=== PATIENT | female | born 1955 | race Caucasian/White ===

== ENCOUNTER → 2020-05-05 09:01 | Outpatient (BNVA) | payer MEDICARE, MEDICAID, SELFPAY | PROVIDERS: PCP Family Medicine Addiction Medicine; Visit Provider Internal Medicine Gastroenterology | DX: R13.10 Dysphagia, unspecified (principal) | CPT/HCPCS: 99212 ==

== ENCOUNTER 2020-06-08 10:43 | Day surgery (SDC) | payer MEDICARE, MEDICAID, SELFPAY ==
--- NOTE | 2020-06-06 15:18 | P.CONAN_ITS ---
Documented by User: Ryanne Adame 06/06/20 15:19 HPI - Anesthesia Eval Consult details Narrative: 65yo F for Upper Endoscopy with Balloon Dilitation Resides at [facility], signs for self per RN at [facility] *DNR* s/p EGD with dilation 03/2019 with MAC per old record: 02 dependant, xarelto for DVT, chronic opioids (cx'd 05/11/20 d/t anticoag not stopped) PMFSH Active Problems Active Problems: All Active Problems (Updated 05/10/20 @ 14:02 by Ryanne Adame) Dysphagia (Acute) Past Medical History Medical History (Updated 05/10/20 @ 14:02 by Ryanne Adame) Anemia Asthma Back pain Cerebrovascular disease Chronic respiratory failure COPD (chronic obstructive pulmonary disease) DVT (deep venous thrombosis) Dysphagia Gastrojejunostomy tube dislodgement GERD (gastroesophageal reflux disease) History of pseudoachalasia of esophagus HLD (hyperlipidemia) Hypothyroid Impaired mobility Neuropathy Osteoarthritis Psychological disorder Surgical History Surgical History (Updated 05/10/20 @ 14:02 by Ryanne Adame) History of esophagogastroduodenoscopy (EGD) Social History Social History Smoking Status: Former smoker Use of substances other than those prescribed or required for medical reasons: No Advance Directives: No Advance Directives Information Provided: Yes Meds Allergies Allergy/AdvReac Type Severity Reaction Status Date / Time ceftriaxone [CEFTRIAXONE] Allergy Unknown UNKNOWN Verified 06/08/20 11:45 monosodium glutamate [MSG] Allergy Unknown UNKNOWN Verified 06/08/20 11:45 morphine [MORPHINE] Allergy Unknown UNKNOWN Verified 06/08/20 11:46 Home Medications Medication Instructions Recorded Confirmed Last Taken Type albuterol sulfate INHALATION 06/08/20 Unknown History albuterol sulfate [Ventolin HFA] INHALATION 06/08/20 Unknown History arformoterol [Brovana] 1 vial INHALATION BID 06/08/20 06/08/20 Unknown History budesonide 1 vial INHALATION BID 06/08/20 06/08/20 Unknown History celecoxib 1 cap PO DAILY 06/08/20 06/08/20 Unknown History diclofenac sodium TOPICAL 06/08/20 Unknown History divalproex PO 06/08/20 06/08/20 06/08/20 History doxycycline hyclate 1 tab PO BID 06/08/20 06/08/20 Unknown History duloxetine 1 cap PO DAILY 06/08/20 06/08/20 06/08/20 History hydromorphone PO 06/08/20 06/08/20 History ipratropium-albuterol [Combivent INHALATION 06/08/20 Unknown History Respimat] levothyroxine 1 tab PO DAILY 06/08/20 06/08/20 06/08/20 History lidocaine HCl 2 DC 06/08/20 Unknown History mirtazapine 1 tab PO BEDTIME 06/08/20 06/08/20 Unknown History nystatin [Nystop] 1 applic TOPICAL BID-TID 06/08/20 06/08/20 Unknown History omeprazole PO 06/08/20 Unknown History ondansetron HCl PO 06/08/20 Unknown History pravastatin 1 tab PO BEDTIME 06/08/20 06/08/20 Unknown History rivaroxaban [Xarelto] 1 tab PO DAILY 06/08/20 06/08/20 06/04/20 History umeclidinium [Incruse Ellipta] 1 puff INHALATION DAILY 06/08/20 06/08/20 Unknown History valproic acid (as sodium salt) PO 06/08/20 Unknown History Exam Exam Date and Time: June 06, 2020 151 Assessment and Plan Assessment Anesthesia Assessment: Chart Reviewed Documented by User: Carla Carter 06/08/20 15:10 [facility] Past Medical History Medical History (Updated 05/10/20 @ 14:02 by Ryanne Adame) Anemia Asthma Back pain Cerebrovascular disease Chronic respiratory failure COPD (chronic obstructive pulmonary disease) DVT (deep venous thrombosis) Dysphagia Gastrojejunostomy tube dislodgement GERD (gastroesophageal reflux disease) History of pseudoachalasia of esophagus HLD (hyperlipidemia) Hypothyroid Impaired mobility Neuropathy Osteoarthritis Psychological disorder Family History Family history of problems with anesthesia: No Surgical History Surgical History (Updated 05/10/20 @ 14:02 by Ryanne Adame) History of esophagogastroduodenoscopy (EGD) History of Problems with Anesthesia: No Social History Social History Smoking Status: Former smoker Use of substances other than those prescribed or required for medical reasons: No Advance Directives: No Advance Directives Information Provided: Yes Meds Allergies Allergy/AdvReac Type Severity Reaction Status Date / Time ceftriaxone [CEFTRIAXONE] Allergy Unknown UNKNOWN Verified 06/08/20 11:45 monosodium glutamate [MSG] Allergy Unknown UNKNOWN Verified 06/08/20 11:45 morphine [MORPHINE] Allergy Unknown UNKNOWN Verified 06/08/20 11:46 Home Medications Medication Instructions Recorded Confirmed Last Taken Type albuterol sulfate INHALATION 06/08/20 Unknown History albuterol sulfate [Ventolin HFA] INHALATION 06/08/20 Unknown History arformoterol [Brovana] 1 vial INHALATION BID 06/08/20 06/08/20 Unknown History budesonide 1 vial INHALATION BID 06/08/20 06/08/20 Unknown History celecoxib 1 cap PO DAILY 06/08/20 06/08/20 Unknown History diclofenac sodium TOPICAL 06/08/20 Unknown History divalproex PO 06/08/20 06/08/20 06/08/20 History doxycycline hyclate 1 tab PO BID 06/08/20 06/08/20 Unknown History duloxetine 1 cap PO DAILY 06/08/20 06/08/20 06/08/20 History hydromorphone PO 06/08/20 06/08/20 History ipratropium-albuterol [Combivent INHALATION 06/08/20 Unknown History Respimat] levothyroxine 1 tab PO DAILY 06/08/20 06/08/20 06/08/20 History lidocaine HCl 2 DC 06/08/20 Unknown History mirtazapine 1 tab PO BEDTIME 06/08/20 06/08/20 Unknown History nystatin [Nystop] 1 applic TOPICAL BID-TID 06/08/20 06/08/20 Unknown History omeprazole PO 06/08/20 Unknown History ondansetron HCl PO 06/08/20 Unknown History pravastatin 1 tab PO BEDTIME 06/08/20 06/08/20 Unknown History rivaroxaban [Xarelto] 1 tab PO DAILY 06/08/20 06/08/20 06/04/20 History umeclidinium [Incruse Ellipta] 1 puff INHALATION DAILY 06/08/20 06/08/20 Unknown History valproic acid (as sodium salt) PO 06/08/20 Unknown History Exam Height,Weight and Vital Signs: Vital Signs Temp Pulse Resp BP Pulse Ox 98.9 F 89 16 130/53 L 92 06/08/20 11:10 06/08/20 11:10 06/08/20 11:10 06/08/20 11:10 06/08/20 11:10 Airway Mallampati Class: II TM Dist: >3cm Neck ROM: Full Denture: Upper Heart: RRR Lungs: CTAB Assessment and Plan Assessment Anesthesia Assessment: Anesthesia Plan Discussed and Chart Reviewed Final Anesthetic Review NPO: Yes ASA Class: III Final Preanesthetic Review: No Changes in Pt Med Stat, Meds/Allgs Chart Reviewed, Consent Obtained/Reviewed and Anes Risks/Benef Reviewed Patient Risk: Intermediate Procedure Risk: Low Assessment/Block/Sedation in SS: Assess/Block/Sedation-SS Anesthetic Plan Anesthetic Plan: MAC: Disposition: Standard PACU
[2020-06-08 11:10] VITALS: BP 130/53; PULSE 89; RESP 16; TEMP 37.2; O2SAT 92; BMI 22.8
--- NOTE | 2020-06-08 11:25 | MHC.SHP ---
Pre-Procedural Eval Section B Chief Complaint: Dysphagia Relevant Family History (Specify if Yes): No Relevant Social History: None Present Medications: see Short Stay Collaborative assessment Medical History: Significant History (Anemia Asthma Back pain Cerebrovascular disease Chronic respiratory failure COPD (chronic obstructive pulmonary disease) DVT (deep venous thrombosis) Dysphagia Gastrojejunostomy tube dislodgement GERD (gastroesophageal reflux disease) History of pseudoachalasia of esophagus HLD (hyperlipidemia) Hypo) History of Previous Operations: Relevant previous surgery/procedure and date(s) (EGD) Allergies: Allergies Allergy/AdvReac Type Severity Reaction Status Date / Time ceftriaxone [CEFTRIAXONE] Allergy Unknown UNKNOWN Unverified 11/11/19 16:04 monosodium glutamate [MSG] Allergy Unknown UNKNOWN Unverified 11/11/19 16:04 morphine [MORPHINE] Allergy Unknown UNKNOWN Unverified 11/11/19 16:04 MORPHINE Allergy Unknown Uncoded 10/13/18 00:00 Review of Systems Sugical H&P ROS: Negative: Constitution, Cardiovascular, Respiratory, Neurological, Psychiatric, Hem-Onc, Allergic/Immunologic, Gastrointestinal, Genitourinary, Musculoskeletal, Integumentary, Endocrine and Eyes/Ears/Nose/Throat Exam Surgical H&P Exam: Normal: HEENT, Normal: Heart, Normal: Lungs, Normal: Abdomen, Normal: Skin and Normal: Neurological and Significant Findings: Extremities (hand contractures) Plan Diagnosis/Plan: Unchanged I have reviewed the history and physical and performed a pertinent physical examination on my patient. No changes have occurred unless specified.
[2020-06-08] MEDS: Lactated Ringers 1,000 ML 50 ML IV (11:49)
--- NOTE | 2020-06-08 12:10 | P.OP_ITS ---
Operative Note Operative Note Date of Service: 06/08/20 Narrative: Procedure Description: EGD FLEXIBLE TRANSORAL UPPER GASTROINTESTINAL ENDOSCOPY UPPER ENDOSCOPY Consent: Indications for the procedure and potential complications of bleeding, perforation, reaction to medications and missed diagnosis were discussed with the patient and informed consent was obtained. Instrument: Olympus GIF H 190 J mid size upper endoscope Monitoring: Vital signs and clinical assessment, continuous EKG monitoring, Pulse oximetry, Carbon Dioxide monitoring and blood pressure monitoring were done throughout the procedure. Procedure: The patient was placed in the left lateral decubitis position and pre-procedure medications were administered and a bite block was placed. The endoscope was inserted into the mouth and advanced under direct vision to the third part of duodenum. A careful inspection was made as the upper endoscope was withdrawn including a retroflexed examination of the proximal stomach; Findings and interventions are described below. Findings: Larynx: normal Esophagus: GE junction at 40 cm. No esophagitis or Olivas?s. Step baca balloon dilation from 15-16.5 mm with linear tear noted at GEJ and mild bleeding. The balloon was also stretched to 12 mm at UES. At around 33 cm from incisors a papilomatous lesion was noted measured about 8- 10 mm which was biopsy excised and then one clip applied due to oozing of blood. Stomach: Mild gastric erythema around cardia. Grade 2 flap valve on retroflexed examination of the cardia. Previously noted submucosal swelling in fundus seen and looked stable. No percutaneous fistula from stomach to skin seen. Duodenum: Normal bulb and descending duodenum, Intervention: Biopsies as noted above Impression and Post Procedure Diagnosis: Endoscopy Findings: esophageal stricture s/p dilation biopsy excision of esophageal lesion Plan: Continue present medications i.e PPI restart anti coagulation tomorrow can allow clears today and advance diet as tolerated tomorrow may need repeat EGD for dilation prn and depending on biopsy of lesion a further f/u EGD
--- NOTE | 2020-06-08 12:10 | PM.OP ---
Brief Operative Note Date of Service: 06/08/20 Pre-op diagnosis: dysphagia Post-op diagnosis: same Procedure: see op note Surgeon: Olga Lerma MD Anesthesia: MAC Estimated blood loss (mL): 0 Condition: stable Disposition: PACU
[2020-06-08 13:02] VITALS: BP 119/64; PULSE 110; RESP 14; TEMP 36.1; O2SAT 96
[2020-06-08 13:19] VITALS: BP 141/71; PULSE 88; RESP 17; TEMP 36.1; O2SAT 97
== END 2020-06-08 15:00 | disposition home or self-care (01) ==
PROVIDERS: Visit Provider Internal Medicine Gastroenterology
PROC: (CPT 43249; principal; 2020-06-08 12:10)
DX: K22.2 Esophageal obstruction (principal); K22.10 Ulcer of esophagus without bleeding; K22.8 Other specified diseases of esophagus; I67.9 Cerebrovascular disease, unspecified; K21.9 Gastro-esophageal reflux disease without esophagitis; J96.10 Chronic respiratory failure, unspecified whether with hypoxia or hypercapnia; Z99.81 Dependence on supplemental oxygen; J44.9 Chronic obstructive pulmonary disease, unspecified; D64.9 Anemia, unspecified; J45.909 Unspecified asthma, uncomplicated; Z79.51 Long term (current) use of inhaled steroids; Z79.01 Long term (current) use of anticoagulants; Z79.899 Other long term (current) drug therapy; Z87.891 Personal history of nicotine dependence
CPT/HCPCS: 43249; 43239; 88305; C1726

== ENCOUNTER → 2020-11-21 13:44 | Outpatient (BNVA) | payer MEDICARE, MEDICAID, SELFPAY | PROVIDERS: Referring Provider Internal Medicine; Visit Provider Internal Medicine Gastroenterology | DX: R13.10 Dysphagia, unspecified (principal); T85.79XA Infection and inflammatory reaction due to other internal prosthetic devices, implants and grafts, initial encounter; K21.9 Gastro-esophageal reflux disease without esophagitis | CPT/HCPCS: 99212 ==

== ENCOUNTER 2021-01-22 08:25 | Day surgery (SDC) | payer MEDICARE, MEDICAID, SELFPAY ==
[2021-01-12 09:58] VITALS: BMI 19.8
--- NOTE | 2021-01-17 10:46 | HO.ANESPROP2 ---
Documented by User: Ryanne Adame NP 01/17/21 10:53 HPI - Anesthesia Eval Consult details Narrative: 65yo F for Upper Endoscopy with Balloon Dilitation s/p same 05/2020 with TIVA Resides at [facility], signs for self per RN at [facility] *DNR* 02 dependant xarelto for DVT chronic opioids PMFSH Active Problems Active Problems: All Active Problems (Updated 01/11/21 @ 13:31 by Madyson Vale, RN) Dysphagia (Acute) Past Medical History Medical History Anemia Asthma Back pain Cerebrovascular disease Chronic respiratory failure COPD (chronic obstructive pulmonary disease) COVID-19 vaccine series completed DVT (deep venous thrombosis) Dysphagia Gastrojejunostomy tube dislodgement GERD (gastroesophageal reflux disease) History of pseudoachalasia of esophagus HLD (hyperlipidemia) Hypothyroid Impaired mobility Neuropathy senior care resident Osteoarthritis Psychological disorder Family History Family history of problems with anesthesia: No Surgical History Surgical History History of esophagogastroduodenoscopy (EGD) Hx of colonoscopy History of Problems with Anesthesia: No Social History Social History Housing Other:: [facility] Are you a primary childcare administrator to a significant other at home: No Do you presently have visiting nurse or other home services: Yes (as above noted) Patient Tobacco Use Status: Current everyday Tobacco user Tobacco use type: Cigarette Cigarette Packs Per Day: 1 Cigarettes Per Day: 20.0 Use of substances other than those prescribed or required for medical reasons: No Have you been hit, kicked, punched, or otherwise hurt by someone within the past year? If so, by whom?: No Are you DNR?: Yes Advance Directives: Yes Advance Directives Information Provided: Yes Advance Directives on File: Yes Advance Directives Date on File: 06/09/20 Recently lost weight without trying: Yes How much weight loss: 14-23 pounds Eating poorly because of decreased appetite: Yes Nutrition screen score: 5 Nutrition Risks: Difficulty swallowing Meds Allergies Allergy/AdvReac Type Severity Reaction Status Date / Time ceftriaxone [CEFTRIAXONE] Allergy Unknown UNKNOWN Verified 11/21/20 13:58 monosodium glutamate [MSG] Allergy Unknown UNKNOWN Verified 11/21/20 13:58 morphine [MORPHINE] Allergy Unknown UNKNOWN Verified 11/21/20 13:58 Home Medications Medication Instructions Recorded Confirmed Last Taken Type albuterol sulfate 90 mcg/actuation 1 inh INHALATION Q4H PRN 06/08/20 01/11/21 Unknown History aerosol inhaler (Ventolin HFA) arformoterol 15 mcg/2 mL solution 1 vial INHALATION BID 06/08/20 01/11/21 Unknown History for nebulization (Brovana) budesonide 0.25 mg/2 mL suspension 1 vial INHALATION BID 06/08/20 01/11/21 Unknown History for nebulization celecoxib 100 mg capsule 1 cap PO DAILY 06/08/20 01/11/21 Unknown History diclofenac sodium 1 % topical gel 1 ea TOPICAL DAILY 06/08/20 01/11/21 Unknown History divalproex 125 mg capsule,delayed 250 mg PO BEDTIME 06/08/20 01/11/21 06/08/20 History release sprinkle doxycycline hyclate 100 mg tablet 1 tab PO BID 06/08/20 01/11/21 Unknown History duloxetine 30 mg capsule,delayed 1 cap PO DAILY 06/08/20 01/11/21 06/08/20 History release hydromorphone 2 mg tablet 2 mg PO Q6H PRN 06/08/20 01/11/21 06/08/20 History ipratropium 20 mcg-albuterol 100 1 puff INHALATION Q4H PRN 06/08/20 01/11/21 Unknown History mcg/actuation mist for inhalation (Combivent Respimat) levothyroxine 125 mcg tablet 1 tab PO DAILY 06/08/20 01/11/21 06/08/20 History lidocaine HCl 10 mg/mL (1 %) 2 AR 06/08/20 Unknown History injection solution mirtazapine 7.5 mg tablet 1 tab PO BEDTIME 06/08/20 06/08/20 Unknown History nystatin 100,000 unit/gram topical 1 applic TOPICAL BID-TID 06/08/20 06/08/20 Unknown History powder (Nystop) omeprazole 20 mg capsule,delayed 40 mg PO BID 06/08/20 01/11/21 Unknown History release ondansetron HCl 4 mg tablet 4 mg PO Q6H PRN 06/08/20 01/11/21 Unknown History pravastatin 40 mg tablet 1 tab PO BEDTIME 06/08/20 01/11/21 Unknown History rivaroxaban 10 mg tablet (Xarelto) 1 tab PO DAILY 06/08/20 01/11/21 06/04/20 History umeclidinium 62.5 mcg/actuation 1 puff INHALATION DAILY 06/08/20 01/11/21 Unknown History blister powder for inhalation (Incruse Ellipta) divalproex 125 mg capsule,delayed 125 mg PO QAM 01/11/21 01/11/21 Unknown History release sprinkle Exam Exam Date and Time: January 17, 2021 104 Height,Weight and Vital Signs: Height 5 ft 8 in Weight 58.967 kg Assessment and Plan Assessment Anesthesia Assessment: Chart Reviewed Final Anesthetic Review Family History of Problems with Anesthesia: No History of Problems with Anesthesia: No Documented by User: Shelly Teran MD 01/22/21 09:37 [facility] Past Medical History Medical History Anemia Asthma Back pain Cerebrovascular disease Chronic respiratory failure COPD (chronic obstructive pulmonary disease) COVID-19 vaccine series completed DVT (deep venous thrombosis) Dysphagia Gastrojejunostomy tube dislodgement GERD (gastroesophageal reflux disease) History of pseudoachalasia of esophagus HLD (hyperlipidemia) Hypothyroid Impaired mobility Neuropathy senior care resident Osteoarthritis Psychological disorder Surgical History Surgical History History of esophagogastroduodenoscopy (EGD) Hx of colonoscopy Social History Social History Housing Other:: [facility] Are you a primary childcare administrator to a significant other at home: No Do you presently have visiting nurse or other home services: Yes (as above noted) Patient Tobacco Use Status: Current everyday Tobacco user Tobacco use type: Cigarette Cigarette Packs Per Day: 1 Cigarettes Per Day: 20.0 Use of substances other than those prescribed or required for medical reasons: No Have you been hit, kicked, punched, or otherwise hurt by someone within the past year? If so, by whom?: No Are you DNR?: Yes Advance Directives: Yes Advance Directives Information Provided: Yes Advance Directives on File: Yes Advance Directives Date on File: 06/09/20 Recently lost weight without trying: Yes How much weight loss: 14-23 pounds Eating poorly because of decreased appetite: Yes Nutrition screen score: 5 Nutrition Risks: Difficulty swallowing Meds Allergies Allergy/AdvReac Type Severity Reaction Status Date / Time ceftriaxone [CEFTRIAXONE] Allergy Unknown UNKNOWN Verified 11/21/20 13:58 monosodium glutamate [MSG] Allergy Unknown UNKNOWN Verified 11/21/20 13:58 morphine [MORPHINE] Allergy Unknown UNKNOWN Verified 11/21/20 13:58 Home Medications Medication Instructions Recorded Confirmed Last Taken Type albuterol sulfate 90 mcg/actuation 1 inh INHALATION Q4H PRN 06/08/20 01/11/21 Unknown History aerosol inhaler (Ventolin HFA) arformoterol 15 mcg/2 mL solution 1 vial INHALATION BID 06/08/20 01/11/21 Unknown History for nebulization (Brovana) budesonide 0.25 mg/2 mL suspension 1 vial INHALATION BID 06/08/20 01/11/21 Unknown History for nebulization celecoxib 100 mg capsule 1 cap PO DAILY 06/08/20 01/11/21 Unknown History diclofenac sodium 1 % topical gel 1 ea TOPICAL DAILY 06/08/20 01/11/21 Unknown History divalproex 125 mg capsule,delayed 250 mg PO BEDTIME 06/08/20 01/11/21 06/08/20 History release sprinkle doxycycline hyclate 100 mg tablet 1 tab PO BID 06/08/20 01/11/21 Unknown History duloxetine 30 mg capsule,delayed 1 cap PO DAILY 06/08/20 01/11/21 06/08/20 History release hydromorphone 2 mg tablet 2 mg PO Q6H PRN 06/08/20 01/11/21 06/08/20 History ipratropium 20 mcg-albuterol 100 1 puff INHALATION Q4H PRN 06/08/20 01/11/21 Unknown History mcg/actuation mist for inhalation (Combivent Respimat) levothyroxine 125 mcg tablet 1 tab PO DAILY 06/08/20 01/11/2106/08/21 History lidocaine HCl 10 mg/mL (1 %) 2 AR 06/08/20 Unknown History injection solution mirtazapine 7.5 mg tablet 1 tab PO BEDTIME 06/08/20 06/08/20 Unknown History nystatin 100,000 unit/gram topical 1 applic TOPICAL BID-TID 06/08/20 06/08/20 Unknown History powder (Nystop) omeprazole 20 mg capsule,delayed 40 mg PO BID 06/08/20 01/11/21 Unknown History release ondansetron HCl 4 mg tablet 4 mg PO Q6H PRN 06/08/20 01/11/21 Unknown History pravastatin 40 mg tablet 1 tab PO BEDTIME 06/08/20 01/11/21 Unknown History rivaroxaban 10 mg tablet (Xarelto) 1 tab PO DAILY 06/08/20 01/11/21 06/04/20 History umeclidinium 62.5 mcg/actuation 1 puff INHALATION DAILY 06/08/20 01/11/21 Unknown History blister powder for inhalation (Incruse Ellipta) divalproex 125 mg capsule,delayed 125 mg PO QAM 01/11/21 01/11/21 Unknown History release sprinkle Exam Airway Mallampati Class: II (No lower teeth) TM Dist: >3cm Neck ROM: Full Denture: Upper Heart: rrr Lungs: cta Assessment and Plan Assessment Anesthesia Assessment: Anesthesia Plan Discussed and Chart Reviewed Final Anesthetic Review NPO: Yes ASA Class: III (Denies and recent fevers, URI) Final Preanesthetic Review: No Changes in Pt Med Stat, Meds/Allgs Chart Reviewed and Consent Obtained/Reviewed Patient Risk: Intermediate Procedure Risk: Intermediate Anesthetic Plan Anesthetic Plan: MAC: Disposition: Standard PACU
[2021-01-22 09:05] VITALS: BP 127/64; PULSE 92; RESP 20; TEMP 37.2; O2SAT 95
[2021-01-22] MEDS: Lactated Ringers 1,000 ML 50 ML IVCONT (09:13)
--- NOTE | 2021-01-22 09:17 | PC.NURSE ---
IV inserted by Stanislav Ryan RN
--- NOTE | 2021-01-22 09:29 | P.HPSUR_ITS ---
Pre-Procedural Eval Section A Date of Service: 01/22/21 Section B Chief Complaint: esophageal dysphagia Relevant Family History (Specify if Yes): No Relevant Social History: Tobacco Use Present Medications: see Short Stay Collaborative assessment Medical History: Significant History (Anemia Asthma Back pain Cerebrovascular disease Chronic respiratory failure COPD (chronic obstructive pulmonary disease) COVID-19 vaccine series completed DVT (deep venous thrombosis) Dysphagia Gastrojejunostomy tube dislodgement GERD (gastroesophageal reflux disease) History of pseudoachalasia of e) History of Previous Operations: Relevant previous surgery/procedure and date(s) (egd) Allergies: Allergies Allergy/AdvReac Type Severity Reaction Status Date / Time ceftriaxone [CEFTRIAXONE] Allergy Unknown UNKNOWN Verified 11/21/20 13:58 monosodium glutamate [MSG] Allergy Unknown UNKNOWN Verified 11/21/20 13:58 morphine [MORPHINE] Allergy Unknown UNKNOWN Verified 11/21/20 13:58 Review of Systems Sugical H&P ROS: Negative: Constitution, Cardiovascular, Respiratory, N eurological, Psychiatric, Hem-Onc, Allergic/Immunologic, Gastrointestinal, Genitourinary, Musculoskeletal, Integumentary, Endocrine and Eyes/Ears/Nose/Throat Exam Surgical H&P Exam: Normal: HEENT, Normal: Heart, Normal: Lungs, Normal: Abdomen and Normal: Skin and Significant Findings: Extremities (contractures fingers) and Significant Findings: Neurological (bed bound due to hip pain) Plan Diagnosis/Plan: Unchanged I have reviewed the history and physical and performed a pertinent physical examination on my patient. No changes have occurred unless specified.
--- NOTE | 2021-01-22 09:43 | PM.OP ---
Brief Operative Note Date of Service: 01/22/21 Pre-op diagnosis: EGD with dilation Post-op diagnosis: same Procedure: see op note Surgeon: Olga Lerma MD Anesthesia: MAC Was an Taxi Cab Driver used for this Procedure?: No Estimated blood loss (mL): 0 Condition: stable Disposition: PACU
--- NOTE | 2021-01-22 09:43 | W.PM.OPN ---
Operative Note Operative Note Date of Service: 01/22/21 Narrative: FLEXIBLE TRANSORAL UPPER GASTROINTESTINAL ENDOSCOPY UPPER ENDOSCOPY Consent: Indications for the procedure and potential complications of bleeding, perforation, reaction to medications and missed diagnosis were discussed with the patient and informed consent was obtained. Instrument: Olympus GIF H 190 J mid size upper endoscope Monitoring: Vital signs and clinical assessment, continuous EKG monitoring, Pulse oximetry, Carbon Dioxide monitoring and blood pressure monitoring were done throughout the procedure. Procedure: The patient was placed in the left lateral decubitis position and pre-procedure medications were administered and a bite block was placed. The endoscope was inserted into the mouth and advanced under direct vision to the third part of duodenum. A careful inspection was made as the upper endoscope was withdrawn including a retroflexed examination of the proximal stomach; Findings and interventions are described below. Findings: Larynx: normal Esophagus: GE junction at 40 cm. Mild esophagitis at 30 cm bx taken. Step baca balloon dilation from 15-16.5 then 17 mm? with small linear tears and heme noted at GEJ. The balloon was also stretched to 13-14 mm at UES. Stomach: Mild gastric erythema around cardia bx taken. Grade 2 flap valve on retroflexed examination of the cardia. Previously noted submucosal swelling in fundus seen and looked stable. No percutaneous fistula from stomach to skin seen. Duodenum: mild bulbar duodenitis, bx taken Intervention: Biopsies as noted above, balloon dilation Impression and Post Procedure Diagnosis: Endoscopy Findings: esophageal stricture s/p dilation duodenitis Plan: Continue present medications i.e PPI restart anti coagulation tomorrow can allow clears today and advance diet as tolerated tomorrow may need repeat EGD for dilation prn
[2021-01-22 10:08] VITALS: BP 126/64; PULSE 105; RESP 16; TEMP 36.1; O2SAT 98
[2021-01-22 10:25] VITALS: BP 110/66; PULSE 101; RESP 18; O2SAT 98
[2021-01-22] MEDS: Albuterol Sulfate (0.083%) 2.5 MG/3 ML VIAL.NEB INHALE (10:25)
[2021-01-22 10:40] VITALS: BP 114/68; PULSE 108; RESP 18; TEMP 36.2; O2SAT 97
== END 2021-01-22 11:45 | disposition home or self-care (01) ==
PROVIDERS: PCP Family Medicine Geriatric Medicine; Visit Provider Internal Medicine Gastroenterology
PROC: (CPT 43249; principal; 2021-01-22 08:30)
DX: R13.14 Dysphagia, pharyngoesophageal phase (principal); K21.9 Gastro-esophageal reflux disease without esophagitis; K22.2 Esophageal obstruction; K20.80 Other esophagitis without bleeding; K20.90 Esophagitis, unspecified without bleeding; J96.10 Chronic respiratory failure, unspecified whether with hypoxia or hypercapnia; J44.9 Chronic obstructive pulmonary disease, unspecified; G62.9 Polyneuropathy, unspecified; D64.9 Anemia, unspecified; Z74.09 Other reduced mobility; F17.210 Nicotine dependence, cigarettes, uncomplicated; Z88.8 Allergy status to other drugs, medicaments and biological substances
CPT/HCPCS: 43249; 43239; 88305; 88312; 88342; C1726

== ENCOUNTER → 2021-09-17 13:33 | Outpatient (BNVA) | payer OTHER, MEDICAID, SELFPAY | PROVIDERS: PCP Family Medicine Geriatric Medicine; Visit Provider Internal Medicine Gastroenterology | DX: R13.19 Other dysphagia (principal) | CPT/HCPCS: 99212 ==

== ENCOUNTER 2022-02-11 11:50 | Day surgery (SDC) | payer OTHER, MEDICAID, SELFPAY ==
--- NOTE | 2022-02-08 10:41 | P.CONAN_ITS ---
Documented by User: Ryanne Adame NP 02/08/22 10:53 HPI - Anesthesia Eval Consult details Narrative: 67yo F for Upper Endoscopy s/p EGD 12/2020 with MAC 02 dependant xarelto for DVT chronic opioids PMFSH Active Problems Active Problems: All Active Problems (Updated 02/07/22 @ 14:27 by Aneta Brown, FREDO) Dysphagia (Acute) Past Medical History Medical History (Updated 02/07/22 @ 14:27 by Aneta Brown, FREDO) Anemia Anxiety Asthma Back pain Cerebrovascular disease Chronic respiratory failure Constipation COPD (chronic obstructive pulmonary disease) COVID-19 vaccine series completed DVT (deep venous thrombosis) Dysphagia Gastrojejunostomy tube dislodgement GERD (gastroesophageal reflux disease) History of pseudoachalasia of esophagus HLD (hyperlipidemia) Hypothyroid Impaired mobility Major depressive disorder Neuropathy assisted resident Osteoarthritis Psychological disorder 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 Are you a primary sub acute care nurse to a significant other at home: No Do you presently have visiting nurse or other home services: Yes (as above noted) Patient Tobacco Use Status: Former Tobacco user Tobacco use type: Cigarette Cigarette Packs Per Day: 1 Cigarettes Per Day: 20.0 Are you DNR?: No Advance Directives: Yes Advance Directives Information Provided: No Advance Directives on File: Yes Advance Directives Date on File: 06/09/20 Meds Allergies Allergy/AdvReac Type Severity Reaction Status Date / Time ceftriaxone [CEFTRIAXONE] Allergy Unknown UNKNOWN Verified 09/17/21 14:10 monosodium glutamate [MSG] Allergy Unknown UNKNOWN Verified 09/17/21 14:10 morphine [MORPHINE] Allergy Unknown UNKNOWN Verified 09/17/21 14:10 Home Medications Medication Instructions Recorded Confirmed Last Taken Type divalproex 125 mg capsule,delayed 250 mg PO BEDTIME 06/08/20 02/07/22 01/22/21 05:00 History release sprinkle duloxetine 30 mg capsule,delayed 1 cap PO DAILY 06/08/20 02/07/22 06/08/20 History release hydromorphone 2 mg tablet 2 mg PO Q6H PRN Pain 06/08/20 02/07/22 06/08/20 History ipratropium 20 mcg-albuterol 100 1 puff inhalation Q4H PRN 06/08/20 02/07/22 Unknown History mcg/actuation mist for inhalation Shortness Of Breath (Combivent Respimat) omeprazole 20 mg capsule,delayed 40 mg PO BID 06/08/20 02/07/22 Unknown History release ondansetron HCl 4 mg tablet 4 mg PO Q6H PRN Nausea And Vomiting 06/08/20 02/07/22 Unknown History rivaroxaban 10 mg tablet (Xarelto) 1 tab PO DAILY 06/08/20 02/07/22 01/19/21 History fluticasone furoate 200 1 ea inhalation DAILY 09/17/21 02/07/22 Unknown History mcg-vilanterol 25 mcg/dose inhalation powder (Breo Ellipta) acetaminophen 325 mg tablet 650 mg PO Q4H PRN Pain 02/07/22 02/07/22 Unknown History albuterol sulfate 90 mcg/actuation 1 inh inhalation QID PRN Shortness 02/07/22 02/07/22 Unknown History aerosol inhaler (ProAir HFA) Of Breath Or Wheezing atorvastatin 40 mg tablet 1 tab PO DAILY 02/07/22 02/07/22 Unknown History benzonatate 100 mg capsule 100 mg PO TID PRN Cough 02/07/22 02/07/22 Unknown History bisacodyl 10 mg rectal suppository 10 mg [place] DAILY PRN Constipation 02/07/22 02/07/22 Unknown History calcium carbonate 600 mg-vitamin 1 tab PO BID 02/07/22 02/07/22 Unknown History D3 5 mcg (200 unit) tablet (Calcium 600 + D(3)) carboxymethylcellulose sodium 2 drp ophthalmic (eye) BID 02/07/22 02/07/22 Unknown History dextromethorphan-guaifenesin 10 10 ml PO Q4H PRN Cough 02/07/22 02/07/22 Unknown History mg-100 mg/5 mL oral liquid levothyroxine 75 mcg tablet 1 tab PO DAILY 02/07/22 02/07/22 Unknown History polyethylene glycol 3350 17 17 g PO DAILY PRN Constipation 02/07/22 02/07/22 Unk nown History gram/dose oral powder Exam Exam Date and Time: February 08, 2022 1041 Height,Weight and Vital Signs: Weight 62.868 kg Pertinent Lab Results Pertinent Lab Results: Labs from outside facility 01/18/22 WBC 7.1 Hgb 9.2 L Hct 30.0 L PLT 300 Na 143 K 3.9 CL 109 CO2 29 BUN 11 Creat 0.5 Assessment and Plan Assessment Anesthesia Assessment: Chart Reviewed Final Anesthetic Review Family History of Problems with Anesthesia: No History of Problems with Anesthesia: No Documented by User: Shelly Teran MD 02/11/22 11:56 [facility] Past Medical History Medical History (Updated 02/07/22 @ 14:27 by Aneta Brown, RN) Anemia Anxiety Asthma Back pain Cerebrovascular disease Chronic respiratory failure Constipation COPD (chronic obstructive pulmonary disease) COVID-19 vaccine series completed DVT (deep venous thrombosis) Dysphagia Gastrojejunostomy tube dislodgement GERD (gastroesophageal reflux disease) History of pseudoachalasia of esophagus HLD (hyperlipidemia) Hypothyroid Impaired mobility Major depressive disorder Neuropathy assisted resident Osteoarthritis Psychological disorder 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 Are you a primary sub acute care nurse to a significant other at home: No Do you presently have visiting nurse or other home services: Yes (as above noted) Patient Tobacco Use Status: Former Tobacco user Tobacco use type: Cigarette Cigarette Packs Per Day: 1 Cigarettes Per Day: 20.0 Are you DNR?: No Advance Directives: Yes Advance Directives Information Provided: No Advance Directives on File: Yes Advance Directives Date on File: 06/09/20 Meds Allergies Allergy/AdvReac Type Severity Reaction Status Date / Time ceftriaxone [CEFTRIAXONE] Allergy Unknown UNKNOWN Verified 09/17/21 14:10 monosodium glutamate [MSG] Allergy Unknown UNKNOWN Verified 09/17/21 14:10 morphine [MORPHINE] Allergy Unknown UNKNOWN Verified 09/17/21 14:10 Home Medications Medication Instructions Recorded Confirmed Last Taken Type divalproex 125 mg capsule,delayed 250 mg PO BEDTIME 06/08/20 02/07/22 01/22/21 05:00 History release sprinkle duloxetine 30 mg capsule,delayed 1 cap PO DAILY 06/08/20 02/07/22 06/08/20 History release hydromorphone 2 mg tablet 2 mg PO Q6H PRN Pain 06/08/20 02/07/22 06/08/20 History ipratropium 20 mcg-albuterol 100 1 puff inhalation Q4H PRN 06/08/20 02/07/22 Unknown History mcg/actuation mist for inhalation Shortness Of Breath (Combivent Respimat) omeprazole 20 mg capsule,delayed 40 mg PO BID 06/08/20 02/07/22 Unknown History release ondansetron HCl 4 mg tablet 4 mg PO Q6H PRN Nausea And Vomiting 06/08/20 02/07/22 Unknown History rivaroxaban 10 mg tablet (Xarelto) 1 tab PO DAILY 06/08/20 02/07/22 01/19/21 History fluticasone furoate 200 1 ea inhalation DAILY 09/17/21 02/07/22 Unknown History mcg-vilanterol 25 mcg/dose inhalation powder (Breo Ellipta) acetaminophen 325 mg tablet 650 mg PO Q4H PRN Pain 02/07/22 02/07/22 Unknown History albuterol sulfate 90 mcg/actuation 1 inh inhalation QID PRN Shortness 02/07/22 02/07/22 Unknown History aerosol inhaler (ProAir HFA) Of Breath Or Wheezing atorvastatin 40 mg tablet 1 tab PO DAILY 02/07/22 02/07/22 Unknown History benzonatate 100 mg capsule 100 mg PO TID PRN Cough 02/07/22 02/07/22 Unknown History bisacodyl 10 mg rectal suppository 10 mg [place] DAILY PRN Constipation 02/07/22 02/07/22 Unknown History calcium carbonate 600 mg-vitamin 1 tab PO BID 02/07/22 02/07/22 Unknown History D3 5 mcg (200 unit) tablet (Calcium 600 + D(3)) carboxymethylcellulose sodium 2 drp ophthalmic (eye) BID 02/07/22 02/07/22 Unknown History dextromethorphan-guaifenesin 10 10 ml PO Q4H PRN Cough 02/07/22 02/07/22 Unknown History mg-100 mg/5 mL oral liquid levothyroxine 75 mcg tablet 1 tab PO DAILY 02/07/22 02/07/22 Unknown History polyethylene glycol 3350 17 17 g PO DAILY PRN Constipation 02/07/22 02/07/22 Unknown History gram/dose oral powder Exam Airway Mallampati Class: II TM Dist: >3cm Neck ROM: Full Denture: Upper Heart: rrr Lungs: cta Assessment and Plan Assessment Anesthesia Assessment: Anesthesia Plan Discussed Final Anesthetic Review NPO: Yes ASA Class: III Final Preanesthetic Review: No Changes in Pt Med Stat, Meds/Allgs Chart Reviewed and Consent Obtained/Reviewed Patient Risk: Intermediate Procedure Risk: Intermediate Anesthetic Plan Anesthetic Plan: MAC: Disposition: Standard PACU
[2022-02-11 12:36] VITALS: BP 102/75; PULSE 90; RESP 16; TEMP 36.9; O2SAT 96; BMI 20.6
--- NOTE | 2022-02-11 13:46 | MHC.SHP ---
Pre-Procedural Eval Section A Date of Service: 02/11/22 Section B Chief Complaint: Dysphagia, Details of Present Illness: 67y.o F with PMH of benign lower esophageal stricture s/p balloon dilation in the past. Here for repeat EGD with dil for worsening dysphagia. Last EGD 12/2020 with balloon dil to 17 mm in lower esophagus and to 14 mm at [facility]. Relevant Social History: None Present Medications: see Short Stay Collaborative assessment Medical History: Significant History (Anemia Asthma Back pain Cerebrovascular disease Chronic respiratory failure COPD DVT Dysphagia GERD ) History of Previous Operations: Relevant previous surgery/procedure and date(s) (EGD 12/2020) Allergies: Allergies Allergy/AdvReac Type Severity Reaction Status Date / Time ceftriaxone [CEFTRIAXONE] Allergy Unknown UNKNOWN Verified 09/17/21 14:10 monosodium glutamate [MSG] Allergy Unknown UNKNOWN Verified 09/17/21 14:10 morphine [MORPHINE] Allergy Unknown UNKNOWN Verified 09/17/21 14:10 Review of Systems Review of Systems Comment: 10 point ROS negative except as above Exam Exam Comment: Gen appear: No acute distress, HEENT: no icterus Chest: No overt resp distress Abd: soft, nontender, nondistended Psych: Stable affect, answering questions appropriately Neuro: A/Ox3, upper extemities with contractures Ext: no peripheral edema Plan Diagnosis/Plan: Unchanged I have reviewed the history and physical and performed a pertinent physical examination on my patient. No changes have occurred unless specified. Time Spent With Patient Time: Total time managing care of this patient today ____ minutes.
[2022-02-11 14:05] VITALS: BP 101/48; PULSE 117; RESP 16; TEMP 36.8; O2SAT 96
--- NOTE | 2022-02-11 14:11 | P.OP_ITS ---
Operative Note Operative Note Date of Service: 02/11/22 Narrative: Procedure: Esophagogastroduodenoscopy Endoscopist: Laura Littlejohn MD Indication: Dysphagia Anesthesia Provider: Griselda Elizondo CRNA Anesthesia Type: MAC EGD Procedure:?? The procedure, indications, preparation and potential complications were reviewed with the patient, who indicated understanding and gave written informed consent to proceed. A physical exam was performed. The endoscope was introduced through the mouth, and advanced to the second part of duodenum. The mucosa was carefully examined on slow withdrawal of the endoscope. The patient tolerated the procedure well. There were no immediate complications.? ? EGD Findings:? * Esophagus:? Normal mucosa noted in the entire esophagus. No stricture was seen or felt in upper esophagus. Narrowing of lower esophagus was noted but scope was able to traverse through this with minimal resistance. The Z line was at 38 cm. A small hiatal hernia was noted. * Stomach:? Normal mucosa was noted in the stomach. Previous PEG scar was seen. Retroflexion in the cardia confirmed the size and morphology of the hiatal hernia. * Duodenum:? Normal mucosa was noted in the whole of the examined duodenum. Additional intervention: A fixed-wire esophageal balloon was inserted through the scope and incrementally insufflated from 12 to 13.5. Two linear tears with heme were noted at 35 cm and 38 cm, indicating successful dilation. ? EGD Impressions:? * Lower esophageal stricture (dilation) * Hiatal hernia * Previous PEG scar * Normal duodenum (biopsy) ?? Recommendations:?? * Start/continue PPI therapy. * Resume anticoagulation TOMORROW * Okay to take liquids today, can advance to diet as tolerated tomorrow. * Repeat EGD will be scheduled for serial dilation. Above has been reviewed with the patient. Relevant educational hand outs were provided at discharge.
[2022-02-11 14:20] VITALS: BP 104/60; PULSE 80; RESP 16; TEMP 36.4; O2SAT 95
--- NOTE | 2022-02-11 14:59 | PC.NURSE ---
thorough report provided to Guerline Swift Lpn of [facility] questions asked and answered
== END 2022-02-11 15:00 | disposition home or self-care (01) ==
PROVIDERS: PCP Family Medicine Geriatric Medicine; Visit Provider Internal Medicine
PROC: 0DJ08ZZ Inspection of Upper Intestinal Tract, Via Natural or Artificial Opening Endoscopic (ICD-10-PCS; CPT 43235; principal; 2022-02-11 12:50)
DX: R13.10 Dysphagia, unspecified (principal); K22.2 Esophageal obstruction; K44.9 Diaphragmatic hernia without obstruction or gangrene; K21.9 Gastro-esophageal reflux disease without esophagitis; I67.9 Cerebrovascular disease, unspecified; J44.9 Chronic obstructive pulmonary disease, unspecified; J96.10 Chronic respiratory failure, unspecified whether with hypoxia or hypercapnia; I82.401 Acute embolism and thrombosis of unspecified deep veins of right lower extremity; E78.5 Hyperlipidemia, unspecified; D64.9 Anemia, unspecified; Z79.01 Long term (current) use of anticoagulants; Z99.81 Dependence on supplemental oxygen; Z79.51 Long term (current) use of inhaled steroids; Z79.899 Other long term (current) drug therapy; Z79.891 Long term (current) use of opiate analgesic; Z88.8 Allergy status to other drugs, medicaments and biological substances; Z66 Do not resuscitate; Z87.891 Personal history of nicotine dependence
CPT/HCPCS: 43249; C1726

== ENCOUNTER → 2022-04-26 11:17 | Outpatient (BNVA) | payer OTHER, MEDICAID, SELFPAY | PROVIDERS: PCP Family Medicine Geriatric Medicine; Visit Provider Internal Medicine Gastroenterology | DX: R13.10 Dysphagia, unspecified (principal); R62.7 Adult failure to thrive; Z68.20 Body mass index [BMI] 20.0-20.9, adult; Z93.1 Gastrostomy status | CPT/HCPCS: 99212 ==

== ENCOUNTER 2022-06-27 14:00 | Day surgery (SDC) | payer OTHER, MEDICAID, SELFPAY ==
[2022-06-17 15:51] VITALS: BMI 21.8
--- NOTE | 2022-06-26 10:17 | P.CONAN_ITS ---
HPI - Anesthesia Eval Consult details Narrative: 67yo F for ?Upper Endoscopy with Balloon Dilitation s/p EGD 01/2022 with MAC 02 dependant xarelto for DVT chronic opioids PMFSH Active Problems Active Problems: All Active Problems (Updated 06/17/22 @ 12:46 by Naomy Ortiz RN) Dysphagia (Acute) Past Medical History Medical History Anemia Anxiety Asthma Back pain Bacteremia Cellulitis Cerebrovascular disease CHF (congestive heart failure) Chronic respiratory failure Constipation Contracture of hand COPD (chronic obstructive pulmonary disease) COVID-19 vaccine series completed DVT (deep venous thrombosis) Dysphagia Gastritis Gastrojejunostomy tube dislodgement GERD (gastroesophageal reflux disease) History of pseudoachalasia of esophagus HLD (hyperlipidemia) Hypothyroid Impaired mobility Major depressive disorder Neuropathy care home resident Osteoarthritis Peripheral vascular disease Pneumothorax Psychological disorder Respiratory failure with hypoxia Scoliosis Sepsis Tachycardia 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 Family History Family history of problems with anesthesia: No Surgical History Surgical History History of esophagogastroduodenoscopy (EGD) History of inguinal hernia repair History of total right hip replacement Hx of colonoscopy History of Problems with Anesthesia: No Social History Social History Housing Other:: [facility] Are you a primary childbirth and infant care teacher to a significant other at home: No Do you presently have visiting nurse or other home services: Yes (as above noted) Patient Tobacco Use Status: Former Tobacco user Quit Date: 1991 Tobacco use type: Cigarette Cigarette Packs Per Day: 1 Cigarettes Per Day: 20.0 Advance Directives Date on File: 06/09/20 Meds Allergies Allergy/AdvReac Type Severity Reaction Status Date / Time ceftriaxone [CEFTRIAXONE] Allergy Unknown UNKNOWN Verified 06/27/22 14:15 monosodium glutamate [MSG] Allergy Unknown UNKNOWN Verified 06/27/22 14:15 morphine [MORPHINE] Allergy Unknown UNKNOWN Verified 06/27/22 14:15 Home Medications Medication Instructions Recorded Confirmed Last Taken Type divalproex 125 mg capsule,delayed 250 mg PO BEDTIME 06/08/20 06/17/22 01/22/21 05:00 History release sprinkle duloxetine 30 mg capsule,delayed 1 cap PO DAILY 06/08/20 06/17/22 06/08/20 History release hydromorphone 2 mg tablet 2 mg PO Q6H PRN Pain 06/08/20 06/17/22 06/27/22 11:30 History ipratropium 20 mcg-albuterol 100 1 puff inhalation Q4H PRN 06/08/20 06/17/22 Unknown History mcg/actuation mist for inhalation Shortness Of Breath (Combivent Respimat) omeprazole 20 mg capsule,delayed 40 mg PO BID 06/08/20 06/17/22 Unknown History release ondansetron HCl 4 mg tablet 4 mg PO Q6H PRN Nausea And Vomiting 06/08/20 06/17/22 Unknown History rivaroxaban 10 mg tablet (Xarelto) 1 tab PO DAILY 06/08/20 06/17/22 06/25/22 History fluticasone furoate 200 1 ea inhalation DAILY 09/17/21 06/17/22 Unknown History mcg-vilanterol 25 mcg/dose inhalation powder (Breo Ellipta) acetaminophen 325 mg tablet 650 mg PO Q4H PRN Pain 02/07/22 06/17/22 Unknown History albuterol sulfate 90 mcg/actuation 1 inh inhalation QID PRN Shortness 02/07/22 06/17/22 Unknown History aerosol inhaler (ProAir HFA) Of Breath Or Wheezing benzonatate 100 mg capsule 100 mg PO TID PRN Cough 02/07/22 06/17/22 Unknown History bisacodyl 10 mg rectal suppository 10 mg [place] DAILY PRN Constipation 02/07/22 06/17/22 Unknown History calcium carbonate 600 mg-vitamin 1 tab PO BID 02/07/22 06/17/22 Unknown History D3 5 mcg (200 unit) tablet (Calcium 600 + D(3)) carboxymethylcellulose sodium 2 drp ophthalmic (eye) BID 02/07/22 06/17/22 Unknown History dextromethorphan-guaifenesin 10 10 ml PO Q4H PRN Cough 02/07/22 06/17/22 Unknown History mg-100 mg/5 mL oral liquid levothyroxine 75 mcg tablet 1 tab PO DAILY 02/07/22 06/17/22 Unknown History polyethylene glycol 3350 17 17 g PO DAILY PRN Constipation 02/07/22 06/17/22 Unknown History gram/dose oral powder atorvastatin 40 mg tablet (Lipitor) 40 mg PO BEDTIME 04/26/22 06/17/22 Unknown History magnesium hydroxide 400 mg/5 mL 30 ml PO DAILY PRN Constipation 04/26/22 06/17/22 Unknown History oral suspension (Milk of Magnesia) sennosides 8.6 mg capsule (senna) 8.6 mg PO BID 04/26/22 06/17/22 Unknown History guaifenesin 600 mg tablet, 600 mg PO BID 06/17/22 06/17/22 Unknown History extended release 12 hr sodium chloride 0.65 % nasal spray 2 spray intranasal QID PRN Dry 06/17/22 06/17/22 Unknown History aerosol (Saline Nasal) Nasal Passages Exam Exam Date and Time: June 26, 2022 1017 Height,Weight and Vital Signs: Height 5 ft 9 in Weight 67.132 kg Pertinent Lab Results Pertinent Lab Results: 05/2022 from outside facility WBC 9.0 Hgb 9.3 L Hct 30.9 L Plt 257 Na 140 K 3.5 Cl 104 Co2 30 Bun 12 Creat 0.56 Narrative Narrative: CXR 04/2022 No acute process Assessment and Plan Assessment Anesthesia Assessment: Chart Reviewed Final Anesthetic Review Family History of Problems with Anesthesia: No History of Problems with Anesthesia: No
--- NOTE | 2022-06-27 14:00 | MHC.SHP ---
Pre-Procedural Eval Section A Date of Service: 06/27/22 Section B Chief Complaint: Dysphagia, unspecified Relevant Family History (Specify if Yes): No Relevant Social History: None Present Medications: see Short Stay Collaborative assessment Medical History: Significant History ( Anemia Anxiety Asthma Back pain Cerebrovascular disease Chronic respiratory failure Constipation COPD (chronic obstructive pulmonary disease) COVID-19 vaccine series completed DVT (deep venous thrombosis) Dysphagia Gastrojejunostomy tube dislodgement GERD (gastroesophageal reflux disease) History o) History of Previous Operations: Relevant previous surgery/procedure and date(s) Allergies: Allergies Allergy/AdvReac Type Severity Reaction Status Date / Time ceftriaxone [CEFTRIAXONE] Allergy Unknown UNKNOWN Verified 06/17/22 15:10 monosodium glutamate [MSG] Allergy Unknown UNKNOWN Verified 06/17/22 15:10 morphine [MORPHINE] Allergy Unknown UNKNOWN Verified 06/17/22 15:10 Review of Systems Sugical H&P ROS: Negative: Constitution, Cardiovascular, Respiratory, Neurological, Psychiatric, Hem-Onc, Allergic/Immunologic, Gastrointestinal, Genitourinary, Musculoskeletal, Integumentary, Endocrine and Eyes/Ears/Nose/Throat Exam Surgical H&P Exam: Normal: HEENT, Normal: Heart, Normal: Lungs, Normal: Extremities, Normal: Abdomen, Normal: Skin and Normal: Neurological Exam Comment: contractures hands Plan Diagnosis/Plan: Unchanged I have reviewed the history and physical and performed a pertinent physical examination on my patient. No changes have occurred unless specified. Time Spent With Patient Time: Total time managing care of this patient today ____ minutes.
[2022-06-27 14:04] VITALS: BMI 20.9
[2022-06-27 14:06] VITALS: BP 127/70; PULSE 86; RESP 16; TEMP 37.1; O2SAT 94
--- NOTE | 2022-06-27 14:15 | P.CONAN_ITS ---
[facility] Active Problems Active Problems: All Active Problems (Updated 06/17/22 @ 12:46 by Naomy Ortiz RN) Dysphagia (Acute) Past Medical History Medical History Anemia Anxiety Asthma Back pain Bacteremia Cellulitis Cerebrovascular disease CHF (congestive heart failure) Chronic respiratory failure Constipation Contracture of hand COPD (chronic obstructive pulmonary disease) COVID-19 vaccine series completed DVT (deep venous thrombosis) Dysphagia Gastritis Gastrojejunostomy tube dislodgement GERD (gastroesophageal reflux disease) History of pseudoachalasia of esophagus HLD (hyperlipidemia) Hypothyroid Impaired mobility Major depressive disorder Neuropathy 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 Osteoarthritis Peripheral vascular disease Pneumothorax Psychological disorder Respiratory failure with hypoxia Scoliosis Sepsis Tachycardia 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 Family History Family history of problems with anesthesia: No Surgical History Surgical History History of esophagogastroduodenoscopy (EGD) History of inguinal hernia repair History of total right hip replacement Hx of colonoscopy History of Problems with Anesthesia: No Social History Social History Housing Other:: [facility] Are you a primary career technical counselor to a significant other at home: No Do you presently have visiting nurse or other home services: Yes (as above noted) Patient Tobacco Use Status: Former Tobacco user Quit Date: 1991 Tobacco use type: Cigarette Cigarette Packs Per Day: 1 Cigarettes Per Day: 20.0 Smoked in Last 30 Days: No Use of substances other than those prescribed or required for medical reasons: No Are you DNR?: No Advance Directives: Yes Advance Directives on File: Yes Advance Directives Date on File: 06/09/20 Meds Allergies Allergy/AdvReac Type Severity Reaction Status Date / Time ceftriaxone [CEFTRIAXONE] Allergy Unknown UNKNOWN Verified 06/27/22 14:15 monosodium glutamate [MSG] Allergy Unknown UNKNOWN Verified 06/27/22 14:15 morphine [MORPHINE] Allergy Unknown UNKNOWN Verified 06/27/22 14:15 Active Medications: Current Medications Albuterol Sulfate (Albuterol Sulfate (0.083%) 2.5 Mg/3 Ml Vial.Neb) 2.5 mg INHALE ONCE PRN PRN Reason: Shortness of Breath/Wheezing Lactated Ringer's (Lr) 1,000 mls @ 50 mls/hr IVCONT .Q20H SIA Home Medications Medication Instructions Recorded Confirmed Last Taken Type divalproex 125 mg capsule,delayed 250 mg PO BEDTIME 06/08/20 06/17/22 01/22/21 05:00 History release sprinkle duloxetine 30 mg capsule,delayed 1 cap PO DAILY 06/08/20 06/17/22 06/08/20 History release hydromorphone 2 mg tablet 2 mg PO Q6H PRN Pain 06/08/20 06/17/22 06/08/20 History ipratropium 20 mcg-albuterol 100 1 puff inhalation Q4H PRN 06/08/20 06/17/22 Unknown History mcg/actuation mist for inhalation Shortness Of Breath (Combivent Respimat) omeprazole 20 mg capsule,delayed 40 mg PO BID 06/08/20 06/17/22 Unknown History release ondansetron HCl 4 mg tablet 4 mg PO Q6H PRN Nausea And Vomiting 06/08/20 06/17/22 Unknown History rivaroxaban 10 mg tablet (Xarelto) 1 tab PO DAILY 06/08/20 06/17/22 01/19/21 History fluticasone furoate 200 1 ea inhalation DAILY 09/17/21 06/17/22 Unknown History mcg-vilanterol 25 mcg/dose inhalation powder (Breo Ellipta) acetaminophen 325 mg tablet 650 mg PO Q4H PRN Pain 02/07/22 06/17/22 Unknown History albuterol sulfate 90 mcg/actuation 1 inh inhalation QID PRN Shortness 02/07/22 06/17/22 Unknown History aerosol inhaler (ProAir HFA) Of Breath Or Wheezing benzonatate 100 mg capsule 100 mg PO TID PRN Cough 02/07/22 06/17/22 Unknown History bisacodyl 10 mg rectal suppository 10 mg ME DAILY PRN Constipation 02/07/22 06/17/22 Unknown History calcium carbonate 600 mg-vitamin 1 tab PO BID 02/07/22 06/17/22 Unknown History D3 5 mcg (200 unit) tablet (Calcium 600 + D(3)) carboxymethylcellulose sodium 2 drp ophthalmic (eye) BID 02/07/22 06/17/22 Unknown History dextromethorphan-guaifenesin 10 10 ml PO Q4H PRN Cough 02/07/22 06/17/22 Unknown History mg-100 mg/5 mL oral liquid levothyroxine 75 mcg tablet 1 tab PO DAILY 02/07/22 06/17/22 Unknown History polyethylene glycol 3350 17 17 g PO DAILY PRN Constipation 02/07/22 06/17/22 Unknown History gram/dose oral powder atorvastatin 40 mg tablet (Lipitor) 40 mg PO BEDTIME 04/26/22 06/17/22 Unknown History magnesium hydroxide 400 mg/5 mL 30 ml PO DAILY PRN Constipation 04/26/22 06/17/22 Unknown History oral suspension (Milk of Magnesia) sennosides 8.6 mg capsule (senna) 8.6 mg PO BID 04/26/22 06/17/22 Unknown Histo ry guaifenesin 600 mg tablet, 600 mg PO BID 06/17/22 06/17/22 Unknown History extended release 12 hr sodium chloride 0.65 % nasal spray 2 spray intranasal QID PRN Dry 06/17/22 06/17/22 Unknown History aerosol (Saline Nasal) Nasal Passages Exam Exam Date and Time: June 27, 2022 1415 Height,Weight and Vital Signs: Height 5 ft 9 in Weight 64.1 kg Last Vital Signs Temp 98.7 F 06/27/22 14:06 Pulse 86 06/27/22 14:06 Resp 16 06/27/22 14:06 BP 127/70 06/27/22 14:06 Pulse Ox 94 06/27/22 14:06 O2 Del Method Room Air 06/27/22 14:06 Airway Mallampati Class: II TM Dist: >3cm Neck ROM: Full Denture: Upper and Lower Heart: RRR Lungs: CTA Assessment and Plan Assessment Anesthesia Assessment: Anesthesia Plan Discussed Final Anesthetic Review Family History of Problems with Anesthesia: No History of Problems with Anesthesia: No ASA Class: III Final Preanesthetic Review: Meds/Allgs Chart Reviewed, Consent Obtained/Reviewed and Anes Risks/Benef Reviewed Patient Risk: Intermediate Procedure Risk: Low Anesthetic Plan Anesthetic Plan: MAC: Disposition: Standard PACU
[2022-06-27] MEDS: Lactated Ringers 1,000 ML 50 ML IVCONT (14:38)
--- NOTE | 2022-06-27 14:39 | W.PM.OPN ---
Operative Note Operative Note Date of Service: 06/27/22 Narrative: Procedure Description: EGD Indication: dysphagia Anesthesia: MAC FLEXIBLE TRANSORAL UPPER GASTROINTESTINAL ENDOSCOPY UPPER ENDOSCOPY Consent: Indications for the procedure and potential complications of bleeding, perforation, reaction to medications and missed diagnosis were discussed with the patient and informed consent was obtained. Instrument: Olympus GIF H 190 J mid size upper endoscope Monitoring: Vital signs and clinical assessment, continuous EKG monitoring, Pulse oximetry, Carbon Dioxide monitoring and blood pressure monitoring were done throughout the procedure. Procedure: The patient was placed in the left lateral decubitis position and pre-procedure medications were administered and a bite block was placed. The endoscope was inserted into the mouth and advanced under direct vision to the third part of duodenum. A careful inspection was made as the upper endoscope was withdrawn including a retroflexed examination of the proximal stomach; Findings and interventions are described below. Findings Larynx: normal Esophagus: GE junction at 40 cm.. Step baca balloon dilation from 15-16.5 with small linear tears and heme noted at GEJ. The balloon was also stretched to 15 mm at UES with resistance felt Stomach: Mild gastric erythema. Grade 2 flap valve on retroflexed examination of the cardia. Previously noted submucosal swelling in fundus seen and looked stable. Duodenum: normal Intervention: balloon dilation Impression and Post Procedure Diagnosis: Endoscopy Findings: esophageal stricture s/p dilation Plan: Continue present medications i.e PPI restart anti coagulation tomorrow evening can allow clears today and advance diet as tolerated tomorrow repeat EGD for dilation prn
[2022-06-27 15:00] VITALS: BP 129/72; PULSE 89; RESP 12; TEMP 36.4; O2SAT 98
--- NOTE | 2022-06-27 15:03 | HO.POSTANES ---
Post Anesthesia Evaluation Post Anesthesia Evaluation Vital Signs: Vital Signs Temp Pulse Resp BP Pulse Ox O2 Del Method 06/27/22 14:06 98.7 F 86 16 127/70 94 Room Air Anesthesia: Monitored Mental Status: Awake Pain Control: Satisfactory Nausea/Vomiting: None Hydration: Adequate Anesthesia-Related Issues: No Anes. Related Issues
[2022-06-27 15:15] VITALS: BP 152/71; PULSE 77; RESP 16; O2SAT 93
[2022-06-27 15:30] VITALS: BP 143/74; PULSE 94; RESP 16; TEMP 36.6; O2SAT 93
[2022-06-27 15:45] VITALS: BP 142/78; PULSE 89; RESP 16; TEMP 36.6; O2SAT 93
== END 2022-06-27 15:56 | disposition home or self-care (01) ==
PROVIDERS: PCP Family Medicine Geriatric Medicine; Visit Provider Internal Medicine Gastroenterology
PROC: (CPT 43249; principal; 2022-06-27 15:00)
DX: K22.2 Esophageal obstruction (principal); R13.10 Dysphagia, unspecified; K21.9 Gastro-esophageal reflux disease without esophagitis; D64.9 Anemia, unspecified; F41.1 Generalized anxiety disorder; I82.401 Acute embolism and thrombosis of unspecified deep veins of right lower extremity; M54.9 Dorsalgia, unspecified; I67.9 Cerebrovascular disease, unspecified; J44.9 Chronic obstructive pulmonary disease, unspecified; J96.10 Chronic respiratory failure, unspecified whether with hypoxia or hypercapnia; Z87.891 Personal history of nicotine dependence; Z79.899 Other long term (current) drug therapy; Z66 Do not resuscitate; Z88.8 Allergy status to other drugs, medicaments and biological substances; K59.00 Constipation, unspecified; Z79.01 Long term (current) use of anticoagulants; Z79.51 Long term (current) use of inhaled steroids
CPT/HCPCS: 43249; C1726

== ENCOUNTER 2022-10-14 14:52 | Outpatient (AMB) | payer OTHER, MEDICAID, SELFPAY ==
--- NOTE | 2022-10-14 15:05 | MHC.OFFVIS ---
Intake Vital Signs 10/14/22 15:06 Height 5 ft 9 in Weight 141 lb 5 oz BMI 20.9 BP 121/60 Blood Pressure Location Lt brachial Position Sitting Pulse 89 Intake Visit Reasons: s/P EGD with dilation;Dr. Lerma Intake Note: Amparo presents in the office as a follow up EGD. CC: Severe acid reflux, pains in the chest. She is having burning and having issues for a month with eating. Foods are getting stuck in the throat and she has to take her pills with apple sauce but now she still feels them sitting in her chest and takes a long time to digest. Mineral Surveyor Required: No Allergies ceftriaxone [CEFTRIAXONE] Allergy (Unknown, Verified 10/14/22 15:07) UNKNOWN monosodium glutamate [MSG] Allergy (Unknown, Verified 10/14/22 15:07) UNKNOWN morphine [MORPHINE] Allergy (Unknown, Verified 10/14/22 15:07) UNKNOWN HPI s/P EGD with dilation;Dr. Lerma HPI Details 67 yr old f, with frailty and chronic hip issues and immobility, being seen for f/u? RECAP ?originally seen at [facility] issues with dysphagia, unkown etiology, prior dilation, also failure to thrive ? has g tube placed for feeding ? had been doing good but last 2 months increased dysphagia to solids, has to vomit back out, had been good for 9 months or so ? no abdo pain ? feels gtube gets clogeed easily and feels needs changed ? also asking about getting lower dentures to help chew ? no diarrhea or constipation ? chronic hand contractures. ? she had egd x 2 with dilation-- 11-14 mm balloon ? then further EGD w dilation 03/2019--balloon 15-17 mm with linear distal esophageal tear (Ba swallow before this wiht distal esophagus narrowing) ? PA called worried about d/c around G tube, had been treated with ABX ? EGD 05/2020-- erosive esophagitis, balloon dilation done 16.5 with tear noted EGD 01/2022--- 12--->13.5 mm balloon dilation INTERIM: She was last dilated 07/16 Step baca balloon dilation from 15-16.5 with small linear tears and heme noted at GEJ. The balloon was also stretched to 15 mm at UES with resistance felt she had some improvement with dilation but feels she needs another procedure to stretch further denies abdominal pain no nausea or vomiting ?? ? EXAM: GENERAL: The patient is relaxed, alert VITAL SIGNS:see workflow HEENT: Nonicteric sclerae, PERRLA, EOMI. Oropharynx clear. Moist mucous membranes. Conjunctivae appear well perfused. No thyroid mass. CHEST: Chest wall is nontender. HEART: Regular rate and rhythm without murmurs. LUNGS: Clear to auscultation bilaterally. ABDOMEN: Soft, positive bowel sounds, nontender, no organomegaly.no flank tenderness- SKIN: No rash, no excessive bruising, petechiae, or purpura. NEUROLOGIC: Cranial nerves II-XII intact without motor/sensory deficit. extremities: contractures of hands psych--normal affect, not depressed Assessments ? 1. Esophageal dysphagia - prior stricture s/p dilation with good effect previously--needs re dilation ? PLAN: 1/ repeat EGD with dilation, hold xarelto for 48 hrs before procedure---will book for 2 procedures x 4 weeks apart so we can dilate more effectively 2/ change PPI to nexium 40 mg bid PFSH Medical History Anemia Anxiety Asthma Back pain Bacteremia Cellulitis Cerebrovascular disease CHF (congestive heart failure) Chronic respiratory failure Constipation Contracture of hand COPD (chronic obstructive pulmonary disease) COVID-19 vaccine series completed DVT (deep venous thrombosis) Dysphagia Gastritis Gastrojejunostomy tube dislodgement GERD (gastroesophageal reflux disease) History of pseudoachalasia of esophagus HLD (hyperlipidemia) Hypothyroid Impaired mobility Major depressive disorder Neuropathy [employer]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 Osteoarthritis Peripheral vascular disease Pneumothorax Psychological disorder Respiratory failure with hypoxia Scoliosis Sepsis Tachycardia 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 Surgical History History of esophagogastroduodenoscopy (EGD) History of inguinal hernia repair History of total right hip replacement Hx of colonoscopy Social History Housing Other:: [facility] Are you a primary day care teacher to a significant other at home: No Do you presently have visiting nurse or other home services: Yes (as above noted) Patient Tobacco Use Status: Former Tobacco user Quit Date: 1991 Tobacco use type: Cigarette Cigarette Packs Per Day: 1 Cigarettes Per Day: 20.0 Advance Directives Date on File: 06/09/20 Physical Exam Vital Signs: Last Vital Signs Pulse 89 10/14/22 15:06 BP 121/60 10/14/22 15:06 BMI result Body Mass Index 20.9 Assessment & Plan Assessment & Plan (1) Dysphagia: Code(s): R13.10 - Dysphagia, unspecified Coding Level of Care Code Est Pt Level 3 (14327) Diagnoses Dysphagia R13.10
[2022-10-14 15:06] VITALS: BP 121/60; PULSE 89; BMI 20.9
== END 2022-10-14 15:51 | disposition home or self-care (01) ==
PROVIDERS: PCP Family Medicine Geriatric Medicine; Visit Provider Internal Medicine Gastroenterology
DX: R13.10 Dysphagia, unspecified (principal)
CPT/HCPCS: 99213

== ENCOUNTER → 2022-10-14 14:52 | Outpatient (BNVA) | payer OTHER, MEDICAID, SELFPAY | PROVIDERS: PCP Family Medicine Geriatric Medicine; Visit Provider Internal Medicine Gastroenterology | DX: R13.14 Dysphagia, pharyngoesophageal phase (principal) | CPT/HCPCS: 99212 ==

== ENCOUNTER 2022-12-03 13:12 | Day surgery (SDC) | payer OTHER, MEDICAID, SELFPAY ==
[2022-11-28 11:20] VITALS: BMI 20.8
--- NOTE | 2022-11-29 11:02 | HO.ANESPROP2 ---
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 Constipation Anxiety COVID-19 vaccine series completed half-way resident Gastrojejunostomy tube dislodgement Impaired mobility Osteoarthritis Back pain Hypothyroid DVT (deep venous thrombosis) Anemia History of pseudoachalasia of esophagus GERD (gastroesophageal reflux disease) Neuropathy Psychological disorder Cerebrovascular disease Chronic respiratory failure COPD (chronic obstructive pulmonary disease) Asthma HLD (hyperlipidemia) Dysphagia Family History Family history of problems with anesthesia: No Surgical History Surgical History History of inguinal hernia repair History of total right hip replacement Hx of colonoscopy History of esophagogastroduodenoscopy (EGD) History of Problems with Anesthesia: No Social History Social History Housing Other:: [phone] ([address]) Are you a primary primary health care nurse to a significant other at home: No Do you presently have visiting nurse or other home services: Yes (as above noted) Patient Tobacco Use Status: Former Tobacco user Quit Date: 1991 Tobacco use type: Cigarette Cigarette Packs Per Day: 1 Cigarettes Per Day: 20.0 Use of substances other than those prescribed or required for medical reasons: No Have you been hit, kicked, punched, or otherwise hurt by someone within the past year? If so, by whom?: No Are you DNR?: No Advance Directives: Yes (MOLST & HCP (signs own consents)) Advance Directives Information Provided: Yes Advance Directives on File: Yes Advance Directives Date on File: 06/09/20 Recently lost weight without trying: No Eating poorly because of decreased appetite: No Nutrition Risks: No Nutritional Risk Meds Allergies Allergy/AdvReac Type Severity Reaction Status Date / Time ceftriaxone [CEFTRIAXONE] Allergy Unknown UNKNOWN Verified 10/14/22 15:07 monosodium glutamate [MSG] Allergy Unknown UNKNOWN Verified 10/14/22 15:07 morphine [MORPHINE] Allergy Unknown UNKNOWN Verified 10/14/22 15:07 Home Medications Medication Instructions Recorded Confirmed Last Taken Type divalproex 125 mg capsule,delayed 250 mg PO BEDTIME 06/08/20 11/28/22 01/22/21 05:00 History release sprinkle duloxetine 30 mg capsule,delayed 1 cap PO DAILY 06/08/20 11/28/22 06/08/20 History release hydromorphone 2 mg tablet 2 mg PO Q6H PRN Pain 06/08/20 11/28/22 06/27/22 11:30 History ipratropium 20 mcg-albuterol 100 1 puff inhalation Q4H PRN 06/08/20 11/28/22 Unknown History mcg/actuation mist for inhalation Shortness Of Breath (Combivent Respimat) ondansetron HCl 4 mg tablet 4 mg PO Q6H PRN Nausea And Vomiting 06/08/20 11/28/22 Unknown History rivaroxaban 10 mg tablet (Xarelto) 1 tab PO DAILY 06/08/20 11/28/22 06/25/22 History fluticasone furoate 200 1 ea inhalation DAILY 09/17/21 11/28/22 Unknown History mcg-vilanterol 25 mcg/dose inhalation powder (Breo Ellipta) acetaminophen 325 mg tablet 650 mg PO Q4H PRN Pain 02/07/22 11/28/22 Unknown History albuterol sulfate 90 mcg/actuation 1 inh inhalation QID PRN Shortness 02/07/22 11/28/22 Unknown History aerosol inhaler (ProAir HFA) Of Breath Or Wheezing benzonatate 100 mg capsule 100 mg PO TID PRN Cough 02/07/22 11/28/22 Unknown History bisacodyl 10 mg rectal suppository 10 mg UT DAILY PRN Constipation 02/07/22 11/28/22 Unknown History calcium carbonate 600 mg-vitamin 1 tab PO BID 02/07/22 11/28/22 Unknown History D3 5 mcg (200 unit) tablet (Calcium 600 + D(3)) carboxymethylcellulose sodium 2 drp ophthalmic (eye) BID 02/07/22 11/28/22 Unknown History dextromethorphan-guaifenesin 10 10 ml PO Q4H PRN Cough 02/07/22 11/28/22 Unknown History mg-100 mg/5 mL oral liquid levothyroxine 75 mcg tablet 1 tab PO DAILY 02/07/22 11/28/22 Unknown History polyethylene glycol 3350 17 17 g PO DAILY PRN Constipation 02/07/22 11/28/22 Unknown History gram/dose oral powder atorvastatin 40 mg tablet (Lipitor) 40 mg PO BEDTIME 04/26/22 11/28/22 Unknown History magnesium hydroxide 400 mg/5 mL 30 ml PO DAILY PRN Constipation 04/26/22 11/28/22 Unknown History oral suspension (Milk of Magnesia) sennosides 8.6 mg capsule (senna) 8.6 mg PO BID 04/26/22 11/28/22 Unknown History guaifenesin 600 mg tablet, 600 mg PO BID 06/17/22 11/28/22 Unknown History extended release 12 hr sodium chloride 0.65 % nasal spray 2 spray intranasal QID PRN Dry 06/17/22 11/28/22 Unknown History aerosol (Saline Nasal) Nasal Passages esomeprazole magnesium 40 mg 40 mg PO BID 11/28/22 11/28/22 Unknown History capsule,delayed release gabapentin 100 mg capsule 100 mg PO BEDTIME 11/28/22 11/28/22 Unknown History Exam Exam Date and Time: November 29, 2022 1102 Pertinent Lab Results Pertinent Lab Results: 05/2022 from outside facility WBC 9.0 Hgb 9.3 L Hct 30.9 L Plt 257 Na 140 K 3.5 Cl 104 Co2 30 Bun 12 Creat 0.56 Narrative Narrative: CXR 04/2022 No acute process Assessment and Plan Assessment Anesthesia Assessment: Chart Reviewed Final Anesthetic Review Family History of Problems with Anesthesia: No History of Problems with Anesthesia: No Documented by User: Araseli oCtton MD 12/03/22 13:50 [facility] Past Medical History Medical History Sepsis Peripheral vascular disease Bacteremia Cellulitis CHF (congestive heart failure) Respiratory failure with hypoxia Scoliosis Pneumothorax Contracture of hand Tachycardia Gastritis Major depressive disorder 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 Constipation Anxiety COVID-19 vaccine series completed half-way resident Gastrojejunostomy tube dislodgement Impaired mobility Osteoarthritis Back pain Hypothyroid DVT (deep venous thrombosis) Anemia History of pseudoachalasia of esophagus GERD (gastroesophageal reflux disease) Neuropathy Psychological disorder Cerebrovascular disease Chronic respiratory failure COPD (chronic obstructive pulmonary disease) Asthma HLD (hyperlipidemia) Dysphagia Surgical History Surgical History History of inguinal hernia repair History of total right hip replacement Hx of colonoscopy History of esophagogastroduodenoscopy (EGD) Social History Social History Housing Other:: [phone] ([address]) Are you a primary primary health care nurse to a significant other at home: No Do you presently have visiting nurse or other home services: Yes (as above noted) Patient Tobacco Use Status: Former Tobacco user Quit Date: 1991 Tobacco use type: Cigarette Cigarette Packs Per Day: 1 Cigarettes Per Day: 20.0 Use of substances other than those prescribed or required for medical reasons: No Have you been hit, kicked, punched, or otherwise hurt by someone within the past year? If so, by whom?: No Are you DNR?: No Advance Directives: Yes (MOLST & HCP (signs own consents)) Advance Directives Information Provided: Yes Advance Directives on File: Yes Advance Directives Date on File: 06/09/20 Recently lost weight without trying: No Eating poorly because of decreased appetite: No Nutrition Risks: No Nutritional Risk Meds Allergies Allergy/AdvReac Type Severity Reaction Status Date / Time ceftriaxone [CEFTRIAXONE] Allergy Unknown UNKNOWN Verified 10/14/22 15:07 monosodium glutamate [MSG] Allergy Unknown UNKNOWN Verified 10/14/22 15:07 morphine [MORPHINE] Allergy Unknown UNKNOWN Verified 10/14/22 15:07 Home Medications Medication Instructions Recorded Confirmed Last Taken Type divalproex 125 mg capsule,delayed 250 mg PO BEDTIME 06/08/20 11/28/22 01/22/21 05:00 History release sprinkle duloxetine 30 mg capsule,delayed 1 cap PO DAILY 06/08/20 11/28/22 06/08/20 History release hydromorphone 2 mg tablet 2 mg PO Q6H PRN Pain 06/08/20 11/28/22 06/27/22 11:30 History ipratropium 20 mcg-albuterol 100 1 puff inhalation Q4H PRN 06/08/20 11/28/22 Unknown History mcg/actuation mist for inhalation Shortness Of Breath (Combivent Respimat) ondansetron HCl 4 mg tablet 4 mg PO Q6H PRN Nausea And Vomiting 06/08/20 11/28/22 Unknown History rivaroxaban 10 mg tablet (Xarelto) 1 tab PO DAILY 06/08/20 11/28/22 06/25/22 History fluticasone furoate 200 1 ea inhalation DAILY 09/17/21 11/28/22 Unknown History mcg-vilanterol 25 mcg/dose inhalation powder (Breo Ellipta) acetaminophen 325 mg tablet 650 mg PO Q4H PRN Pain 02/07/22 11/28/22 Unknown History albuterol sulfate 90 mcg/actuation 1 inh inhalation QID PRN Shortness 02/07/22 11/28/22 Unknown History aerosol inhaler (ProAir HFA) Of Breath Or Wheezing benzonatate 100 mg capsule 100 mg PO TID PRN Cough 02/07/22 11/28/22 Unknown History bisacodyl 10 mg rectal suppository 10 mg UT DAILY PRN Constipation 02/07/22 11/28/22 Unknown History calcium carbonate 600 mg-vitamin 1 tab PO BID 02/07/22 11/28/22 Unknown History D3 5 mcg (200 unit) tablet (Calcium 600 + D(3)) carboxymethylcellulose sodium 2 drp ophthalmic (eye) BID 02/07/22 11/28/22 Unknown History dextromethorphan-guaifenesin 10 10 ml PO Q4H PRN Cough 02/07/22 11/28/22 Unknown History mg-100 mg/5 mL oral liquid levothyroxine 75 mcg tablet 1 tab PO DAILY 02/07/22 11/28/22 Unknown History polyethylene glycol 3350 17 17 g PO DAILY PRN Constipation 02/07/22 11/28/22 Unknown History gram/dose oral powder atorvastatin 40 mg tablet (Lipitor) 40 mg PO BEDTIME 04/26/22 11/28/22 Unknown History magnesium hydroxide 400 mg/5 mL 30 ml PO DAILY PRN Constipation 04/26/22 11/28/22 Unknown History oral suspension (Milk of Magnesia) sennosides 8.6 mg capsule (senna) 8.6 mg PO BID 04/26/22 11/28/22 Unknown History guaifenesin 600 mg tablet, 600 mg PO BID 06/17/22 11/28/22 Unknown History extended release 12 hr sodium chloride 0.65 % nasal spray 2 spray intranasal QID PRN Dry 06/17/22 11/28/22 Unknown History aerosol (Saline Nasal) Nasal Passages esomeprazole magnesium 40 mg 40 mg PO BID 11/28/22 11/28/22 Unknown History capsule,delayed release gabapentin 100 mg capsule 100 mg PO BEDTIME 11/28/22 11/28/22 Unknown History Exam Airway Mallampati Class: II TM Dist: >3cm Neck ROM: Limited Heart: rrr Lungs: cta Assessment and Plan Assessment Anesthesia Assessment: Anesthesia Plan Discussed Final Anesthetic Review NPO: Yes ASA Class: III Final Preanesthetic Review: No Changes in Pt Med Stat, Meds/Allgs Chart Reviewed, Consent Obtained/Reviewed and Anes Risks/Benef Reviewed Patient Risk: Intermediate Procedure Risk: Intermediate Anesthetic Plan Anesthetic Plan: MAC: Disposition: Standard PACU, Extended PACU, Inp. Admit - Standard Bed, Inp. Admit - IMC and Inp. Admit - ICU
--- NOTE | 2022-12-03 13:07 | MHC.SHP ---
Pre-Procedural Eval Section A Date of Service: 12/03/22 Section B Chief Complaint: Dysphagia, unspecified Relevant Family History (Specify if Yes): No Relevant Social History: None Present Medications: see Short Stay Collaborative assessment Medical History: Significant History (Anemia Anxiety Asthma Back pain Bacteremia Cellulitis Cerebrovascular disease CHF (congestive heart failure) Chronic respiratory failure Constipation Contracture of hand COPD (chronic obstructive pulmonary disease) COVID-19 vaccine series completed DVT (deep venous thrombosis) Dysphagia Gastritis Ga) History of Previous Operations: Relevant previous surgery/procedure and date(s) (History of esophagogastroduodenoscopy (EGD) History of inguinal hernia repair History of total right hip replacement Hx of colonoscopy) Allergies: Allergies Allergy/AdvReac Type Severity Reaction Status Date / Time ceftriaxone [CEFTRIAXONE] Allergy Unknown UNKNOWN Verified 10/14/22 15:07 monosodium glutamate [MSG] Allergy Unknown UNKNOWN Verified 10/14/22 15:07 morphine [MORPHINE] Allergy Unknown UNKNOWN Verified 10/14/22 15:07 Review of Systems Sugical H&P ROS: Negative: Constitution, Cardiovascular, Respiratory, Neurological, Psychiatric, Hem-Onc, Allergic/Immunologic, Gastrointestinal, Genitourinary, Musculoskeletal, Integumentary, Endocrine and Eyes/Ears/Nose/Throat Exam Surgical H&P Exam: Normal: HEENT, Normal: Heart, Normal: Lungs, Normal: Abdomen, Normal: Skin and Normal: Neurological and Significant Findings: Extremities Exam Comment: GENERAL: The patient is relaxed, alert VITAL SIGNS:see workflow HEENT: Nonicteric sclerae, PERRLA, EOMI. Oropharynx clear. Moist mucous membranes. Conjunctivae appear well perfused. No thyroid mass. CHEST: Chest wall is nontender. HEART: Regular rate and rhythm without murmurs. LUNGS: Clear to auscultation bilaterally. ABDOMEN: Soft, positive bowel sounds, nontender, no organomegaly.no flank tenderness- SKIN: No rash, no excessive bruising, petechiae, or purpura. NEUROLOGIC: Cranial nerves II-XII intact without motor/sensory deficit. extremities: contractures of hands psych--normal affect, not depressed Plan Diagnosis/Plan: Unchanged I have reviewed the history and physical and performed a pertinent physical examination on my patient. No changes have occurred unless specified. Time Spent With Patient Time: Total time managing care of this patient today ____ minutes.
[2022-12-03 13:24] VITALS: BP 136/70; PULSE 91; RESP 16; TEMP 37.6; O2SAT 94
--- NOTE | 2022-12-03 14:05 | W.PM.OPN ---
Operative Note Operative Note Date of Service: 12/03/22 Narrative: Procedure Description: EGD Indication: dysphagia Anesthesia: MAC FLEXIBLE TRANSORAL UPPER GASTROINTESTINAL ENDOSCOPY UPPER ENDOSCOPY Consent: Indications for the procedure and potential complications of bleeding, perforation, reaction to medications and missed diagnosis were discussed with the patient and informed consent was obtained. Instrument: Olympus GIF H 190 J mid size upper endoscope Monitoring: Vital signs and clinical assessment, continuous EKG monitoring, Pulse oximetry, Carbon Dioxide monitoring and blood pressure monitoring were done throughout the procedure. Procedure: The patient was placed in the left lateral decubitis position and pre-procedure medications were administered and a bite block was placed. The endoscope was inserted into the mouth and advanced under direct vision to the third part of duodenum. A careful inspection was made as the upper endoscope was withdrawn including a retroflexed examination of the proximal stomach; Findings and interventions are described below. Findings Larynx: normal Esophagus: GE junction at 40 cm.. Step baca balloon dilation from 15-17 mm with small linear tears and heme noted at GEJ. The balloon was also stretched to 16.5 mm at UES with resistance felt Stomach: Mild gastric erythema. Grade 2 flap valve on retroflexed examination of the cardia. Previously noted submucosal swelling in fundus seen and looked stable. Duodenum: normal Intervention: balloon dilation Impression and Post Procedure Diagnosis: Endoscopy Findings: esophageal stricture s/p dilation Plan: Continue present medications i.e PPI restart anti coagulation tomorrow evening can allow clears today and advance diet as tolerated tomorrow repeat EGD for dilation prn
[2022-12-03 14:29] VITALS: BP 114/70; PULSE 120; RESP 18; TEMP 36.3; O2SAT 98
[2022-12-03 14:44] VITALS: BP 134/76; PULSE 91; RESP 18; O2SAT 98
[2022-12-03 15:00] VITALS: BP 141/65; PULSE 98; RESP 18; TEMP 36.4; O2SAT 95
== END 2022-12-03 15:14 | disposition home or self-care (01) ==
PROVIDERS: PCP Family Medicine Geriatric Medicine; Visit Provider Internal Medicine Gastroenterology
PROC: (CPT 43249; principal; 2022-12-03 14:30)
DX: R13.10 Dysphagia, unspecified (principal); K22.2 Esophageal obstruction; D64.9 Anemia, unspecified; J44.9 Chronic obstructive pulmonary disease, unspecified; J96.10 Chronic respiratory failure, unspecified whether with hypoxia or hypercapnia; I50.9 Heart failure, unspecified; I67.9 Cerebrovascular disease, unspecified; I82.401 Acute embolism and thrombosis of unspecified deep veins of right lower extremity; F41.1 Generalized anxiety disorder; Z79.01 Long term (current) use of anticoagulants; Z79.899 Other long term (current) drug therapy; Z88.1 Allergy status to other antibiotic agents; Z88.5 Allergy status to narcotic agent; Z66 Do not resuscitate; Z98.890 Other specified postprocedural states; Z87.891 Personal history of nicotine dependence
CPT/HCPCS: 43249; C1726; J1100; J2250; J3010

== ENCOUNTER → 2022-12-03 13:12 | Outpatient (BNV) | payer OTHER, MEDICAID, SELFPAY | PROVIDERS: PCP Family Medicine Geriatric Medicine; Visit Provider Internal Medicine Gastroenterology | DX: R13.10 Dysphagia, unspecified (principal); K22.2 Esophageal obstruction | CPT/HCPCS: 43249 ==

== ENCOUNTER 2022-12-31 07:19 | Day surgery (SDC) | payer OTHER, MEDICAID, SELFPAY ==
[2022-12-27 16:28] VITALS: BMI 20.9
--- NOTE | 2022-12-30 10:23 | HO.ANESPROP2 ---
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 Constipation Anxiety COVID-19 vaccine series completed [facility] resident Gastrojejunostomy tube dislodgement Impaired mobility Osteoarthritis Back pain Hypothyroid DVT (deep venous thrombosis) Anemia History of pseudoachalasia of esophagus GERD (gastroesophageal reflux disease) Neuropathy Psychological disorder Cerebrovascular disease Chronic respiratory failure COPD (chronic obstructive pulmonary disease) Asthma HLD (hyperlipidemia) Dysphagia Family History Family history of problems with anesthesia: No Surgical History Surgical History History of inguinal hernia repair History of total right hip replacement Hx of colonoscopy History of esophagogastroduodenoscopy (EGD) History of Problems with Anesthesia: No Social History Social History Housing Other:: [phone] ([address]) Are you a primary family member caretaker to a significant other at home: No Do you presently have visiting nurse or other home services: Yes (as above noted) Patient Tobacco Use Status: Former Tobacco user Quit Date: 1991 Tobacco use type: Cigarette Cigarette Packs Per Day: 1 Cigarettes Per Day: 20.0 Have you been hit, kicked, punched, or otherwise hurt by someone within the past year? If so, by whom?: No Are you DNR?: No Advance Directives: No Advance Directives Information Provided: Yes Advance Directives Date on File: 06/09/20 Recently lost weight without trying: Yes How much weight loss: 2-13 pounds Eating poorly because of decreased appetite: Yes Nutrition screen score: 4 Patient : No Meds Allergies Allergy/AdvReac Type Severity Reaction Status Date / Time ceftriaxone [CEFTRIAXONE] Allergy Unknown UNKNOWN Verified 10/14/22 15:07 monosodium glutamate [MSG] Allergy Unknown UNKNOWN Verified 10/14/22 15:07 morphine [MORPHINE] Allergy Unknown UNKNOWN Verified 10/14/22 15:07 Home Medications Medication Instructions Recorded Confirmed Last Taken Type divalproex 125 mg capsule,delayed 250 mg PO BEDTIME 06/08/20 11/28/22 01/22/21 05:00 History release sprinkle duloxetine 30 mg capsule,delayed 1 cap PO DAILY 06/08/20 11/28/22 06/08/20 History release hydromorphone 2 mg tablet 2 mg PO Q6H PRN Pain 06/08/20 11/28/22 06/27/22 11:30 History ipratropium 20 mcg-albuterol 100 1 puff inhalation Q4H PRN 06/08/20 11/28/22 Unknown History mcg/actuation mist for inhalation Shortness Of Breath (Combivent Respimat) ondansetron HCl 4 mg tablet 4 mg PO Q6H PRN Nausea And Vomiting 06/08/20 11/28/22 Unknown History rivaroxaban 10 mg tablet (Xarelto) 1 tab PO DAILY 06/08/20 11/28/22 06/25/22 History fluticasone furoate 200 1 ea inhalation DAILY 09/17/21 11/28/22 Unknown History mcg-vilanterol 25 mcg/dose inhalation powder (Breo Ellipta) acetaminophen 325 mg tablet 650 mg PO Q4H PRN Pain 02/07/22 11/28/22 Unknown History albuterol sulfate 90 mcg/actuation 1 inh inhalation QID PRN Shortness 02/07/22 11/28/22 Unknown History aerosol inhaler (ProAir HFA) Of Breath Or Wheezing benzonatate 100 mg capsule 100 mg PO TID PRN Cough 02/07/22 11/28/22 Unknown History bisacodyl 10 mg rectal suppository 10 mg HI DAILY PRN Constipation 02/07/22 11/28/22 Unknown History calcium carbonate 600 mg-vitamin 1 tab PO BID 02/07/22 11/28/22 Unknown History D3 5 mcg (200 unit) tablet (Calcium 600 + D(3)) carboxymethylcellulose sodium 2 drp ophthalmic (eye) BID 02/07/22 11/28/22 Unknown History dextromethorphan-guaifenesin 10 10 ml PO Q4H PRN Cough 02/07/22 11/28/22 Unknown History mg-100 mg/5 mL oral liquid levothyroxine 75 mcg tablet 1 tab PO DAILY 02/07/22 11/28/22 Unknown History polyethylene glycol 3350 17 17 g PO DAILY PRN Constipation 02/07/22 11/28/22 Unknown History gram/dose oral powder atorvastatin 40 mg tablet (Lipitor) 40 mg PO BEDTIME 04/26/22 11/28/22 Unknown History magnesium hydroxide 400 mg/5 mL 30 ml PO DAILY PRN Constipation 04/26/22 11/28/22 Unknown History oral suspension (Milk of Magnesia) sennosides 8.6 mg capsule (senna) 8.6 mg PO BID 04/26/22 11/28/22 Unknown History guaifenesin 600 mg tablet, 600 mg PO BID 06/17/22 11/28/22 Unknown History extended release 12 hr sodium chloride 0.65 % nasal spray 2 spray intranasal QID PRN Dry 06/17/22 11/28/22 Unknown History aerosol (Saline Nasal) Nasal Passages esomeprazole magnesium 40 mg 40 mg PO BID 11/28/22 11/28/22 Unknown History capsule,delayed release gabapentin 100 mg capsule 100 mg PO BEDTIME 11/28/22 11/28/22 Unknown History Exam Exam Date and Time: December 30, 2022 1023 Height,Weight and Vital Signs: Height 5 ft 9 in Weight 64.098 kg Pertinent Lab Results Pertinent Lab Results: 05/2022 from outside facility WBC 9.0 Hgb 9.3 L Hct 30.9 L Plt 257 Na 140 K 3.5 Cl 104 Co2 30 Bun 12 Creat 0.56 Narrative Narrative: CXR 04/2022 No acute process Assessment and Plan Assessment Anesthesia Assessment: Chart Reviewed Final Anesthetic Review Family History of Problems with Anesthesia: No History of Problems with Anesthesia: No Documented by User: Carla Carter MD 12/31/22 08:58 HPI - Anesthesia Eval Consult details Narrative: 67yo F for Upper Endoscopy with Balloon Dilatation s/p same 11/2022 with TIVA 02 dependant xarelto for DVT chronic opioids PMFSH Active Problems Active Problems: All Active Problems (Updated 12/31/22 @ 08:30 by Carla Carter MD) Dysphagia (Acute) Past Medical History Medical History Sepsis Peripheral vascular disease Bacteremia Cellulitis CHF (congestive heart failure) Respiratory failure with hypoxia Scoliosis Pneumothorax Contracture of hand Tachycardia Gastritis Major depressive disorder 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 Constipation Anxiety COVID-19 vaccine series completed [facility] Gastrojejunostomy tube dislodgement Impaired mobility Osteoarthritis Back pain Hypothyroid DVT (deep venous thrombosis) Anemia History of pseudoachalasia of esophagus GERD (gastroesophageal reflux disease) Neuropathy Psychological disorder Cerebrovascular disease Chronic respiratory failure COPD (chronic obstructive pulmonary disease) Asthma HLD (hyperlipidemia) Dysphagia Surgical History Surgical History History of inguinal hernia repair History of total right hip replacement Hx of colonoscopy History of esophagogastroduodenoscopy (EGD) Social History Social History Housing Other:: [phone] ([address]) Are you a primary family member caretaker to a significant other at home: No Do you presently have visiting nurse or other home services: Yes (as above noted) Patient Tobacco Use Status: Former Tobacco user Quit Date: 1991 Tobacco use type: Cigarette Cigarette Packs Per Day: 1 Cigarettes Per Day: 20.0 Have you been hit, kicked, punched, or otherwise hurt by someone within the past year? If so, by whom?: No Are you DNR?: No Advance Directives: No Advance Directives Information Provided: Yes Advance Directives Date on File: 06/09/20 Recently lost weight without trying: Yes How much weight loss: 2-13 pounds Eating poorly because of decreased appetite: Yes Nutrition screen score: 4 Patient : No Meds Allergies Allergy/AdvReac Type Severity Reaction Status Date / Time ceftriaxone [CEFTRIAXONE] Allergy Unknown UNKNOWN Verified 10/14/22 15:07 monosodium glutamate [MSG] Allergy Unknown UNKNOWN Verified 10/14/22 15:07 morphine [MORPHINE] Allergy Unknown UNKNOWN Verified 10/14/22 15:07 Home Medications Medication Instructions Recorded Confirmed Last Taken Type divalproex 125 mg capsule,delayed 250 mg PO BEDTIME 06/08/20 11/28/22 01/22/21 05:00 History release sprinkle duloxetine 30 mg capsule,delayed 1 cap PO DAILY 06/08/20 11/28/22 06/08/20 History release hydromorphone 2 mg tablet 2 mg PO Q6H PRN Pain 06/08/20 11/28/22 06/27/22 11:30 History ipratropium 20 mcg-albuterol 100 1 puff inhalation Q4H PRN 06/08/20 11/28/22 Unknown History mcg/actuation mist for inhalation Shortness Of Breath (CombBluePoint Energyt Respimat) ondansetron HCl 4 mg tablet 4 mg PO Q6H PRN Nausea And Vomiting 06/08/20 11/28/22 Unknown History rivaroxaban 10 mg tablet (Xarelto) 1 tab PO DAILY 06/08/20 11/28/22 06/25/22 History fluticasone furoate 200 1 ea inhalation DAILY 09/17/21 11/28/22 Unknown History mcg-vilanterol 25 mcg/dose inhalation powder (Breo Ellipta) acetaminophen 325 mg tablet 650 mg PO Q4H PRN Pain 02/07/22 11/28/22 Unknown History albuterol sulfate 90 mcg/actuation 1 inh inhalation QID PRN Shortness 02/07/22 11/28/22 Unknown History aerosol inhaler (ProAir HFA) Of Breath Or Wheezing benzonatate 100 mg capsule 100 mg PO TID PRN Cough 02/07/22 11/28/22 Unknown History bisacodyl 10 mg rectal suppository 10 mg HI DAILY PRN Constipation 02/07/22 11/28/22 Unknown History calcium carbonate 600 mg-vitamin 1 tab PO BID 02/07/22 11/28/22 Unknown History D3 5 mcg (200 unit) tablet (Calcium 600 + D(3)) carboxymethylcellulose sodium 2 drp ophthalmic (eye) BID 02/07/22 11/28/22 Unknown History dextromethorphan-guaifenesin 10 10 ml PO Q4H PRN Cough 02/07/22 11/28/22 Unknown History mg-100 mg/5 mL oral liquid levothyroxine 75 mcg tablet 1 tab PO DAILY 02/07/22 11/28/22 Unknown History polyethylene glycol 3350 17 17 g PO DAILY PRN Constipation 02/07/22 11/28/22 Unknown History gram/dose oral powder atorvastatin 40 mg tablet (Lipitor) 40 mg PO BEDTIME 04/26/22 11/28/22 Unknown History magnesium hydroxide 400 mg/5 mL 30 ml PO DAILY PRN Constipation 04/26/22 11/28/22 Unknown History oral suspension (Milk of Magnesia) sennosides 8.6 mg capsule (senna) 8.6 mg PO BID 04/26/22 11/28/22 Unknown History guaifenesin 600 mg tablet, 600 mg PO BID 06/17/22 11/28/22 Unknown History extended release 12 hr sodium chloride 0.65 % nasal spray 2 spray intranasal QID PRN Dry 06/17/22 11/28/22 Unknown History aerosol (Saline Nasal) Nasal Passages esomeprazole magnesium 40 mg 40 mg PO BID 11/28/22 11/28/22 Unknown History capsule,delayed release gabapentin 100 mg capsule 100 mg PO BEDTIME 11/28/22 11/28/22 Unknown History Exam Height,Weight and Vital Signs: Height 5 ft 9 in Weight 64.098 kg Vital Signs Temp Pulse Resp BP Pulse Ox O2 Del Method 12/31/22 08:25 97.3 F 87 18 110/67 98 Room Air Pertinent Lab Results Pertinent Lab Results: 05/2022 from outside facility WBC 9.0 Hgb 9.3 L Hct 30.9 L Plt 257 Na 140 K 3.5 Cl 104 Co2 30 Bun 12 Creat 0.56 Airway Mallampati Class: II TM Dist: >3cm Neck ROM: Full Denture: Upper Loose/Missing/Broken Teeth: Yes (No teeth bottom) Heart: RRR Lungs: CTAB Assessment and Plan Assessment Anesthesia Assessment: Anesthesia Plan Discussed Final Anesthetic Review NPO: Yes ASA Class: III Final Preanesthetic Review: No Changes in Pt Med Stat, Meds/Allgs Chart Reviewed, Consent Obtained/Reviewed and Anes Risks/Benef Reviewed Patient Risk: Intermediate Procedure Risk: Low Assessment/Block/Sedation in SS: Assess/Block/Sedation-SS Anesthetic Plan Anesthetic Plan: MAC: Disposition: Standard PACU
[2022-12-31] VITALS (7 sets, daily range): BP systolic 102–116; BP diastolic 58–67; PULSE 87–122; RESP 12–18; TEMP 36.3–36.9; O2SAT 93–98
--- NOTE | 2022-12-31 07:58 | P.HPSUR_ITS ---
Pre-Procedural Eval Section A Date of Service: 12/31/22 Section B Chief Complaint: Dysphagia, unspecified,screening Relevant Family History (Specify if Yes): No Relevant Social History: None Present Medications: see Short Stay Collaborative assessment Medical History: Significant History (Anemia Anxiety Asthma Back pain Bacteremia Cellulitis Cerebrovascular disease CHF (congestive heart failure) Chronic respiratory failure Constipation Contracture of hand COPD (chronic obstructive pulmonary disease) COVID-19 vaccine series completed DVT (deep venous thrombosis) Dysphagia Gastritis Ga) History of Previous Operations: Relevant previous surgery/procedure and date(s) Allergies: Allergies Allergy/AdvReac Type Severity Reaction Status Date / Time ceftriaxone [CEFTRIAXONE] Allergy Unknown UNKNOWN Verified 10/14/22 15:07 monosodium glutamate [MSG] Allergy Unknown UNKNOWN Verified 10/14/22 15:07 morphine [MORPHINE] Allergy Unknown UNKNOWN Verified 10/14/22 15:07 Review of Systems Sugical H&P ROS: Negative: Constitution, Cardiovascular, Respiratory, N eurological, Psychiatric, Hem-Onc, Allergic/Immunologic, Gastrointestinal, Genitourinary, Musculoskeletal, Integumentary, Endocrine and Eyes/Ears/Nose/Throat Exam Surgical H&P Exam: Normal: HEENT, Normal: Heart, Normal: Lungs, Normal: Abdomen, Normal: Skin and Normal: Neurological and Significant Findings: Extremities (contractures of hands ) Plan Diagnosis/Plan: Unchanged I have reviewed the history and physical and performed a pertinent physical examination on my patient. No changes have occurred unless specified. Time Spent With Patient Time: Total time managing care of this patient today ____ minutes.
--- NOTE | 2022-12-31 08:37 | W.PM.OPN ---
Operative Note Operative Note Date of Service: 12/31/22 Narrative: Procedure Description: EGD Indication: dysphagia Anesthesia: MAC FLEXIBLE TRANSORAL UPPER GASTROINTESTINAL ENDOSCOPY UPPER ENDOSCOPY Consent: Indications for the procedure and potential complications of bleeding, perforation, reaction to medications and missed diagnosis were discussed with the patient and informed consent was obtained. Instrument: Olympus GIF H 190 J mid size upper endoscope Monitoring: Vital signs and clinical assessment, continuous EKG monitoring, Pulse oximetry, Carbon Dioxide monitoring and blood pressure monitoring were done throughout the procedure. Procedure: The patient was placed in the left lateral decubitis position and pre-procedure medications were administered and a bite block was placed. The endoscope was inserted into the mouth and advanced under direct vision to the third part of duodenum. A careful inspection was made as the upper endoscope was withdrawn including a retroflexed examination of the proximal stomach; Findings and interventions are described below. Findings: Larynx: normal Esophagus: GE junction at 40 cm.. Savory dilation using wire performed with 15 mm bougie, with superficial tear seen at UES and LES. Stomach: Mild gastric erythema. Grade 2 flap valve on retroflexed examination of the cardia. Previously noted submucosal swelling in fundus seen and looked stable. Few fundic gland polyps noted Duodenum: normal Intervention: savary guide wire bougie dilation Impression and Post Procedure Diagnosis: Endoscopy Findings: esophageal stricture s/p dilation Plan: Continue present medications i.e PPI restart anti coagulation tomorrow evening can allow clears today and advance diet as tolerated tomorrow repeat EGD for dilation prn can use magic mouthwash
[2022-12-31] MEDS: Mag&Al/Sim/Diphenhyd/Lidocaine 10 ML ORAL.SUSP PO (09:43)
[2022-12-31] MEDS: Acetaminophen 325 MG TABLET 975 MG PO (09:43)
--- NOTE | 2022-12-31 11:43 | PC.NURSE ---
patient escorted/discharged with [facility] at 11:45
== END 2022-12-31 12:10 | disposition home or self-care (01) ==
PROVIDERS: PCP Family Medicine Geriatric Medicine; Visit Provider Internal Medicine Gastroenterology
PROC: (CPT 43248; principal; 2022-12-31 09:00)
DX: K22.2 Esophageal obstruction (principal); K31.7 Polyp of stomach and duodenum; R13.10 Dysphagia, unspecified; K21.9 Gastro-esophageal reflux disease without esophagitis; D64.9 Anemia, unspecified; J45.909 Unspecified asthma, uncomplicated; E78.5 Hyperlipidemia, unspecified; Z86.718 Personal history of other venous thrombosis and embolism; I11.0 Hypertensive heart disease with heart failure; I50.9 Heart failure, unspecified; J96.10 Chronic respiratory failure, unspecified whether with hypoxia or hypercapnia; Z87.891 Personal history of nicotine dependence; Z79.01 Long term (current) use of anticoagulants; Z79.899 Other long term (current) drug therapy
CPT/HCPCS: 43248; C1769

== ENCOUNTER → 2022-12-31 07:19 | Outpatient (BNV) | payer OTHER, MEDICAID, SELFPAY | PROVIDERS: PCP Family Medicine Geriatric Medicine; Visit Provider Internal Medicine Gastroenterology | DX: R13.10 Dysphagia, unspecified (principal); K31.7 Polyp of stomach and duodenum | CPT/HCPCS: 43248 ==

== ENCOUNTER 2023-01-20 13:17 | Outpatient (AMB) | payer OTHER, MEDICAID, SELFPAY ==
--- NOTE | 2023-01-20 13:21 | A.OFFVIS_ITS ---
Intake Intake Visit Reasons: 3 month follow up Intake Note: Amparo presents in the office as a 3 month follow up. CC: She states that she is not having any concerns today and states that she is doing pretty good. Swallowing has been very good since last dilation. [employer] Level Five Required: No Allergies ceftriaxone [CEFTRIAXONE] Allergy (Unknown, Verified 01/20/23 13:25) UNKNOWN monosodium glutamate [MSG] Allergy (Unknown, Verified 01/20/23 13:25) UNKNOWN morphine [MORPHINE] Allergy (Unknown, Verified 01/20/23 13:25) UNKNOWN HPI 3 month follow up HPI Details RECAP ?originally seen at [facility] issues with dysphagia, unkown etiology, prior dilation, also failure to thrive ? has g tube placed for feeding ? had been doing good but last 2 months increased dysphagia to solids, has to vomit back out, had been good for 9 months or so ? no abdo pain ? feels gtube gets clogeed easily and feels needs changed ? also asking about getting lower dentures to help chew ? no diarrhea or constipation ? chronic hand contractures. ? she had egd x 2 with dilation-- 11-14 mm balloon ? then further EGD w dilation 03/2019--balloon 15-17 mm with linear distal esophageal tear (Ba swallow before this wiht distal esophagus narrowing) ? PA called worried about d/c around G tube, had been treated with ABX ? EGD 05/2020-- erosive esophagitis, balloon dilation done 16.5 with tear noted EGD 01/2022--- 12--->13.5 mm balloon dilation EGD 01/16-- savary dilation 15 mm with small tears seen INTERIM: she feels v well after last stretch denies abdominal pain no nausea or vomiting ate her thanksgiving lunch with relish ?? ? EXAM: GENERAL: The patient is relaxed, alert VITAL SIGNS:see workflow HEENT: Nonicteric sclerae, PERRLA, EOMI. Oropharynx clear. Moist mucous membranes. Conjunctivae appear well perfused. No thyroid mass. CHEST: Chest wall is nontender. HEART: Regular rate and rhythm without murmurs. LUNGS: Clear to auscultation bilaterally. ABDOMEN: Soft, positive bowel sounds, nontender, no organomegaly.no flank tenderness- SKIN: No rash, no excessive bruising, petechiae, or purpura. NEUROLOGIC: Cranial nerves II-XII intact without motor/sensory deficit. extremities: contractures of hands psych--normal affect, not depressed Assessments ? 1. Esophageal dysphagia - prior strictur e s/p dilation with good effect using savary ? 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 Constipation Anxiety COVID-19 vaccine series completed [facility] living resident Gastrojejunostomy tube dislodgement Impaired mobility Osteoarthritis Back pain Hypothyroid DVT (deep venous thrombosis) Anemia History of pseudoachalasia of esophagus GERD (gastroesophageal reflux disease) Neuropathy Psychological disorder Cerebrovascular disease Chronic respiratory failure COPD (chronic obstructive pulmonary disease) Asthma HLD (hyperlipidemia) Dysphagia Surgical History (Updated 01/20/23 @ 13:24 by SAMARA Leach) History of inguinal hernia repair History of total right hip replacement Hx of colonoscopy History of esophagogastroduodenoscopy (EGD) Housing Other:: [phone] ([address]) Are you a primary lawn care technician to a significant other at home: No Do you presently have visiting nurse or other home services: Yes (as above noted) Patient Tobacco Use Status: Former Tobacco user Quit Date: 1991 Tobacco use type: Cigarette Cigarette Packs Per Day: 1 Cigarettes Per Day: 20.0 Advance Directives Date on File: 06/09/20 Assessment & Plan Assessment & Plan (1) Dysphagia: Code(s): R13.10 - Dysphagia, unspecified Coding Level of Care Code Est Pt Level 3 (41136) Diagnoses Dysphagia R13.10
== END 2023-01-20 13:48 | disposition home or self-care (01) ==
PROVIDERS: PCP Family Medicine Geriatric Medicine; Visit Provider Internal Medicine Gastroenterology
DX: R13.10 Dysphagia, unspecified (principal)
CPT/HCPCS: 99213

== ENCOUNTER → 2023-01-20 13:17 | Outpatient (BNVA) | payer OTHER, MEDICAID, SELFPAY | PROVIDERS: PCP Family Medicine Geriatric Medicine; Visit Provider Internal Medicine Gastroenterology | DX: R13.10 Dysphagia, unspecified (principal) | CPT/HCPCS: 99212 ==

== ENCOUNTER 2023-06-06 11:08 | Outpatient (AMB) | payer OTHER, MEDICAID, SELFPAY ==
--- NOTE | 2023-06-06 11:09 | A.OFFVIS_ITS ---
Intake Intake Visit Reasons: 6 month follow up Intake Note: Amparo presents in the office as a 6 month follow up. CC: She was supposed to have surgery and wants to know if she will still need it. Wrong information given at the halfway. Allergies ceftriaxone [CEFTRIAXONE] Allergy (Unknown, Verified 06/06/23 11:11) UNKNOWN monosodium glutamate [MSG] Allergy (Unknown, Verified 06/06/23 11:11) UNKNOWN morphine [MORPHINE] Allergy (Unknown, Verified 06/06/23 11:11) UNKNOWN HPI 6 month follow up HPI Details 68 yr old f here for f/u RECAP originally seen at [facility] issues with dysphagia, unkown etiology, prior dilation, also failure to thrive has g tube placed for feeding had been doing good but last 2 months increased dysphagia to solids, has to vomit back out, had been good for 9 months or so no abdo pain feels gtube gets clogeed easily and feels needs changed also asking about getting lower dentures to help chew no diarrhea or constipation chronic hand contractures. she had egd x 2 with dilation-- 11-14 mm balloon then further EGD w dilation 03/2019--balloon 15-17 mm with linear distal esophageal tear (Ba swallow before this wiht distal esophagus narrowing) PA called worried about d/c around G tube, had been treated with ABX EGD 05/2020-- erosive esophagitis, balloon dilation done 16.5 with tear noted EGD 01/2022--- 12--->13.5 mm balloon dilation EGD 01/16-- savary dilation 15 mm with small tears seen INTERIM: she felt recurrence of her dysphagia now, denies abdominal pain no nausea or vomiting she is managing soft foods last stretch really helped her EXAM: GENERAL: The patient is relaxed, alert VITAL SIGNS:see workflow HEENT: Nonicteric sclerae, PERRLA, EOMI. Oropharynx clear. Moist mucous membranes. Conjunctivae appear well perfused. No thyroid mass. CHEST: Chest wall is nontender. HEART: Regular rate and rhythm without murmurs. LUNGS: Clear to auscultation bilaterally. ABDOMEN: Soft, positive bowel sounds, nontender, no organomegaly.no flank tenderness- SKIN: No rash, no excessive bruising, petechiae, or purpura. NEUROLOGIC: Cranial nerves II-XII intact without motor/sensory deficit. extremities: contractures of hands psych--normal affect, not depressed Assessments 1. 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 Constipation Anxiety COVID-19 vaccine series completed custodial resident Gastrojejunostomy tube dislodgement Impaired mobility Osteoarthritis Back pain Hypothyroid DVT (deep venous thrombosis) Anemia History of pseudoachalasia of esophagus GERD (gastroesophageal reflux disease) Neuropathy Psychological disorder Cerebrovascular disease Chronic respiratory failure COPD (chronic obstructive pulmonary disease) Asthma HLD (hyperlipidemia) Dysphagia Surgical History History of inguinal hernia repair History of total right hip replacement Hx of colonoscopy History of esophagogastroduodenoscopy (EGD) Social History Housing Other:: [phone] ([address]) Are you a primary after school caregiver to a significant other at home: No Do you presently have visiting nurse or other home services: Yes (as above noted) Patient Tobacco Use Status: Former Tobacco user Quit Date: 1991 Tobacco use type: Cigarette Cigarette Packs Per Day: 1 Cigarettes Per Day: 20.0 Advance Directives Date on File: 06/09/20 Assessment & Plan Assessment & Plan (1) Dysphagia: Code(s): R13.10 - Dysphagia, unspecified Plan: 1. Esophageal dysphagia - prior stricture s/p dilation with good effect using savary PLAN: 1/ repeat EGD with dilation, myself or one of my colleagues--HOLD eliquis 2 d before procedure 2/ cont nexium 40 mg bid--take multivitamin and Vit D supplement 1000 units daily Coding Level of Care Code Est Pt Level 3 (67863) Diagnoses Dysphagia R13.10
== END 2023-06-06 12:38 | disposition home or self-care (01) ==
LOC: HO.HGI 11:08
PROVIDERS: PCP Family Medicine Geriatric Medicine; Visit Provider Internal Medicine Gastroenterology
DX: R13.10 Dysphagia, unspecified (principal)
CPT/HCPCS: 99213

== ENCOUNTER → 2023-06-06 11:08 | Outpatient (BNVA) | payer OTHER, MEDICAID, SELFPAY | PROVIDERS: PCP Family Medicine Geriatric Medicine; Visit Provider Internal Medicine Gastroenterology | DX: R13.10 Dysphagia, unspecified (principal) | CPT/HCPCS: 99212 ==

== ENCOUNTER 2023-06-10 12:01 | Day surgery (SDC) | payer OTHER, MEDICAID, SELFPAY ==
--- NOTE | 2023-05-27 11:00 | HO.ANESPROP2 ---
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 Constipation Anxiety COVID-19 vaccine series completed detention resident Gastrojejunostomy tube dislodgement Impaired mobility Osteoarthritis Back pain Hypothyroid DVT (deep venous thrombosis) Anemia History of pseudoachalasia of esophagus GERD (gastroesophageal reflux disease) Neuropathy Psychological disorder Cerebrovascular disease Chronic respiratory failure COPD (chronic obstructive pulmonary disease) Asthma HLD (hyperlipidemia) Dysphagia Family History Family history of problems with anesthesia: No Surgical History Surgical History (Updated 01/20/23 @ 13:24 by SAMARA Leach) History of inguinal hernia repair History of total right hip replacement Hx of colonoscopy History of esophagogastroduodenoscopy (EGD) History of Problems with Anesthesia: No Social History Social History Housing Other:: [phone] ([address]) Are you a primary healthcare business analyst to a significant other at home: No Do you presently have visiting nurse or other home services: Yes (as above noted) Patient Tobacco Use Status: Former Tobacco user Quit Date: 1991 Tobacco use type: Cigarette Cigarette Packs Per Day: 1 Cigarettes Per Day: 20.0 Advance Directives Date on File: 06/09/20 Meds Allergies Allergy/AdvReac Type Severity Reaction Status Date / Time ceftriaxone [CEFTRIAXONE] Allergy Unknown UNKNOWN Verified 01/20/23 13:25 monosodium glutamate [MSG] Allergy Unknown UNKNOWN Verified 01/20/23 13:25 morphine [MORPHINE] Allergy Unknown UNKNOWN Verified 01/20/23 13:25 Home Medications Medication Instructions Recorded Confirmed Last Taken Type divalproex 125 mg capsule,delayed 250 mg PO BEDTIME 06/08/20 11/28/22 01/22/21 05:00 History release sprinkle duloxetine 30 mg capsule,delayed 1 cap PO DAILY 06/08/20 11/28/22 06/08/20 History release hydromorphone 2 mg tablet 2 mg PO Q6H PRN Pain 06/08/20 11/28/22 06/27/22 11:30 History ipratropium 20 mcg-albuterol 100 1 puff inhalation Q4H PRN 06/08/20 11/28/22 Unknown History mcg/actuation mist for inhalation Shortness Of Breath (Combivent Respimat) ondansetron HCl 4 mg tablet 4 mg PO Q6H PRN Nausea And Vomiting 06/08/20 11/28/22 Unknown History rivaroxaban 10 mg tablet (Xarelto) 1 tab PO DAILY 06/08/20 11/28/22 06/25/22 History acetaminophen 325 mg tablet 650 mg PO Q4H PRN Pain 02/07/22 11/28/22 Unknown History albuterol sulfate 90 mcg/actuation 1 inh inhalation QID PRN Shortness 02/07/22 11/28/22 Unknown History aerosol inhaler (ProAir HFA) Of Breath Or Wheezing bisacodyl 10 mg rectal suppository 10 mg PA DAILY PRN Constipation 02/07/22 11/28/22 Unknown History calcium carbonate 600 mg-vitamin 1 tab PO BID 02/07/22 11/28/22 Unknown History D3 5 mcg (200 unit) tablet (Calcium 600 + D(3)) carboxymethylcellulose sodium 2 drp ophthalmic (eye) BID 02/07/22 11/28/22 Unknown History levothyroxine 75 mcg tablet 1 tab PO DAILY 02/07/22 11/28/22 Unknown History polyethylene glycol 3350 17 17 g PO DAILY PRN Constipation 02/07/22 11/28/22 Unknown History gram/dose oral powder atorvastatin 40 mg tablet (Lipitor) 40 mg PO BEDTIME 04/26/22 11/28/22 Unknown History magnesium hydroxide 400 mg/5 mL 30 ml PO DAILY PRN Constipation 04/26/22 11/28/22 Unknown History oral suspension (Milk of Magnesia) sennosides 8.6 mg capsule (senna) 8.6 mg PO BID 04/26/22 11/28/22 Unknown History sodium chloride 0.65 % nasal spray 2 spray intranasal QID PRN Dry 06/17/22 11/28/22 Unknown History aerosol (Saline Nasal) Nasal Passages esomeprazole magnesium 40 mg 40 mg PO BID 11/28/22 11/28/22 Unknown History capsule,delayed release gabapentin 100 mg capsule 100 mg PO BEDTIME 11/28/22 11/28/22 Unknown History benzonatate 100 mg capsule 100 mg PO TID PRN Cough 01/20/23 Unknown History dextromethorphan-guaifenesin 10 10 ml PO Q4H PRN Cough 01/20/23 Unknown History mg-100 mg/5 mL oral liquid fluticasone furoate 200 1 ea inhalation DAILY PRN 01/20/23 Unknown History mcg-vilanterol 25 mcg/dose inhalation powder (Breo Ellipta) guaifenesin 600 mg tablet, 600 mg PO BID 01/20/23 Unknown History extended release 12 hr Assessment and Plan Assessment Anesthesia Assessment: Chart Reviewed Final Anesthetic Review Family History of Problems with Anesthesia: No History of Problems with Anesthesia: No
[2023-06-10 12:23] VITALS: BP 149/71; PULSE 80; RESP 16; TEMP 37.2; O2SAT 97; BMI 19.8
--- NOTE | 2023-06-10 12:38 | HO.ANESPROP2 ---
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 Constipation Anxiety COVID-19 vaccine series completed retirement resident Gastrojejunostomy tube dislodgement Impaired mobility Osteoarthritis Back pain Hypothyroid DVT (deep venous thrombosis) Anemia History of pseudoachalasia of esophagus GERD (gastroesophageal reflux disease) Neuropathy Psychological disorder Cerebrovascular disease Chronic respiratory failure COPD (chronic obstructive pulmonary disease) Asthma HLD (hyperlipidemia) Dysphagia Family History Family history of problems with anesthesia: No Surgical History Surgical History History of inguinal hernia repair History of total right hip replacement Hx of colonoscopy History of esophagogastroduodenoscopy (EGD) History of Problems with Anesthesia: No Social History Social History Housing Other:: [phone] ([address]) Are you a primary career services representative to a significant other at home: No Do you presently have visiting nurse or other home services: Yes (as above noted) Patient Tobacco Use Status: Former Tobacco user Quit Date: 1998 Tobacco use type: Cigarette Cigarette Packs Per Day: 1 Cigarettes Per Day: 20.0 Years Smoked: 10 Smoked in Last 30 Days: No Use of substances other than those prescribed or required for medical reasons: No Are you DNR?: No Advance Directives: No Advance Directives Information Provided: Yes Advance Directives Date on File: 06/09/20 Meds Allergies Allergy/AdvReac Type Severity Reaction Status Date / Time monosodium glutamate [MSG] Allergy Severe throat Verified 06/10/23 12:16 close up morphine [MORPHINE] Allergy Severe Seizure Verified 06/10/23 12:16 ceftriaxone [CEFTRIAXONE] Allergy Unknown UNKNOWN Verified 06/06/23 11:11 Active Medications: Current Medications Albuterol Sulfate (Albuterol Sulfate (0.083%) 2.5 Mg/3 Ml Vial.Neb) 2.5 mg INHALE ONCE PRN PRN Reason: Shortness of Breath/Wheezing Lactated Ringer's (Lr) 1,000 mls @ 50 mls/hr IVCONT .Q20H SIA Home Medications ?Medication ?Instructions ?Recorded ?Confirmed ?Last Taken ?Type divalproex 125 mg capsule,delayed 250 mg PO BEDTIME 06/08/20 06/10/23 01/22/21 05:00 History release sprinkle duloxetine 30 mg capsule,delayed 1 cap PO DAILY 06/08/20 06/10/23 06/08/20 History release hydromorphone 2 mg tablet 4 mg PO Q6H PRN Pain 06/08/20 06/10/23 06/10/23 History 2 mg ipratropium 20 mcg-albuterol 100 1 puff inhalation Q4H PRN 06/08/20 06/10/23 06/10/23 History mcg/actuation mist for inhalation Shortness Of Breath (Combivent Respimat) ondansetron HCl 4 mg tablet 4 mg PO Q6H PRN Nausea And Vomiting 06/08/20 06/10/23 Unknown History rivaroxaban 10 mg tablet (Xarelto) 1 tab PO DAILY 06/08/20 06/10/23 06/07/23 History acetaminophen 325 mg tablet 650 mg PO Q4H PRN Pain 02/07/22 06/10/23 Unknown History albuterol sulfate 90 mcg/actuation 1 inh inhalation QID PRN Shortness 02/07/22 06/10/23 Unknown History aerosol inhaler (ProAir HFA) Of Breath Or Wheezing bisacodyl 10 mg rectal suppository 10 mg NC DAILY PRN Constipation 02/07/22 06/10/23 Unknown History calcium carbonate 600 mg-vitamin 1 tab PO BID 02/07/22 06/10/23 Unknown History D3 5 mcg (200 unit) tablet (Calcium 600 + D(3)) carboxymethylcellulose sodium 2 drp ophthalmic (eye) BID 02/07/22 06/10/23 Unknown History levothyroxine 75 mcg tablet 1 tab PO DAILY 02/07/22 06/10/23 Unknown History polyethylene glycol 3350 17 17 g PO DAILY PRN Constipation 02/07/22 06/10/23 Unknown History gram/dose oral powder atorvastatin 40 mg tablet (Lipitor) 40 mg PO BEDTIME 04/26/22 06/10/23 Unknown History magnesium hydroxide 400 mg/5 mL 30 ml PO DAILY PRN Constipation 04/26/22 06/10/23 Unknown History oral suspension (Milk of Magnesia) sennosides 8.6 mg capsule (senna) 8.6 mg PO BID 04/26/22 06/10/23 Unknown History sodium chloride 0.65 % nasal spray 2 spray intranasal QID PRN Dry 06/17/22 06/10/23 Unknown History aerosol (Saline Nasal) Nasal Passages esomeprazole magnesium 40 mg 40 mg PO BID 11/28/22 06/10/23 Unknown History capsule,delayed release gabapentin 100 mg capsule 100 mg PO BEDTIME 11/28/22 06/10/23 Unknown History benzonatate 100 mg capsule 100 mg PO TID PRN Cough 01/20/23 06/10/23 Unknown History dextromethorphan-guaifenesin 10 10 ml PO Q4H PRN Cough 01/20/23 06/10/23 Unknown History mg-100 mg/5 mL oral liquid guaifenesin 600 mg tablet, 600 mg PO BID 01/20/23 06/10/23 Unknown History extended release 12 hr cholecalciferol (vitamin D3) 10 10 mcg PO DAILY 06/06/23 06/10/23 Unknown History mcg (400 unit) capsule ferrous sulfate 325 mg (65 mg 325 mg PO DAILY 06/06/23 06/10/23 Unknown History iron) tablet (Feosol) multivitamin 1 tab PO DAILY 06/06/23 06/10/23 Unknown History fluticasone furoate 200 1 ea inhalation DAILY 06/10/23 06/10/23 Unknown History mcg-vilanterol 25 mcg/dose inhalation powder (Breo Ellipta) Exam Height,Weight and Vital Signs: Height 5 ft 10 in Weight 62.596 kg Last Vital Signs Temp 99.0 F 06/10/23 12:23 Pulse 80 06/10/23 12:23 Resp 16 06/10/23 12:23 BP 149/71 H 06/10/23 12:23 Pulse Ox 97 06/10/23 12:23 O2 Del Method Room Air 06/10/23 12:23 Airway Mallampati Class: III TM Dist: >3cm Neck ROM: Limited Assessment and Plan Assessment Anesthesia Assessment: Anesthesia Plan Discussed and Chart Reviewed Final Anesthetic Review Family History of Problems with Anesthesia: No History of Problems with Anesthesia: No NPO: Yes ASA Class: III Final Preanesthetic Review: No Changes in Pt Med Stat, Meds/Allgs Chart Reviewed, Consent Obtained/Reviewed and Anes Risks/Benef Reviewed Patient Risk: Intermediate Procedure Risk: Low Anesthetic Plan Anesthetic Plan: TIVA Disposition: Standard PACU
--- NOTE | 2023-06-10 12:45 | MHC.SHP ---
Pre-Procedural Eval Section A - 24 Hr Update-Section A only Date of Service: 06/10/23 The patient is an INPATIENT: No The patient has been examined within 24 hours of the surgical procedure. The History & Physical has been completed within 30 days and I have reviewed it.: Yes Section B - Complete if H&P > 30 days Chief Complaint: Dysphagia, unspecified Allergies: Allergies Allergy/AdvReac Type Severity Reaction Status Date / Time monosodium glutamate [MSG] Allergy Severe throat Verified 06/10/23 12:16 close up morphine [MORPHINE] Allergy Severe Seizure Verified 06/10/23 12:16 ceftriaxone [CEFTRIAXONE] Allergy Unknown UNKNOWN Verified 06/06/23 11:11 Plan Diagnosis/Plan: Unchanged I have reviewed the history and physical and performed a pertinent physical examination on my patient. No changes have occurred unless specified. Time Spent With Patient Time: Total time managing care of this patient today ____ minutes.
--- NOTE | 2023-06-10 12:45 | W.PM.OPN ---
Operative Note Operative Note Date of Service: 06/10/23 Narrative: Procedure Description: EGD Indication: dysphagia Anesthesia: MAC FLEXIBLE TRANSORAL UPPER GASTROINTESTINAL ENDOSCOPY UPPER ENDOSCOPY Consent: Indications for the procedure and potential complications of bleeding, perforation, reaction to medications and missed diagnosis were discussed with the patient and informed consent was obtained. Instrument: Olympus GIF H 190 J mid size upper endoscope Monitoring: Vital signs and clinical assessment, continuous EKG monitoring, Pulse oximetry, Carbon Dioxide monitoring and blood pressure monitoring were done throughout the procedure. Procedure: The patient was placed in the left lateral decubitis position and pre-procedure medications were administered and a bite block was placed. The endoscope was inserted into the mouth and advanced under direct vision to the third part of duodenum. A careful inspection was made as the upper endoscope was withdrawn including a retroflexed examination of the proximal stomach; Findings and interventions are described below. Larynx: normal Esophagus: GE junction at 40 cm.. Savory dilation using wire performed with 16 mm bougie, with superficial tear seen at UES Stomach: Mild gastric erythema. Grade 2 flap valve on retroflexed examination of the cardia. Previously noted submucosal swelling in fundus seen and looked stable. Few fundic gland polyps noted Duodenum: normal Intervention: savary guide wire bougie dilation Impression and Post Procedure Diagnosis: Endoscopy Findings: esophageal stricture s/p dilation Plan: Continue present medications i.e PPI restart anti coagulation tomorrow evening can allow clears today and advance diet as tolerated tomorrow repeat EGD for dilation prn can use magic mouthwash
[2023-06-10] MEDS: Lactated Ringers 1,000 ML 50 ML IVCONT (12:49)
[2023-06-10 13:10] VITALS: BP 109/68; PULSE 94; RESP 18; TEMP 36.8; O2SAT 99
[2023-06-10 13:25] VITALS: BP 132/72; PULSE 78; RESP 18; TEMP 36.8; O2SAT 98
== END 2023-06-10 14:34 | disposition home or self-care (01) ==
PROVIDERS: PCP Family Medicine Geriatric Medicine; Visit Provider Internal Medicine Gastroenterology
PROC: (CPT 43248; principal; 2023-06-10 14:20)
DX: R13.10 Dysphagia, unspecified (principal); K31.7 Polyp of stomach and duodenum; J44.9 Chronic obstructive pulmonary disease, unspecified; Z86.718 Personal history of other venous thrombosis and embolism
CPT/HCPCS: 43248; C1769; J2704; J3010

== ENCOUNTER → 2023-06-10 12:01 | Outpatient (BNV) | payer OTHER, MEDICAID, SELFPAY | PROVIDERS: PCP Family Medicine Geriatric Medicine; Visit Provider Internal Medicine Gastroenterology | DX: R13.10 Dysphagia, unspecified (principal); K22.2 Esophageal obstruction | CPT/HCPCS: 43248 ==

== ENCOUNTER 2023-06-27 10:05 | Outpatient (AMB) | payer OTHER, MEDICAID, SELFPAY ==
--- NOTE | 2023-06-27 10:06 | MHC.OFFVIS ---
Vital Signs 06/27/23 10:07 Height 5 ft 10 in Weight 138 lb BMI 19.8 BP 128/60 Blood Pressure Location Lt brachial Position Sitting Pulse 91 Intake Visit Reasons: Follow up Intake Note: Amparo presents in the office as a follow up EGD w/ Dil CC: Is still having issues swallowing. 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: No Allergies monosodium glutamate [MSG] Allergy (Severe, Verified 06/27/23 10:08) throat close up morphine [MORPHINE] Allergy (Severe, Verified 06/27/23 10:08) Seizure ceftriaxone [CEFTRIAXONE] Allergy (Unknown, Verified 06/27/23 10:08) UNKNOWN HPI HPI Follow up: Details: 68 yr old f here for f/u RECAP originally seen [facility] issues with dysphagia, unkown etiology, prior dilation, also failure to thrive has g tube placed for feeding had been doing good but last 2 months increased dysphagia to solids, has to vomit back out, had been good for 9 months or so no abdo pain feels gtube gets clogeed easily and feels needs changed also asking about getting lower dentures to help chew no diarrhea or constipation chronic hand contractures. she had egd x 2 with dilation-- 11-14 mm balloon then further EGD w dilation 03/2019--balloon 15-17 mm with linear distal esophageal tear (Ba swallow before this wiht distal esophagus narrowing) PA called worried about d/c around G tube, had been treated with ABX EGD 05/2020-- erosive esophagitis, balloon dilation done 16.5 with tear noted EGD 01/2022--- 12--->13.5 mm balloon dilation EGD 01/16-- savary dilation 15 mm with small tears seen EGD: 06/10/23--savary dilation 16 mm INTERIM: She still has difficulty swallowing food and pills and getting stuck in mid chest area, also having reflux she did have sore throat for few days after the EGD denies abdominal pain no nausea or vomiting slightly wheezy today due to copd exacerbation she has been taking dilaudid for few years now--every day EXAM: GENERAL: The patient is relaxed, alert VITAL SIGNS:see workflow HEENT: Nonicteric sclerae, PERRLA, EOMI. Oropharynx clear. Moist mucous membranes. Conjunctivae appear well perfused. No thyroid mass. CHEST: Chest wall is nontender. HEART: Regular rate and rhythm without murmurs. LUNGS: Clear to auscultation bilaterally. ABDOMEN: Soft, positive bowel sounds, nontender, no organomegaly.no flank tenderness- SKIN: No rash, no excessive bruising, petechiae, or purpura. NEUROLOGIC: Cranial nerves II-XII intact without motor/sensory deficit. extremities: contractures of hands psych--normal affect, not depressed Assessments 1. Esophageal dysphagia - prior stricture s/p dilation with no real improvement in sx, also on dilaudid which can affect motility PLAN: 1/ repeat EGD with dilation, with savary 17 mm--HOLD eliquis 2 d before procedure 2/ cont nexium 40 mg bid--take multivitamin and Vit D supplement 1000 units daily --will add famotidine 40 mg at night as well as movantik see if helps her swallowing [facility] Medical History Sepsis Peripheral vascular disease Bacteremia Cellulitis CHF (congestive heart failure) Respiratory failure with hypoxia Scoliosis Pneumothorax Contracture of hand Tachycardia Gastritis Major depressive disorder 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 Constipation Anxiety COVID-19 vaccine series completed senior living resident Gastrojejunostomy tube dislodgement Impaired mobility Osteoarthritis Back pain Hypothyroid DVT (deep venous thrombosis) Anemia History of pseudoachalasia of esophagus GERD (gastroesophageal reflux disease) Neuropathy Psychological disorder Cerebrovascular disease Chronic respiratory failure COPD (chronic obstructive pulmonary disease) Asthma HLD (hyperlipidemia) Dysphagia Surgical History History of inguinal hernia repair History of total right hip replacement Hx of colonoscopy History of esophagogastroduodenoscopy (EGD) Social History Housing Other:: [phone] ([address]) Are you a primary home day care provider to a significant other at home: No Do you presently have visiting nurse or other home services: Yes (as above noted) Patient Tobacco Use Status: Former Tobacco user Quit Date: 1998 Tobacco use type: Cigarette Cigarette Packs Per Day: 1 Cigarettes Per Day: 20.0 Years Smoked: 10 Advance Directives Date on File: 06/09/20 Physical Exam Vital Signs: Last Vital Signs Pulse 91 06/27/23 10:07 BP 128/60 06/27/23 10:07 BMI result Body Mass Index 19.8 Assessment & Plan Assessment & Plan (1) Dysphagia: Code(s): R13.10 - Dysphagia, unspecified Category: Medical Plan: see above Coding Level of Care Code Est Pt Level 4 (97015) Diagnoses Dysphagia R13.10
[2023-06-27 10:07] VITALS: BP 128/60; PULSE 91; BMI 19.8
== END 2023-06-27 11:00 | disposition home or self-care (01) ==
LOC: HO.HGI 10:05
PROVIDERS: PCP Family Medicine Geriatric Medicine; Visit Provider Internal Medicine Gastroenterology
DX: R13.10 Dysphagia, unspecified (principal)
CPT/HCPCS: 99214

== ENCOUNTER → 2023-06-27 10:05 | Outpatient (BNVA) | payer OTHER, MEDICAID, SELFPAY | PROVIDERS: PCP Family Medicine Geriatric Medicine; Visit Provider Internal Medicine Gastroenterology | DX: R13.10 Dysphagia, unspecified (principal); Z98.890 Other specified postprocedural states | CPT/HCPCS: 99212 ==

== ENCOUNTER 2023-11-20 08:31 | Day surgery (SDC) | payer OTHER, MEDICAID, SELFPAY ==
--- NOTE | 2023-11-19 11:00 | P.CONAN_ITS ---
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 Constipation Anxiety COVID-19 vaccine series completed detention resident Gastrojejunostomy tube dislodgement Impaired mobility Osteoarthritis Back pain Hypothyroid DVT (deep venous thrombosis) Anemia History of pseudoachalasia of esophagus GERD (gastroesophageal reflux disease) Neuropathy Psychological disorder Cerebrovascular disease Chronic respiratory failure COPD (chronic obstructive pulmonary disease) Asthma HLD (hyperlipidemia) Dysphagia Family History Family history of problems with anesthesia: No Surgical History Surgical History History of inguinal hernia repair History of total right hip replacement Hx of colonoscopy History of esophagogastroduodenoscopy (EGD) (06/10/23) History of Problems with Anesthesia: No Social History Social History Housing Other:: [phone] ([address]) Are you a primary child daycare worker to a significant other at home: No Do you presently have visiting nurse or other home services: Yes (as above noted) Patient Tobacco Use Status: Never used Tobacco Tobacco use type: Cigarette Cigarette Packs Per Day: 1 Cigarettes Per Day: 20.0 Years Smoked: 10 Have you been hit, kicked, punched, or otherwise hurt by someone within the past year? If so, by whom?: No Are you DNR?: No Advance Directives: No Advance Directives Information Provided: Yes Advance Directives Date on File: 06/09/20 Meds Allergies Allergy/AdvReac Type Severity Reaction Status Date / Time monosodium glutamate [MSG] Allergy Severe throat Verified 06/27/23 10:08 close up morphine [MORPHINE] Allergy Severe Seizure Verified 06/27/23 10:08 ceftriaxone [CEFTRIAXONE] Allergy Unknown UNKNOWN Verified 06/27/23 10:08 Home Medications ?Medication ?Instructions ?Recorded ?Confirmed ?Last Taken ?Type divalproex 125 mg capsule,delayed 250 mg PO BEDTIME 06/08/20 06/10/23 11/19/23 History release sprinkle duloxetine 30 mg capsule,delayed 1 cap PO DAILY 06/08/20 06/10/23 11/20/23 History release hydromorphone 2 mg tablet 4 mg PO Q6H PRN Pain 06/08/20 06/10/23 11/20/23 History ipratropium 20 mcg-albuterol 100 1 puff inhalation Q4H PRN 06/08/20 06/10/23 06/10/23 History mcg/actuation mist for inhalation Shortness Of Breath (Combivent Respimat) ondansetron HCl 4 mg tablet 4 mg PO Q6H PRN Nausea And Vomiting 06/08/20 06/10/23 Unknown History rivaroxaban 10 mg tablet (Xarelto) 1 tab PO DAILY 06/08/20 06/10/23 11/17/23 History acetaminophen 325 mg tablet 650 mg PO Q4H PRN Pain 02/07/22 06/10/23 Unknown History albuterol sulfate 90 mcg/actuation 1 inh inhalation QID PRN Shortness 02/07/22 06/10/23 Unknown History aerosol inhaler (ProAir HFA) Of Breath Or Wheezing calcium carbonate 600 mg-vitamin 1 tab PO BID 02/07/22 06/10/23 Unknown History D3 5 mcg (200 unit) tablet (Calcium 600 + D(3)) carboxymethylcellulose sodium 2 drp ophthalmic (eye) BID 02/07/22 06/10/23 Unknown History levothyroxine 75 mcg tablet 1 tab PO DAILY 02/07/22 06/10/23 11/20/23 History atorvastatin 40 mg tablet (Lipitor) 40 mg PO BEDTIME 04/26/22 06/10/23 Unknown History magnesium hydroxide 400 mg/5 mL 30 ml PO DAILY PRN Constipation 04/26/22 06/10/23 Unknown History oral suspension (Milk of Magnesia) sennosides 8.6 mg capsule (senna) 8.6 mg PO BID 04/26/22 06/10/23 Unknown History sodium chloride 0.65 % nasal spray 2 spray intranasal QID PRN Dry 06/17/22 06/10/23 Unknown History aerosol (Saline Nasal) Nasal Passages esomeprazole magnesium 40 mg 40 mg PO BID 11/28/22 06/10/23 11/20/23 History capsule,delayed release gabapentin 100 mg capsule 100 mg PO BEDTIME 11/28/22 06/10/23 Unknown History benzonatate 100 mg capsule 100 mg PO TID PRN Cough 01/20/23 06/10/23 Unknown History dextromethorphan-guaifenesin 10 10 ml PO Q4H PRN Cough 01/20/23 06/10/23 Unknown History mg-100 mg/5 mL oral liquid guaifenesin 600 mg tablet, 600 mg PO BID 01/20/23 06/10/23 Unknown History extended release 12 hr cholecalciferol (vitamin D3) 10 10 mcg PO DAILY 06/06/23 06/10/23 Unknown History mcg (400 unit) capsule ferrous sulfate 325 mg (65 mg 325 mg PO DAILY 06/06/23 06/10/23 Unknown History iron) tablet (Feosol) multivitamin 1 tab PO DAILY 06/06/23 06/10/23 Unknown History fluticasone furoate 200 1 ea inhalation DAILY 06/10/23 06/10/23 Unknown History mcg-vilanterol 25 mcg/dose inhalation powder (Breo Ellipta) Assessment and Plan Assessment Anesthesia Assessment: Chart Reviewed Final Anesthetic Review Family History of Problems with Anesthesia: No History of Problems with Anesthesia: No Documented by User: Araseli Cotton MD 11/20/23 10:06 [facility] Past Medical History Medical History Sepsis Peripheral vascular disease Bacteremia Cellulitis CHF (congestive heart failure) Respiratory failure with hypoxia Scoliosis Pneumothorax Contracture of hand Tachycardia Gastritis Major depressive disorder 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 Constipation Anxiety COVID-19 vaccine series completed detention resident Gastrojejunostomy tube dislodgement Impaired mobility Osteoarthritis Back pain Hypothyroid DVT (deep venous thrombosis) Anemia History of pseudoachalasia of esophagus GERD (gastroesophageal reflux disease) Neuropathy Psychological disorder Cerebrovascular disease Chronic respiratory failure COPD (chronic obstructive pulmonary disease) Asthma HLD (hyperlipidemia) Dysphagia Surgical History Surgical History History of inguinal hernia repair History of total right hip replacement Hx of colonoscopy History of esophagogastroduodenoscopy (EGD) (06/10/23) Social History Social History Housing Other:: [phone] ([address]) Are you a primary child daycare worker to a significant other at home: No Do you presently have visiting nurse or other home services: Yes (as above noted) Patient Tobacco Use Status: Never used Tobacco Tobacco use type: Cigarette Cigarette Packs Per Day: 1 Cigarettes Per Day: 20.0 Years Smoked: 10 Have you been hit, kicked, punched, or otherwise hurt by someone within the past year? If so, by whom?: No Are you DNR?: No Advance Directives: No Advance Directives Information Provided: Yes Advance Directives Date on File: 06/09/20 Meds Allergies Allergy/AdvReac Type Severity Reaction Status Date / Time monosodium glutamate [MSG] Allergy Severe throat Verified 06/27/23 10:08 close up morphine [MORPHINE] Allergy Severe Seizure Verified 06/27/23 10:08 ceftriaxone [CEFTRIAXONE] Allergy Unknown UNKNOWN Verified 06/27/23 10:08 Home Medications ?Medication ?Instructions ?Recorded ?Confirmed ?Last Taken ?Type divalproex 125 mg capsule,delayed 250 mg PO BEDTIME 06/08/20 06/10/23 11/19/23 History release sprinkle duloxetine 30 mg capsule,delayed 1 cap PO DAILY 06/08/20 06/10/23 11/20/23 History release hydromorphone 2 mg tablet 4 mg PO Q6H PRN Pain 06/08/20 06/10/23 11/20/23 History ipratropium 20 mcg-albuterol 100 1 puff inhalation Q4H PRN 06/08/20 06/10/23 06/10/23 History mcg/actuation mist for inhalation Shortness Of Breath (Combivent Respimat) ondansetron HCl 4 mg tablet 4 mg PO Q6H PRN Nausea And Vomiting 06/08/20 06/10/23 Unknown History rivaroxaban 10 mg tablet (Xarelto) 1 tab PO DAILY 06/08/20 06/10/23 11/17/23 History acetaminophen 325 mg tablet 650 mg PO Q4H PRN Pain 02/07/22 06/10/23 Unknown History albuterol sulfate 90 mcg/actuation 1 inh inhalation QID PRN Shortness 02/07/22 06/10/23 Unknown History aerosol inhaler (ProAir HFA) Of Breath Or Wheezing calcium carbonate 600 mg-vitamin 1 tab PO BID 02/07/22 06/10/23 Unknown History D3 5 mcg (200 unit) tablet (Calcium 600 + D(3)) carboxymethylcellulose sodium 2 drp ophthalmic (eye) BID 02/07/22 06/10/23 Unknown History levothyroxine 75 mcg tablet 1 tab PO DAILY 02/07/22 06/10/23 11/20/23 History atorvastatin 40 mg tablet (Lipitor) 40 mg PO BEDTIME 04/26/22 06/10/23 Unknown History magnesium hydroxide 400 mg/5 mL 30 ml PO DAILY PRN Constipation 04/26/22 06/10/23 Unknown History oral suspension (Milk of Magnesia) sennosides 8.6 mg capsule (senna) 8.6 mg PO BID 04/26/22 06/10/23 Unknown History sodium chloride 0.65 % nasal spray 2 spray intranasal QID PRN Dry 06/17/22 06/10/23 Unknown History aerosol (Saline Nasal) Nasal Passages esomeprazole magnesium 40 mg 40 mg PO BID 11/28/22 06/10/23 11/20/23 History capsule,delayed release gabapentin 100 mg capsule 100 mg PO BEDTIME 11/28/22 06/10/23 Unknown History benzonatate 100 mg capsule 100 mg PO TID PRN Cough 01/20/23 06/10/23 Unknown History dextromethorphan-guaifenesin 10 10 ml PO Q4H PRN Cough 01/20/23 06/10/23 Unknown History mg-100 mg/5 mL oral liquid guaifenesin 600 mg tablet, 600 mg PO BID 01/20/23 06/10/23 Unknown History extended release 12 hr cholecalciferol (vitamin D3) 10 10 mcg PO DAILY 06/06/23 06/10/23 Unknown History mcg (400 unit) capsule ferrous sulfate 325 mg (65 mg 325 mg PO DAILY 06/06/23 06/10/23 Unknown History iron) tablet (Feosol) multivitamin 1 tab PO DAILY 06/06/23 06/10/23 Unknown History fluticasone furoate 200 1 ea inhalation DAILY 06/10/23 06/10/23 Unknown History mcg-vilanterol 25 mcg/dose inhalation powder (Breo Ellipta) Exam Airway Mallampati Class: II TM Dist: >3cm Neck ROM: Limited Heart: rrr Lungs: cta Assessment and Plan Assessment Anesthesia Assessment: Anesthesia Plan Discussed Final Anesthetic Review NPO: Yes ASA Class: III Final Preanesthetic Review: No Changes in Pt Med Stat, Meds/Allgs Chart Reviewed, Consent Obtained/Reviewed and Anes Risks/Benef Reviewed Patient Risk: Intermediate Procedure Risk: Low Anesthetic Plan Anesthetic Plan: MAC: Disposition: Standard PACU
[2023-11-20 09:03] VITALS: BP 112/60; PULSE 87; RESP 19; TEMP 36.1; O2SAT 96; BMI 21.0
[2023-11-20] MEDS: Lactated Ringers 1,000 ML 50 ML IVCONT (09:11)
--- NOTE | 2023-11-20 09:16 | PC.NURSE ---
at 5a-530 pt was given pills with less than1/[address] marcus aware may proceed
--- NOTE | 2023-11-20 09:37 | MHC.SHP ---
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 Constipation Anxiety ) History of Previous Operations: Relevant previous surgery/procedure and date(s) (History of inguinal hernia repair History of total right hip replacement Hx of colonoscopy History of esophagogastroduodenoscopy (EGD) (06/10/23)) Allergies: Allergies Allergy/AdvReac Type Severity Reaction Status Date / Time monosodium glutamate [MSG] Allergy Severe throat Verified 06/27/23 10:08 close up morphine [MORPHINE] Allergy Severe Seizure Verified 06/27/23 10:08 ceftriaxone [CEFTRIAXONE] Allergy Unknown UNKNOWN Verified 06/27/23 10:08 Review of Systems Sugical H&P ROS: Negative: Constitution, Cardiovascular, Respiratory, Neurological, Psychiatric, Hem-Onc, Allergic/Immunologic, Gastrointestinal, Genitourinary, Musculoskeletal, Integumentary, Endocrine and Eyes/Ears/Nose/Throat Exam Surgical H&P Exam: Normal: HEENT, Normal: Heart, Normal: Lungs, Normal: Extremities, Normal: Abdomen, Normal: Skin and Normal: Neurological Plan Diagnosis/Plan: Unchanged I have reviewed the history and physical and performed a pertinent physical examination on my patient. No changes have occurred unless specified. Time Spent With Patient Time: Total time managing care of this patient today ____ minutes.
--- NOTE | 2023-11-20 10:20 | W.PM.OPN ---
Operative Note Operative Note Date of Service: 11/20/23 Narrative: Procedure Description: EGD Indication: dysphagia Anesthesia: MAC FLEXIBLE TRANSORAL UPPER GASTROINTESTINAL ENDOSCOPY UPPER ENDOSCOPY Consent: Indications for the procedure and potential complications of bleeding, perforation, reaction to medications and missed diagnosis were discussed with the patient and informed consent was obtained. Instrument: Olympus GIF H 190 J mid size upper endoscope Monitoring: Vital signs and clinical assessment, continuous EKG monitoring, Pulse oximetry, Carbon Dioxide monitoring and blood pressure monitoring were done throughout the procedure. Procedure: The patient was placed in the left lateral decubitis position and pre-procedure medications were administered and a bite block was placed. The endoscope was inserted into the mouth and advanced under direct vision to the third part of duodenum. A careful inspection was made as the upper endoscope was withdrawn including a retroflexed examination of the proximal stomach; Findings and interventions are described below. Findings: Larynx: normal Esophagus: GE junction at 40 cm, and was tight. Scoep was passed and small tear with heme was noted. This was then dilated to 17 mm with balloon. the UES was also dilated to 17 mm, no tears noted Stomach: Mild gastric erythema. Grade 2 flap valve on retroflexed examination of the cardia. Previously noted submucosal swelling was not noted. Few fundic gland polyps noted Duodenum: normal, bx taken Intervention: cold biopsy and balloon dilation Impression and Post Procedure Diagnosis: Endoscopy Findings: esophageal stricture s/p dilation Plan: Continue present medications i.e PPI restart anti coagulation tomorrow evening can allow clears today and advance diet as tolerated tomorrow repeat EGD for dilation prn can use magic mouthwash prn for 1 week she said she had benefit from carafate, this can be restarted 1 g BID if needed
[2023-11-20 10:21] VITALS: BP 103/45; PULSE 96; RESP 16; TEMP 36.1; O2SAT 95
[2023-11-20 10:36] VITALS: BP 113/54; PULSE 81; RESP 16; O2SAT 95
== END 2023-11-20 11:07 | disposition home or self-care (01) ==
PROVIDERS: Visit Provider Internal Medicine Gastroenterology
PROC: (CPT 43249; principal; 2023-11-20 10:30)
DX: K29.80 Duodenitis without bleeding (principal); K31.7 Polyp of stomach and duodenum; K22.2 Esophageal obstruction; R13.10 Dysphagia, unspecified; E78.5 Hyperlipidemia, unspecified; J96.91 Respiratory failure, unspecified with hypoxia; E05.00 Thyrotoxicosis with diffuse goiter without thyrotoxic crisis or storm; I50.9 Heart failure, unspecified; Z79.02 Long term (current) use of antithrombotics/antiplatelets; Z79.899 Other long term (current) drug therapy
CPT/HCPCS: 43249; 43239; 88305; 88313; 88342; C1726; J2704; J3010

== ENCOUNTER → 2023-11-20 08:31 | Outpatient (BNV) | payer OTHER, MEDICAID, SELFPAY | PROVIDERS: Visit Provider Internal Medicine Gastroenterology | DX: R13.10 Dysphagia, unspecified (principal); K31.7 Polyp of stomach and duodenum | CPT/HCPCS: 43239; 43249 ==

== ENCOUNTER 2023-11-28 12:07 | Outpatient (AMB) | payer OTHER, MEDICAID, SELFPAY ==
--- NOTE | 2023-11-28 12:08 | A.OFFVIS_ITS ---
Vital Signs 11/28/23 12:10 Height 5 ft 9 in BP 104/48 L Blood Pressure Location Lt brachial Position Sitting Respiration 78 H Intake Visit Reasons: Follow up Intake Note: Amparo presents in the office as a follow up. Allergies monosodium glutamate [MSG] Allergy (Severe, Verified 11/28/23 12:10) throat close up morphine [MORPHINE] Allergy (Severe, Verified 11/28/23 12:10) Seizure ceftriaxone [CEFTRIAXONE] Allergy (Unknown, Verified 11/28/23 12:10) UNKNOWN HPI HPI Follow up: Details: 68 yr old f here for f/u RECAP originally seen at [facility] issues with dysphagia, unkown etiology, prior dilation, also failure to thrive has g tube placed for feeding had been doing good but last 2 months increased dysphagia to solids, has to vomit back out, had been good for 9 months or so no abdo pain feels gtube gets clogeed easily and feels needs changed also asking about getting lower dentures to help chew no diarrhea or constipation chronic hand contractures. she had egd x 2 with dilation-- 11-14 mm balloon then further EGD w dilation 03/2019--balloon 15-17 mm with linear distal esophageal tear (Ba swallow before this wiht distal esophagus narrowing) PA called worried about d/c around G tube, had been treated with ABX EGD 05/2020-- erosive esophagitis, balloon dilation done 16.5 with tear noted EGD 01/2022--- 12--->13.5 mm balloon dilation EGD 01/16-- savary dilation 15 mm with small tears seen EGD: 06/10/23--savary dilation 16 mm EGD: 10/2013- dialation of UES and LES to 17 mm with small tear seen INTERIM: she has no issues with dysphagia she has nausea with food, finds carafate helpful on chronic opaiates no abdo pain no constipation EXAM: GENERAL: The patient is relaxed, alert VITAL SIGNS:see workflow HEENT: Nonicteric sclerae, PERRLA, EOMI. Oropharynx clear. Moist mucous membranes. Conjunctivae appear well perfused. No thyroid mass. CHEST: Chest wall is nontender. HEART: Regular rate and rhythm without murmurs. LUNGS: Clear to auscultation bilaterally. ABDOMEN: Soft, positive bowel sounds, nontender, no organomegaly.no flank tenderness- SKIN: No rash, no excessive bruising, petechiae, or purpura. NEUROLOGIC: Cranial nerves II-XII intact without motor/sensory deficit. extremities: contractures of hands psych--normal affect, not depressed Assessments 1. 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 Constipation Anxiety COVID-19 vaccine series completed [facility] resident Gastrojejunostomy tube dislodgement Impaired mobility Osteoarthritis Back pain Hypothyroid DVT (deep venous thrombosis) Anemia History of pseudoachalasia of esophagus GERD (gastroesophageal reflux disease) Neuropathy Psychological disorder Cerebrovascular disease Chronic respiratory failure COPD (chronic obstructive pulmonary disease) Asthma HLD (hyperlipidemia) Dysphagia Surgical History History of inguinal hernia repair History of total right hip replacement Hx of colonoscopy History of esophagogastroduodenoscopy (EGD) (06/10/23) Social History Housing Other:: [phone] ([address]) Are you a primary assisted living care manager to a significant other at home: No Do you presently have visiting nurse or other home services: Yes (as above noted) Patient Tobacco Use Status: Never used Tobacco Tobacco use type: Cigarette Cigarette Packs Per Day: 1 Cigarettes Per Day: 20.0 Years Smoked: 10 Advance Directives Date on File: 06/09/20 Physical Exam Vital Signs: Last Vital Signs Resp 78 H 11/28/23 12:10 BP 104/48 L 11/28/23 12:10 Assessment & Plan Assessment & Plan (1) Dysphagia: Code(s): R13.10 - Dysphagia, unspecified Category: Medical Plan: see above Orders: Orders NM gastric emptying study Today R68.81 - Early satiety Coding Level of Care Code Est Pt Level 3 (15354) Diagnoses Dysphagia R13.10
[2023-11-28 12:10] VITALS: BP 104/48; RESP 78
== END 2023-11-28 12:37 | disposition home or self-care (01) ==
LOC: HO.HGI 12:07
PROVIDERS: Visit Provider Internal Medicine Gastroenterology
DX: R13.10 Dysphagia, unspecified (principal)
CPT/HCPCS: 99213

== ENCOUNTER → 2023-11-28 12:07 | Outpatient (BNVA) | payer OTHER, MEDICAID, SELFPAY | PROVIDERS: Visit Provider Internal Medicine Gastroenterology | DX: R13.10 Dysphagia, unspecified (principal); R68.81 Early satiety | CPT/HCPCS: 99212 ==

== ENCOUNTER 2023-12-09 10:10 | Outpatient (REF) | payer OTHER, MEDICAID, SELFPAY ==
--- NOTE | ~2023-12-09 | FL_ITS ---
EXAMINATION: FL BARIUM SWALLOW CLINICAL INFORMATION: Dysphagia COMPARISON: Barium swallow December 2018 TECHNIQUE: Fluoroscopic single contrast upper GI examination was performed utilizing standard techniques with thin barium. Numerous spot images were obtained. FINDINGS: Exam is considered extremely limited due to patient's inherent status and inability to tolerate positioning a full, comprehensive examination. Patient could not tolerate effervescent granules. This is a single contrast exam. Limited single contrast images of the esophagus demonstrate a patulous esophagus with a corkscrew appearance. No evidence of stricture, mass, or ulcerations identified. There is persistent to and fro motion of the barium column with nonpropulsive tertiary contractions noted throughout the esophagus. There is severe short segment narrowing of the GE junction with mild irregularity of the mucosa, although no heaped up margins or gross ulcerations (RF 1-1, image 69). This is most likely a benign stricture or jail achalasia. There is pulsion diverticulum just above the narrowing. No evidence of hiatus hernia identified. No significant gastroesophageal reflux was seen during the course of the examination and on reflux views. Single contrast images of the stomach are limited. No gross masses are present. Evaluation of the mucosa is limited due to inability to give air-contrast. Contrast freely passed into the gastric antrum and duodenal bulb without delay. Patient could not tolerate a barium tablet, which would have not passed the GE junction. Single contrast images of the duodenal bulb are limited but demonstrate no gross abnormality. The duodenal sweep has a normal appearance, course, and mucosal fold appearance. Proximal jejunum is not well imaged. FLUOROSCOPY TIME: 4 minutes 28 seconds DOSE AREA PRODUCT: 1584 uGy-m2 (microgray-meter squared) FL/FL barium swallow IMPRESSION: 1. Limited exam due to patient's limited ability to tolerate the exam. 2. Patulous esophagus with a corkscrew appearance and severely disorganized peristalsis, consistent with severe esophageal dysmotility. Distal small pulsion diverticulum. 3. Severe short segment narrowing of the GE junction, with minimal mucosal irregularity although no heaped up margins or ulceration, felt to most likely represent long-standing achalasia, or a benign stricture. Cannot definitively exclude an annular carcinoma in this region given the appearance. However with previous findings from 2019, the appearance is much more suggestive of chronic severe achalasia. Recommend correlation with EGD. 4. Extremely limited evaluation of the stomach due to inability to distend with effervescent granule gas. No obvious masses are present. This procedure was performed by Isaak Melendrez PA-C, and supervised by Dr. Romero Electronically signed by: Andrew Romero MD 12/12/2023 08:57 AM EDT
== END 2023-12-09 10:11 | disposition home or self-care (01) ==
LOC: HO.XRAY 10:10
PROVIDERS: Visit Provider Internal Medicine Gastroenterology
DX: R13.10 Dysphagia, unspecified (principal)
CPT/HCPCS: 74220

== ENCOUNTER → 2023-12-09 10:11 | Outpatient (BNV) | payer OTHER, MEDICAID, SELFPAY | PROVIDERS: Visit Provider Radiology Diagnostic Radiology | DX: R13.10 Dysphagia, unspecified (principal) | CPT/HCPCS: 74220 ==

== ENCOUNTER 2023-12-15 10:48 | Outpatient (AMB) | payer OTHER, MEDICAID, SELFPAY ==
--- NOTE | 2023-12-15 11:03 | AM.OFFVISNUR ---
Intake Visit Reasons: H PYLORI BREATH TEST Allergies monosodium glutamate [MSG] Allergy (Severe, Verified 11/28/23 12:10) throat close up morphine [MORPHINE] Allergy (Severe, Verified 11/28/23 12:10) Seizure ceftriaxone [CEFTRIAXONE] Allergy (Unknown, Verified 11/28/23 12:10) UNKNOWN Nursing Note Patient presents for collection of H Pylori breath test. Patient has been fasting for 1 hour (nothing to eat, drink, no chewing gum or smoking) has not taken any antacid medication for at least 2 weeks and has no allergies to artificial sweeteners.?? Assessment & Plan Assessment & Plan (1) Dysphagia: Code(s): R13.10 - Dysphagia, unspecified Category: Medical Plan Patient presents for collection of H Pylori breath test. Patient has been fasting for 1 hour (nothing to eat, drink, no chewing gum or smoking) has not taken any antacid medication for at least 2 weeks and has no allergies to artificial sweeteners.???This test checks for an overgrowth of bacteria in your stomach. We all have bacteria but some may have more than others. It is treatable. if the test comes back negative there is nothing else to do. If the test result is positive we will treat you with 2 antibiotics and a medication to decrease the acid in your stomach (PPI) for 2 weeks. Two weeks after you have completed the treatment we will retest you to make sure the overgrowth has resolved. Orders: Orders H Pylori Breath Test Today Patient Instructions: Process for specimen collection and reason for testing was explained to the patient. Specimen collection. Patient instructed to take a deep breath and then exhale into the blue bag, filling it up as much as possible. Patient instructed to drink a mixture of water and the artificial sweetener with a straw. A 15 minute wait period was observed. Patient instructed to take a deep breath and then exhale into the pink bag, filling it up as much as possible.??
== END 2023-12-15 11:17 | disposition home or self-care (01) ==
PROVIDERS: Visit Provider Internal Medicine Gastroenterology
DX: R13.10 Dysphagia, unspecified (principal)

== ENCOUNTER 2023-12-15 10:48 | Outpatient (REF) | payer OTHER, MEDICAID, SELFPAY ==
[2023-12-16 09:37] LABS: H Pylori Breath Test Negative (Negative)
== END 2023-12-15 10:49 | disposition home or self-care (01) ==
LOC: HO.LNP 10:48
PROVIDERS: Visit Provider Internal Medicine Gastroenterology
DX: R13.10 Dysphagia, unspecified (principal); Z11.0 Encounter for screening for intestinal infectious diseases
CPT/HCPCS: 83013; 99211

== ENCOUNTER → 2024-01-09 08:11 | Outpatient (REF) | payer OTHER, MEDICAID, SELFPAY ==
--- NOTE | ~2024-01-09 | NM_ITS ---
NM GASTRIC EMPTYING STUDY CLINICAL INFORMATION: Early satiety TECHNIQUE: A standard meal consisting of 4 oz of Egg Beaters (the patient ate only 2 to 3 oz) tagged with 740 microcuries Tc-99m Sulfur Colloid, 4 oz water and 1/2 of toast with jelly was consumed by the patient. Images were obtained using a dual head gamma camera in the anterior and posterior projections over of the stomach immediately post ingestion and at hourly intervals up to 4 hours post ingestion. The percent retention of the radiolabeled meal was calculated at each time interval by using geometric mean. FINDINGS: There is good visualization of activity in the stomach immediately post ingestion. As the study progresses, there is accelerated clearance of activity from the stomach within the first hour with no significant retention noted by the end of the second hour. Retention in the stomach at each time interval was;: 1 hour 26% (normal < 90%) 2 hours 8% (normal < 60%) 3 hours 5% 4 hours 4% (normal < 10%) Gastric emptying study grading per Consensus Recommendations in 2008 (https://tech.snmjournals.org/content/36/44) NM/NM gastric emptying study IMPRESSION: There is no scintigraphic evidence for delayed gastric emptying. However, there is accelerated clearance of the partly consumed standard meal within the initial hour, uncertain clinical significance. Electronically signed by: Samira Ca MD 01/25/2024 12:17 PM [facility] BURNS
== END ==
LOC: HO.NUCMED 08:11
PROVIDERS: Visit Provider Internal Medicine Gastroenterology
DX: R68.81 Early satiety (principal)
CPT/HCPCS: 78264; A9541

== ENCOUNTER → 2024-02-16 07:27 | Day surgery (SDC) | payer OTHER, MEDICAID, SELFPAY ==
[2024-02-16 08:12] VITALS: BMI 18.1
[2024-02-16 08:30] VITALS: BP 124/59; PULSE 113; RESP 16; TEMP 37.1; O2SAT 96
--- NOTE | 2024-02-16 08:30 | P.CONAN_ITS ---
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 Constipation Anxiety COVID-19 vaccine series completed long term resident Gastrojejunostomy tube dislodgement Impaired mobility Osteoarthritis Back pain Hypothyroid DVT (deep venous thrombosis) Anemia History of pseudoachalasia of esophagus GERD (gastroesophageal reflux disease) Neuropathy Psychological disorder Cerebrovascular disease Chronic respiratory failure COPD (chronic obstructive pulmonary disease) Asthma HLD (hyperlipidemia) Dysphagia Family History Family history of problems with anesthesia: No Surgical History Surgical History (Updated 02/16/24 @ 08:29 by Daxa Brasher RN) History of inguinal hernia repair History of total right hip replacement Hx of colonoscopy History of esophagogastroduodenoscopy (EGD) (06/10/23) History of Problems with Anesthesia: No Social History Social History Housing Other:: [phone] ([address]) Are you a primary intensive care unit registered nurse to a significant other at home: No Do you presently have visiting nurse or other home services: Yes (as above noted) Patient Tobacco Use Status: Former Tobacco user Tobacco use type: Cigarette Cigarette Packs Per Day: 1 Cigarettes Per Day: 20.0 Years Smoked: 10 Use of substances other than those prescribed or required for medical reasons: No Are you DNR?: No Advance Directives: No Advance Directives Information Provided: Yes Advance Directives Date on File: 06/09/20 Meds Allergies Allergy/AdvReac Type Severity Reaction Status Date / Time monosodium glutamate [MSG] Allergy Severe throat Verified 02/16/24 08:34 close up morphine [MORPHINE] Allergy Severe Seizure Verified 02/16/24 08:34 ceftriaxone [CEFTRIAXONE] Allergy Unknown UNKNOWN Verified 02/16/24 08:34 Home Medications ?Medication ?Instructions ?Recorded ?Confirmed ?Last Taken ?Type divalproex 125 mg capsule,delayed 250 mg PO BEDTIME 06/08/20 06/10/23 11/19/23 History release sprinkle duloxetine 30 mg capsule,delayed 1 cap PO DAILY 06/08/20 06/10/23 11/20/23 History release hydromorphone 2 mg tablet 4 mg PO Q6H PRN Pain 06/08/20 06/10/23 02/16/24 06:00 History ipratropium 20 mcg-albuterol 100 1 puff inhalation Q4H PRN 06/08/20 06/10/23 06/10/23 History mcg/actuation mist for inhalation Shortness Of Breath (Combivent Respimat) ondansetron HCl 4 mg tablet 4 mg PO Q6H PRN Nausea And Vomiting 06/08/20 06/10/23 Unknown History rivaroxaban 10 mg tablet (Xarelto) 1 tab PO DAILY 06/08/20 06/10/23 02/13/24 History acetaminophen 325 mg tablet 650 mg PO Q4H PRN Pain 02/07/22 06/10/23 Unknown History albuterol sulfate 90 mcg/actuation 1 inh inhalation QID PRN Shortness 02/07/22 06/10/23 Unknown History aerosol inhaler (ProAir HFA) Of Breath Or Wheezing calcium 600 mg (as 1 tab PO BID 02/07/22 06/10/23 Unknown History carbonate)-vitamin D3 5 mcg (200 unit) tablet (Calcium 600 + D(3)) carboxymethylcellulose sodium 2 drp ophthalmic (eye) BID 02/07/22 06/10/23 Unknown History levothyroxine 75 mcg tablet 1 tab PO DAILY 02/07/22 06/10/23 11/20/23 History atorvastatin 40 mg tablet (Lipitor) 40 mg PO BEDTIME 04/26/22 06/10/23 Unknown History magnesium hydroxide 400 mg/5 mL 30 ml PO DAILY PRN Constipation 04/26/22 06/10/23 Unknown History oral suspension (Milk of Magnesia) sennosides 8.6 mg capsule (senna) 8.6 mg PO BID 04/26/22 06/10/23 Unknown History sodium chloride 0.65 % nasal spray 2 spray intranasal QID PRN Dry 06/17/22 06/10/23 Unknown History aerosol (Saline Nasal) Nasal Passages esomeprazole magnesium 40 mg 40 mg PO BID 11/28/22 06/10/23 11/20/23 History capsule,delayed release gabapentin 100 mg capsule 100 mg PO BEDTIME 11/28/22 06/10/23 Unknown History benzonatate 100 mg capsule 100 mg PO TID PRN Cough 01/20/23 06/10/23 Unknown History dextromethorphan-guaifenesin 10 10 ml PO Q4H PRN Cough 01/20/23 06/10/23 Unknown History mg-100 mg/5 mL oral liquid guaifenesin 600 mg tablet, 600 mg PO BID 01/20/23 06/10/23 Unknown History extended release 12 hr cholecalciferol (vitamin D3) 10 10 mcg PO DAILY 06/06/23 06/10/23 Unknown History mcg (400 unit) capsule ferrous sulfate 325 mg (65 mg 325 mg PO DAILY 06/06/23 06/10/23 Unknown History iron) tablet (Feosol) multivitamin 1 tab PO DAILY 06/06/23 06/10/23 Unknown History fluticasone furoate 200 1 ea inhalation DAILY 06/10/23 06/10/23 Unknown History mcg-vilanterol 25 mcg/dose inhalation powder (Breo Ellipta) fluticasone propionate 50 intranasal 11/28/23 Unknown History mcg/actuation nasal spray,suspension Assessment and Plan Final Anesthetic Review Family History of Problems with Anesthesia: No History of Problems with Anesthesia: No Documented by User: Daxa Rinaldi DO 02/16/24 08:46 HPI - Anesthesia Eval Consult details Narrative: 69yo F for Upper Endoscopy savary dilation s/p same 10/2023 with [facility] resident christopher for DVT chronic opioids PMFSH Past Medical History Medical History Sepsis Peripheral vascular disease Bacteremia Cellulitis CHF (congestive heart failure) Respiratory failure with hypoxia Scoliosis Pneumothorax Contracture of hand Tachycardia Gastritis Major depressive disorder 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 Constipation Anxiety COVID-19 vaccine series completed long term resident Gastrojejunostomy tube dislodgement Impaired mobility Osteoarthritis Back pain Hypothyroid DVT (deep venous thrombosis) Anemia History of pseudoachalasia of esophagus GERD (gastroesophageal reflux disease) Neuropathy Psychological disorder Cerebrovascular disease Chronic respiratory failure COPD (chronic obstructive pulmonary disease) Asthma HLD (hyperlipidemia) Dysphagia Family History Family history of problems with anesthesia: No Surgical History Surgical History (Updated 02/16/24 @ 08:29 by Daxa Brasher RN) History of inguinal hernia repair History of total right hip replacement Hx of colonoscopy History of esophagogastroduodenoscopy (EGD) (06/10/23) History of Problems with Anesthesia: No Social History Social History Housing Other:: [phone] ([address]) Are you a primary intensive care unit registered nurse to a significant other at home: No Do you presently have visiting nurse or other home services: Yes (as above noted) Patient Tobacco Use Status: Former Tobacco user Tobacco use type: Cigarette Cigarette Packs Per Day: 1 Cigarettes Per Day: 20.0 Years Smoked: 10 Use of substances other than those prescribed or required for medical reasons: No Are you DNR?: No Advance Directives: No Advance Directives Information Provided: Yes Advance Directives Date on File: 06/09/20 Meds Allergies Allergy/AdvReac Type Severity Reaction Status Date / Time monosodium glutamate [MSG] Allergy Severe throat Verified 02/16/24 08:34 close up morphine [MORPHINE] Allergy Severe Seizure Verified 02/16/24 08:34 ceftriaxone [CEFTRIAXONE] Allergy Unknown UNKNOWN Verified 02/16/24 08:34 Home Medications ?Medication ?Instructions ?Recorded ?Confirmed ?Last Taken ?Type divalproex 125 mg capsule,delayed 250 mg PO BEDTIME 06/08/20 06/10/23 11/19/23 History release sprinkle duloxetine 30 mg capsule,delayed 1 cap PO DAILY 06/08/20 06/10/23 11/20/23 History release hydromorphone 2 mg tablet 4 mg PO Q6H PRN Pain 06/08/20 06/10/2324 06:00 History ipratropium 20 mcg-albuterol 100 1 puff inhalation Q4H PRN 06/08/20 06/10/23 06/10/23 History mcg/actuation mist for inhalation Shortness Of Breath (Combivent Respimat) ondansetron HCl 4 mg tablet 4 mg PO Q6H PRN Nausea And Vomiting 06/08/20 06/10/23 Unknown History rivaroxaban 10 mg tablet (Xarelto) 1 tab PO DAILY 06/08/20 06/10/23 02/13/24 History acetaminophen 325 mg tablet 650 mg PO Q4H PRN Pain 02/07/22 06/10/23 Unknown His tory albuterol sulfate 90 mcg/actuation 1 inh inhalation QID PRN Shortness 02/07/22 06/10/23 Unknown History aerosol inhaler (ProAir HFA) Of Breath Or Wheezing calcium 600 mg (as 1 tab PO BID 02/07/22 06/10/23 Unknown History carbonate)-vitamin D3 5 mcg (200 unit) tablet (Calcium 600 + D(3)) carboxymethylcellulose sodium 2 drp ophthalmic (eye) BID 02/07/22 06/10/23 Unknown History levothyroxine 75 mcg tablet 1 tab PO DAILY 02/07/22 06/10/23 11/20/23 History atorvastatin 40 mg tablet (Lipitor) 40 mg PO BEDTIME 04/26/22 06/10/23 Unknown History magnesium hydroxide 400 mg/5 mL 30 ml PO DAILY PRN Constipation 04/26/22 06/10/23 Unknown History oral suspension (Milk of Magnesia) sennosides 8.6 mg capsule (senna) 8.6 mg PO BID 04/26/22 06/10/23 Unknown History sodium chloride 0.65 % nasal spray 2 spray intranasal QID PRN Dry 06/17/22 06/10/23 Unknown History aerosol (Saline Nasal) Nasal Passages esomeprazole magnesium 40 mg 40 mg PO BID 11/28/22 06/10/23 11/20/23 History capsule,delayed release gabapentin 100 mg capsule 100 mg PO BEDTIME 11/28/22 06/10/23 Unknown History benzonatate 100 mg capsule 100 mg PO TID PRN Cough 01/20/23 06/10/23 Unknown History dextromethorphan-guaifenesin 10 10 ml PO Q4H PRN Cough 01/20/23 06/10/23 Unknown History mg-100 mg/5 mL oral liquid guaifenesin 600 mg tablet, 600 mg PO BID 01/20/23 06/10/23 Unknown History extended release 12 hr cholecalciferol (vitamin D3) 10 10 mcg PO DAILY 06/06/23 06/10/23 Unknown History mcg (400 unit) capsule ferrous sulfate 325 mg (65 mg 325 mg PO DAILY 06/06/23 06/10/23 Unknown History iron) tablet (Feosol) multivitamin 1 tab PO DAILY 06/06/23 06/10/23 Unknown History fluticasone furoate 200 1 ea inhalation DAILY 06/10/23 06/10/23 Unknown History mcg-vilanterol 25 mcg/dose inhalation powder (Breo Ellipta) fluticasone propionate 50 intranasal 11/28/23 Unknown History mcg/actuation nasal spray,suspension Exam Exam Date and Time: 02/16/24 0830 Height,Weight and Vital Signs: Height 5 ft 9.75 in Weight 56.699 kg Vital Signs Temperature 98.7 F 02/16/24 08:30 Pulse Rate 113 H 02/16/24 08:30 Respiratory Rate 16 02/16/24 08:30 Blood Pressure 124/59 L 02/16/24 08:30 Pulse Oximetry 96 02/16/24 08:30 Oxygen Delivery Method Room Air 02/16/24 08:30 Temperature 98.7 F 02/16/24 08:30 Pulse Rate 113 H 02/16/24 08:30 Respiratory Rate 16 02/16/24 08:30 Blood Pressure 124/59 L 02/16/24 08:30 Pulse Oximetry 96 02/16/24 08:30 Oxygen Delivery Method Room Air 02/16/24 08:30 Airway Mallampati Class: II TM Dist: >3cm Neck ROM: Limited Denture: Upper Heart: S1S2 Lungs: CTAB Assessment and Plan Assessment Anesthesia Assessment: Anesthesia Plan Discussed and Chart Reviewed Final Anesthetic Review Family History of Problems with Anesthesia: No History of Problems with Anesthesia: No NPO: Yes ASA Class: III Final Preanesthetic Review: No Changes in Pt Med Stat, Meds/Allgs Chart Reviewed, Consent Obtained/Reviewed and Anes Risks/Benef Reviewed Patient Risk: Intermediate Procedure Risk: Low Anesthetic Plan Anesthetic Plan: MAC: and Agree w/ Assess. and Plan Disposition: Standard PACU
[2024-02-16] MEDS: Lactated Ringers 1,000 ML 50 ML IVCONT (08:34)
--- NOTE | 2024-02-16 08:34 | MHC.SHP ---
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 Constipation Anxiety ) History of Previous Operations: Relevant previous surgery/procedure and date(s) (History of inguinal hernia repair History of total right hip replacement Hx of colonoscopy History of esophagogastroduodenoscopy (EGD) (06/10/23)) Allergies: Allergies Allergy/AdvReac Type Severity Reaction Status Date / Time monosodium glutamate [MSG] Allergy Severe throat Verified 11/28/23 12:10 close up morphine [MORPHINE] Allergy Severe Seizure Verified 11/28/23 12:10 ceftriaxone [CEFTRIAXONE] Allergy Unknown UNKNOWN Verified 11/28/23 12:10 Review of Systems Sugical H&P ROS: Negative: Constitution, Cardiovascular, Respiratory, Neurological, Psychiatric, Hem-Onc, Allergic/Immunologic, Gastrointestinal, Genitourinary, Musculoskeletal, Integumentary, Endocrine and Eyes/Ears/Nose/Throat Exam Surgical H&P Exam: Normal: HEENT, Normal: Heart, Normal: Lungs, Normal: Abdomen, Normal: Skin and Normal: Neurological and Significant Findings: Extremities (contractures) Plan Diagnosis/Plan: Unchanged I have reviewed the history and physical and performed a pertinent physical examination on my patient. No changes have occurred unless specified. Time Spent With Patient Time: Total time managing care of this patient today ____ minutes.
--- NOTE | 2024-02-16 09:16 | W.PM.OPN ---
Operative Note Operative Note Date of Service: 02/16/24 Narrative: Procedure Description: EGD Indication: dysphagia Anesthesia: MAC FLEXIBLE TRANSORAL UPPER GASTROINTESTINAL ENDOSCOPY UPPER ENDOSCOPY Consent: Indications for the procedure and potential complications of bleeding, perforation, reaction to medications and missed diagnosis were discussed with the patient and informed consent was obtained. Instrument: Olympus GIF H 190 J mid size upper endoscope Monitoring: Vital signs and clinical assessment, continuous EKG monitoring, Pulse oximetry, Carbon Dioxide monitoring and blood pressure monitoring were done throughout the procedure. Procedure: The patient was placed in the left lateral decubitis position and pre-procedure medications were administered and a bite block was placed. The endoscope was inserted into the mouth and advanced under direct vision to the third part of duodenum. A careful inspection was made as the upper endoscope was withdrawn including a retroflexed examination of the proximal stomach; Findings and interventions are described below. Findings: Larynx: normal Esophagus: GE junction at 40 cm, and was tight. Mild esophagitis with bogginess at GEJ. This was then dilated to 20 mm with balloon. the UES was also dilated to 29 mm. Small tear noted at GEJ. Stomach: Mild gastric erythema. Grade 2 flap valve on retroflexed examination of the cardia. Few fundic gland polyps noted. Pylorus seemed tight and dialted to 20 mm with wire guided balloon. Duodenum: normal, Intervention:balloon dilation - wire and non wire guided Impression and Post Procedure Diagnosis: Endoscopy Findings: esophageal stricture s/p dilation Plan: Continue present medications i.e PPI restart anti coagulation tomorrow morning can allow clears today and advance diet as tolerated tomorrow if ongoing dysphagia then will consider esophgeal manometry referral can use magic mouthwash prn for 1 week carafate,1 g BID if needed
[2024-02-16 09:30] VITALS: BP 94/52; PULSE 130; RESP 18; TEMP 36.6; O2SAT 97
[2024-02-16 09:45] VITALS: BP 103/62; PULSE 115; RESP 18; O2SAT 97
[2024-02-16 10:00] VITALS: BP 109/69; PULSE 114; RESP 18; O2SAT 97
== END | disposition home or self-care (01) ==
PROVIDERS: Visit Provider Internal Medicine Gastroenterology
PROC: 0DJ08ZZ Inspection of Upper Intestinal Tract, Via Natural or Artificial Opening Endoscopic (ICD-10-PCS; CPT 43235; principal; 2024-02-16 09:10)
DX: K22.2 Esophageal obstruction (principal); K20.90 Esophagitis, unspecified without bleeding; K22.89 Other specified disease of esophagus; K31.7 Polyp of stomach and duodenum; R13.10 Dysphagia, unspecified; K21.9 Gastro-esophageal reflux disease without esophagitis; E78.5 Hyperlipidemia, unspecified; D64.9 Anemia, unspecified; J44.9 Chronic obstructive pulmonary disease, unspecified; J96.10 Chronic respiratory failure, unspecified whether with hypoxia or hypercapnia; Z87.891 Personal history of nicotine dependence; Z86.718 Personal history of other venous thrombosis and embolism; Z79.01 Long term (current) use of anticoagulants; Z79.02 Long term (current) use of antithrombotics/antiplatelets; Z79.899 Other long term (current) drug therapy
CPT/HCPCS: 43245; 43249; 43248; C1726; J1100; J1596; J1805; J2003; J2704

== ENCOUNTER → 2024-02-16 07:27 | Outpatient (BNV) | payer OTHER, MEDICAID, SELFPAY | PROVIDERS: Visit Provider Internal Medicine Gastroenterology | DX: K22.2 Esophageal obstruction (principal); K20.90 Esophagitis, unspecified without bleeding; K31.7 Polyp of stomach and duodenum; K31.1 Adult hypertrophic pyloric stenosis | CPT/HCPCS: 43245; 43249 ==

== ENCOUNTER 2024-06-30 09:16 | Day surgery (SDC) | payer MEDICARE, MEDICAID, SELFPAY ==
--- OUTSIDE RECORDS SUMMARY | 2024-06-07 13:38 | XMS_ITS | Clinical Summary ---
Author Organization [facility] Address [address] [place] [address] Care Team Providers Care Administrative Support Manager Name Role Phone Harriet Unger MD Primary Care Provider [phone] Allergies Active Allergy Reactions Criticality Noted Date Comments Morphine 03/14/2017 Msg 03/14/2017 Medications Medication Sig Dispensed Refills Start Date End Date Status albuterol (PROVENTIL) (2.5 MG/3ML) 0.083% nebulizer solution 0 12/16/2016 Active doxycycline (VIBRAMYCIN) 100 MG capsule 0 01/07/2017 Active ADVAIR DISKUS 250-50 MCG/DOSE DISKUS 0 12/28/2016 Active gabapentin (NEURONTIN) 400 MG capsule 0 02/13/2017 Active mupirocin (BACTROBAN) 2 % ointment 0 02/03/2017 Active oseltamivir (TAMIFLU) 30 MG capsule 0 03/06/2017 Active Oxycodone HCl 10 MG TABS 0 03/03/2017 Active CREON 73977 UNITS CPEP capsule 0 12/28/2016 Active pravastatin (PRAVACHOL) tablet 20 mg 0 02/20/2017 Active predniSONE (DELTASONE) tablet 20 mg 0 02/13/2017 Active XARELTO 10 MG tablet 0 02/27/2017 Acti ve SPIRIVA HANDIHALER 18 MCG inhalation capsule 0 02/15/2017 Ac tive valproate sodium (DEPAKENE) 250 MG/5ML syrup 0 01/22/2017 Active baclofen (LIORESAL) 10 MG tablet Take 10 mg by mouth 3 (three) times a day. 0 Active amLODIPine (NORVASC) tablet 10 mg Take 10 mg by mouth daily. 0 Active mirtazapine (REMERON) 15 MG tablet Take 15 mg by mouth every night at bedtime. 0 Active methylphenidate (RITALIN) 5 MG tablet Take 5 mg by mouth 2 (two) times a day. 0 Active HYDROmorphone (DILAUDID) 2 MG tablet Take 2 mg by mouth every 4 (four) hours as needed for pain. 0 Active BROVANA 15 MCG/2ML NEBU 0 10/19/2018 Active budesonide (PULMICORT) 0.25 MG/2ML nebulizer solution 0 09/26/2018 Active busPIRone (BUSPAR) 5 MG tablet 0 11/02/2018 Active doxycycline monohydrate (MONODOX) 100 MG capsule 0 08/21/2018 Active DULoxetine (CYMBALTA) DR capsule 30 mg 0 11/13/2018 Active enoxaparin (LOVENOX) 40 MG/0.4ML SOLN 0 10/30/2018 Active furosemide (LASIX) 20 MG tablet 0 10/28/2018 Active levothyroxine (SYNTHROID, LEVOXYL) tablet 125 mcg 0 11/12/2018 Active pantoprazole (PROTONIX) 20 MG tablet 0 10/24/2018 Active INCRUSE ELLIPTA 62.5 MCG/INH AEPB 0 11/01/2018 Active Probiotic Product (ACIDOPHILUS/BIFIDUS PO) Take by mouth. 0 Active diphenhydrAMINE (BENADRYL) 12.5 MG/5ML liquid Take by mouth 4 (four) times a day as needed for allergies. 0 Active bisacodyl (DULCOLAX) [address] 10 mg rectally daily. 0 Active Active Problems Problem Noted Date Diagnosed Date Flexion contractures bilateral long, ring and sm all fingers 11/18/2018 Lumbar back pain with radicu lopathy affecting lower extremity 03/11/2018 Family History Medical History Relation Name Comments Cancer Other Collagen disease Other Heart disease Other Hypertension Other Osteoporosis Other Relation Name Status Comments Other Social History Tobacco Use Types Packs/Day Years Used Date Smoking Tobacco: Smoker, Current Status Unknown Smokeless Tobacco: Never Alcohol Use Standard Drinks/Week Comments Yes 0 (1 standard drink = 0.6 oz pur e alcohol) Sex and Gender Information Value Date Recorded Sex Assigned at Not on file Gender Identity Not on file Sexual Orientation Not on file Last Filed Vital Signs Vital Sign Reading Time Taken Comments Blood Pressure - - Pulse - - Temperature - - Respiratory Rate - - Oxygen Saturation - - Inhaled Oxygen Concentration - - Weight 65.8 kg (145 lb) 03/14/2017 10:18 AM EST Height 175.3 cm (5' 9 ) 03/14/2017 10:18 AM EST Body Mass Index 21.41 03/14/2017 10:18 AM EST Plan of Treatment Health Maintenance Due Date Last Done Comments Hepatitis C Screening 1955 COVID-19 Vaccine (#1) 1955 Pneumococcal Vaccine (1 of 2 - PCV) 1961 Depression Screening 1967 Preventative Health Evaluation 1973 Tobacco Cessation Counseling 1973 DTap / Tdap / Td (1 - Tdap) 1974 Colon Cancer Screening (Colonoscopy) 01/29/2000 Breast Cancer Screening (Mammogram) 2005 Shingrix-Zoster Vaccine (1 of 2) 2005 Fall Risk Assessment 01/29/2020 Osteoporosis Screening (DEXA Scan) 01/29/2020 Influenza Vaccine (#1) 2023 RSV Adult > 60+ Yrs or Pregn ant (1 - 1-dose 75+ series) 2030 Hepatitis B Vaccines Aged Out No long er eligible based on patient's age to complete this topic RSV Ped < 20 months Aged Out No longe r eligible based on patient's age to complete this topic Care Teams Administrative Support Manager Relationship Specialty Start Date End Date Harriet Unger MD [address] [phone] PCP - General Internal Medicine 03/13/17
[2024-06-28 14:49] VITALS: BMI 20.4
--- NOTE | 2024-06-29 09:57 | HO.ANESPROP2 ---
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 Constipation Anxiety COVID-19 vaccine series completed 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 Gastrojejunostomy tube dislodgement Impaired mobility Osteoarthritis Back pain Hypothyroid DVT (deep venous thrombosis) Anemia History of pseudoachalasia of esophagus GERD (gastroesophageal reflux disease) Neuropathy Psychological disorder Cerebrovascular disease Chronic respiratory failure COPD (chronic obstructive pulmonary disease) Asthma HLD (hyperlipidemia) Dysphagia Family History Family history of problems with anesthesia: No Surgical History Surgical History History of inguinal hernia repair History of total right hip replacement Hx of colonoscopy History of esophagogastroduodenoscopy (EGD) (06/10/23) History of Problems with Anesthesia: No Social History Social History Household Members Other:: resides in [facility] Housing Other:: [phone] ([address]) Are you a primary primary care md to a significant other at home: No Do you presently have visiting nurse or other home services: No Patient Tobacco Use Status: Former Tobacco user Tobacco use type: Cigarette Cigarette Packs Per Day: 1 Cigarettes Per Day: 20.0 Years Smoked: 10 Use of substances other than those prescribed or required for medical reasons: No Have you been hit, kicked, punched, or otherwise hurt by someone within the past year? If so, by whom?: No Are you DNR?: No Advance Directives: No Advance Directives Information Provided: Yes Advance Directives Date on File: 06/09/20 Patient : No Meds Allergies Allergy/AdvReac Type Severity Reaction Status Date / Time monosodium glutamate [MSG] Allergy Severe throat Verified 02/16/24 08:34 close up morphine [MORPHINE] Allergy Severe Seizure Verified 02/16/24 08:34 ceftriaxone [CEFTRIAXONE] Allergy Unknown UNKNOWN Verified 02/16/24 08:34 Home Medications ?Medication ?Instructions ?Recorded ?Confirmed ?Last Taken ?Type divalproex 125 mg capsule,delayed 250 mg PO BEDTIME 06/08/20 06/28/24 11/19/23 History release sprinkle duloxetine 30 mg capsule,delayed 1 cap PO DAILY 06/08/20 06/28/24 11/20/23 History release hydromorphone 2 mg tablet 4 mg PO Q6H PRN Pain 06/08/20 06/30/24 06/30/24 06:00 History ipratropium 20 mcg-albuterol 100 1 puff inhalation Q4H PRN 06/08/20 06/28/24 06/10/23 History mcg/actuation mist for inhalation Shortness Of Breath (Combivent Respimat) ondansetron HCl 4 mg tablet 4 mg PO Q6H PRN Nausea And Vomiting 06/08/20 06/28/24 Unknown History rivaroxaban 10 mg tablet (Xarelto) 1 tab PO DAILY 06/08/20 06/30/24 06/28/24 History acetaminophen 325 mg tablet 650 mg PO Q4H PRN Pain 02/07/22 06/28/24 Unknown History albuterol sulfate 90 mcg/actuation 1 inh inhalation QID PRN Shortness 02/07/22 06/28/24 Unknown History aerosol inhaler (ProAir HFA) Of Breath Or Wheezing calcium 600 mg (as 1 tab PO BID 02/07/22 06/28/24 Unknown History carbonate)-vitamin D3 5 mcg (200 unit) tablet (Calcium 600 + D(3)) carboxymethylcellulose sodium 2 drp ophthalmic (eye) BID 02/07/22 06/28/24 Unknown History levothyroxine 75 mcg tablet 1 tab PO DAILY 02/07/22 06/28/24 11/20/23 History atorvastatin 40 mg tablet (Lipitor) 40 mg PO BEDTIME 04/26/22 06/28/24 Unknown History magnesium hydroxide 400 mg/5 mL 30 ml PO DAILY PRN Constipation 04/26/22 06/28/24 Unknown History oral suspension (Milk of Magnesia) sennosides 8.6 mg capsule (senna) 8.6 mg PO BID 04/26/22 06/28/24 Unknown History sodium chloride 0.65 % nasal spray 2 spray intranasal QID PRN Dry 06/17/22 06/28/24 Unknown History aerosol (Saline Nasal) Nasal Passages esomeprazole magnesium 40 mg 40 mg PO BID 11/28/22 06/28/24 11/20/23 History capsule,delayed release gabapentin 100 mg capsule 100 mg PO BEDTIME 11/28/22 06/28/24 Unknown History benzonatate 100 mg capsule 100 mg PO TID PRN Cough 01/20/23 06/28/24 Unknown History dextromethorphan-guaifenesin 10 10 ml PO Q4H PRN Cough 01/20/23 06/28/24 Unknown History mg-100 mg/5 mL oral liquid guaifenesin 600 mg tablet, 600 mg PO BID 01/20/23 06/28/24 Unknown History extended release 12 hr cholecalciferol (vitamin D3) 10 10 mcg PO DAILY 06/06/23 06/28/24 Unknown History mcg (400 unit) capsule ferrous sulfate 325 mg (65 mg 325 mg PO DAILY 06/06/23 06/28/24 Unknown History iron) tablet (Feosol) multivitamin 1 tab PO DAILY 06/06/23 06/28/24 Unknown History fluticasone furoate 200 1 ea inhalation DAILY 06/10/23 06/28/24 Unknown History mcg-vilanterol 25 mcg/dose inhalation powder (Breo Ellipta) fluticasone propionate 50 1 spray intranasal DAILY 11/28/23 06/28/24 Unknown History mcg/actuation nasal spray,suspension Exam Height,Weight and Vital Signs: Height 5 ft 9 in Weight 62.596 kg Assessment and Plan Assessment Anesthesia Assessment: Chart Reviewed Final Anesthetic Review Family History of Problems with Anesthesia: No History of Problems with Anesthesia: No Documented by User: Len Gilman MD 06/30/24 11:07 PMFSH Past Medical History Medical History Sepsis Peripheral vascular disease Bacteremia Cellulitis CHF (congestive heart failure) Respiratory failure with hypoxia Scoliosis Pneumothorax Contracture of hand Tachycardia Gastritis Major depressive disorder 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 Constipation Anxiety COVID-19 vaccine series completed 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 Gastrojejunostomy tube dislodgement Impaired mobility Osteoarthritis Back pain Hypothyroid DVT (deep venous thrombosis) Anemia History of pseudoachalasia of esophagus GERD (gastroesophageal reflux disease) Neuropathy Psychological disorder Cerebrovascular disease Chronic respiratory failure COPD (chronic obstructive pulmonary disease) Asthma HLD (hyperlipidemia) Dysphagia Surgical History Surgical History History of inguinal hernia repair History of total right hip replacement Hx of colonoscopy History of esophagogastroduodenoscopy (EGD) (06/10/23) Social History Social History Household Members Other:: resides in [facility] Housing Other:: [phone] ([address]) Are you a primary primary care md to a significant other at home: No Do you presently have visiting nurse or other home services: No Patient Tobacco Use Status: Former Tobacco user Tobacco use type: Cigarette Cigarette Packs Per Day: 1 Cigarettes Per Day: 20.0 Years Smoked: 10 Use of substances other than those prescribed or required for medical reasons: No Have you been hit, kicked, punched, or otherwise hurt by someone within the past year? If so, by whom?: No Are you DNR?: No Advance Directives: No Advance Directives Information Provided: Yes Advance Directives Date on File: 06/09/20 Patient : No Meds Allergies Allergy/AdvReac Type Severity Reaction Status Date / Time monosodium glutamate [MSG] Allergy Severe throat Verified 02/16/24 08:34 close up morphine [MORPHINE] Allergy Severe Seizure Verified 02/16/24 08:34 ceftriaxone [CEFTRIAXONE] Allergy Unknown UNKNOWN Verified 02/16/24 08:34 Home Medications ?Medication ?Instructions ?Recorded ?Confirmed ?Last Taken ?Type divalproex 125 mg capsule,delayed 250 mg PO BEDTIME 06/08/20 06/28/24 11/19/23 History release sprinkle duloxetine 30 mg capsule,delayed 1 cap PO DAILY 06/08/20 06/28/24 11/20/23 History release hydromorphone 2 mg tablet 4 mg PO Q6H PRN Pain 06/08/20 06/30/24 06/30/24 06:00 History ipratropium 20 mcg-albuterol 100 1 puff inhalation Q4H PRN 06/08/20 06/28/24 06/10/23 History mcg/actuation mist for inhalation Shortness Of Breath (Combivent Respimat) ondansetron HCl 4 mg tablet 4 mg PO Q6H PRN Nausea And Vomiting 06/08/20 06/28/24 Unknown History rivaroxaban 10 mg tablet (Xarelto) 1 tab PO DAILY 06/08/20 06/30/24 06/28/24 History acetaminophen 325 mg tablet 650 mg PO Q4H PRN Pain 02/07/22 06/28/24 Unknown History albuterol sulfate 90 mcg/actuation 1 inh inhalation QID PRN Shortness 02/07/22 06/28/24 Unknown History aerosol inhaler (ProAir HFA) Of Breath Or Wheezing calcium 600 mg (as 1 tab PO BID 02/07/22 06/28/24 Unknown History carbonate)-vitamin D3 5 mcg (200 unit) tablet (Calcium 600 + D(3)) carboxymethylcellulose sodium 2 drp ophthalmic (eye) BID 02/07/22 06/28/24 Unknown History levothyroxine 75 mcg tablet 1 tab PO DAILY 02/07/22 06/28/24 11/20/23 History atorvastatin 40 mg tablet (Lipitor) 40 mg PO BEDTIME 04/26/22 06/28/24 Unknown History magnesium hydroxide 400 mg/5 mL 30 ml PO DAILY PRN Constipation 04/26/22 06/28/24 Unknown History oral suspension (Milk of Magnesia) sennosides 8.6 mg capsule (senna) 8.6 mg PO BID 04/26/22 06/28/24 Unknown History sodium chloride 0.65 % nasal spray 2 spray intranasal QID PRN Dry 06/17/22 06/28/24 Unknown History aerosol (Saline Nasal) Nasal Passages esomeprazole magnesium 40 mg 40 mg PO BID 11/28/22 06/28/24 11/20/23 History capsule,delayed release gabapentin 100 mg capsule 100 mg PO BEDTIME 11/28/22 06/28/24 Unknown History benzonatate 100 mg capsule 100 mg PO TID PRN Cough 01/20/23 06/28/24 Unknown History dextromethorphan-guaifenesin 10 10 ml PO Q4H PRN Cough 01/20/23 06/28/24 Unknown History mg-100 mg/5 mL oral liquid guaifenesin 600 mg tablet, 600 mg PO BID 01/20/23 06/28/24 Unknown History extended release 12 hr cholecalciferol (vitamin D3) 10 10 mcg PO DAILY 06/06/23 06/28/24 Unknown History mcg (400 unit) capsule ferrous sulfate 325 mg (65 mg 325 mg PO DAILY 06/06/23 06/28/24 Unknown History iron) tablet (Feosol) multivitamin 1 tab PO DAILY 06/06/23 06/28/24 Unknown History fluticasone furoate 200 1 ea inhalation DAILY 06/10/23 06/28/24 Unknown History mcg-vilanterol 25 mcg/dose inhalation powder (Breo Ellipta) fluticasone propionate 50 1 spray intranasal DAILY 11/28/23 06/28/24 Unknown History mcg/actuation nasal spray,suspension Exam Airway Mallampati Class: I TM Dist: >3cm Neck ROM: Full Denture: Upper and Lower Heart: ok Lungs: Sat 90-94% room air Assessment and Plan Assessment Anesthesia Assessment: Anesthesia Plan Discussed Final Anesthetic Review NPO: Yes ASA Class: IV Final Preanesthetic Review: No Changes in Pt Med Stat, Meds/Allgs Chart Reviewed, Consent Obtained/Reviewed and Anes Risks/Benef Reviewed Patient Risk: High Procedure Risk: Intermediate Anesthetic Plan Anesthetic Plan: Agree w/ Assess. and Plan and TIVA Disposition: Standard PACU
[2024-06-30 10:09] VITALS: BMI 20.4
[2024-06-30 10:21] VITALS: BP 115/53; PULSE 82; RESP 20; TEMP 36.3; O2SAT 94
[2024-06-30] MEDS: Lactated Ringers 1,000 ML 50 ML IVCONT (10:38)
--- NOTE | 2024-06-30 10:57 | MHC.SHP ---
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 Constipation Anxiety ) History of Previous Operations: Relevant previous surgery/procedure and date(s) (History of inguinal hernia repair History of total right hip replacement Hx of colonoscopy History of esophagogastroduodenoscopy (EGD) (06/10/23)) Allergies: Allergies Allergy/AdvReac Type Severity Reaction Status Date / Time monosodium glutamate [MSG] Allergy Severe throat Verified 02/16/24 08:34 close up morphine [MORPHINE] Allergy Severe Seizure Verified 02/16/24 08:34 ceftriaxone [CEFTRIAXONE] Allergy Unknown UNKNOWN Verified 02/16/24 08:34 Review of Systems Sugical H&P ROS: Negative: Constitution, Cardiovascular, Respiratory, Neurological, Psychiatric, Hem-Onc, Allergic/Immunologic, Gastrointestinal, Genitourinary, Musculoskeletal, Integumentary, Endocrine and Eyes/Ears/Nose/Throat Exam Surgical H&P Exam: Normal: HEENT, Normal: Heart, Normal: Lungs, Normal: Abdomen, Normal: Skin and Normal: Neurological and Significant Findings: Extremities (contractures, hands ) Plan Diagnosis/Plan: Unchanged I have reviewed the history and physical and performed a pertinent physical examination on my patient. No changes have occurred unless specified. EGD with balloon dilation due to dysphagia Time Spent With Patient Time: Total time managing care of this patient today ____ minutes.
--- NOTE | 2024-06-30 11:28 | W.PM.OPN ---
Operative Note Operative Note Date of Service: 06/30/24 Narrative: Procedure Description: EGD Indication: dysphagia and epigastric pain Anesthesia: MAC FLEXIBLE TRANSORAL UPPER GASTROINTESTINAL ENDOSCOPY UPPER ENDOSCOPY Consent: Indications for the procedure and potential complications of bleeding, perforation, reaction to medications and missed diagnosis were discussed with the patient and informed consent was obtained. Instrument: Olympus GIF H 190 J mid size upper endoscope Monitoring: Vital signs and clinical assessment, continuous EKG monitoring, Pulse oximetry, Carbon Dioxide monitoring and blood pressure monitoring were done throughout the procedure. Procedure: The patient was placed in the left lateral decubitis position and pre-procedure medications were administered and a bite block was placed. The endoscope was inserted into the mouth and advanced under direct vision to the third part of duodenum. A careful inspection was made as the upper endoscope was withdrawn including a retroflexed examination of the proximal stomach; Findings and interventions are described below. Findings: Larynx: normal Esophagus: GE junction at 40 cm, with mild esophagitis, bx taken. This was then dilated to 20 mm with balloon. the UES was also dilated to 20 mm, no tears seen. Stomach: Mild gastric erythema. Grade 2 flap valve on retroflexed examination of the cardia. Few fundic gland polyps noted. Pylorus seemed tight and dilated to 20 mm with wire guided balloon. There was also reduced gastric motility. Duodenum: normal, bx taken Intervention:balloon dilation - wire and non wire guided Impression and Post Procedure Diagnosis: Endoscopy Findings: esophageal stricture s/p dilation gastritis Plan: Continue present medications i.e PPI restart anti coagulation tomorrow morning can allow clears today and advance diet as tolerated tomorrow can use magic mouthwash prn for 1 week carafate,1 g BID if needed
[2024-06-30 11:35] VITALS: BP 102/51; PULSE 92; RESP 16; TEMP 36.3; O2SAT 96
[2024-06-30 11:50] VITALS: BP 118/58; PULSE 75; RESP 16; O2SAT 97
== END 2024-06-30 12:06 | disposition home or self-care (01) ==
PROVIDERS: PCP Family Medicine Geriatric Medicine; Visit Provider Internal Medicine Gastroenterology
PROC: (CPT 43249; principal; 2024-06-30 11:00)
DX: R13.10 Dysphagia, unspecified (principal); K20.80 Other esophagitis without bleeding; R10.13 Epigastric pain; K29.50 Unspecified chronic gastritis without bleeding; K31.84 Gastroparesis; K31.7 Polyp of stomach and duodenum; K59.00 Constipation, unspecified; Z86.19 Personal history of other infectious and parasitic diseases; I67.9 Cerebrovascular disease, unspecified; I82.401 Acute embolism and thrombosis of unspecified deep veins of right lower extremity; I73.9 Peripheral vascular disease, unspecified; I50.9 Heart failure, unspecified; J96.91 Respiratory failure, unspecified with hypoxia; R00.0 Tachycardia, unspecified; E03.9 Hypothyroidism, unspecified; E05.01 Thyrotoxicosis with diffuse goiter with thyrotoxic crisis or storm; E78.5 Hyperlipidemia, unspecified; F32.A Depression, unspecified; F41.9 Anxiety disorder, unspecified; Z79.51 Long term (current) use of inhaled steroids; Z79.899 Other long term (current) drug therapy; Z79.01 Long term (current) use of anticoagulants; Z88.5 Allergy status to narcotic agent; Z88.8 Allergy status to other drugs, medicaments and biological substances; Z66 Do not resuscitate; Z98.890 Other specified postprocedural states; Z87.891 Personal history of nicotine dependence
CPT/HCPCS: 43249; 43245; 43239; 88305; 88313; 88342; C1726; J2003; J2371; J2704; J3010

== ENCOUNTER → 2024-06-30 09:16 | Outpatient (BNV) | payer MEDICARE, MEDICAID, SELFPAY | PROVIDERS: PCP Family Medicine Geriatric Medicine; Visit Provider Internal Medicine Gastroenterology | DX: R13.10 Dysphagia, unspecified (principal); K20.90 Esophagitis, unspecified without bleeding; K29.70 Gastritis, unspecified, without bleeding; K31.7 Polyp of stomach and duodenum; K31.1 Adult hypertrophic pyloric stenosis | CPT/HCPCS: 43239; 43245; 43249 ==

== ENCOUNTER 2024-08-26 08:19 | Outpatient (REF) | payer MEDICARE, MEDICAID, SELFPAY ==
--- NOTE | ~2024-08-26 | US_ITS ---
CLINICAL HISTORY: R10.9 - Unspecified abdominal pain --- Additional Notes or Special Instructions: upper abdominal pain US abdomen complete Comparison: None provided Findings: The visualized pancreas is normal. The aorta and inferior vena cava are normal caliber. The liver is normal in size and echotexture. There is no intrahepatic bile duct dilatation. The common duct is 3.0 mm in diameter. The gallbladder is normal. There is no sonographic Cruz sign. The main portal vein is antegrade. The right kidney is 9.4 cm in length. The left kidney is 9.1 cm in length. The spleen is normal. No ascites. IMPRESSION: 1. Normal complete abdominal ultrasound. This document has been electronically signed by: Timothy Campbell MD on 08/26/2024 10:28:45
--- OUTSIDE RECORDS SUMMARY | 2024-08-26 08:24 | XMS_ITS | Clinical Summary ---
Author Organization [facility] Address [address] [place] [address] Care Team Providers Care Room Cooler Installer Name Role Phone Harriet Unger MD Primary Care Provider [phone] Allergies Active Allergy Reactions Criticality Noted Date [...] 10 MG TABS 0 03/03/2017 Active CREON 46710 UNITS CPEP capsule 0 12/28/2016 Active pravastatin [...] Osteoporosis Screening (DEXA Scan) 01/29/2020 Influenza Vaccine (Season Ended) 2024 RSV Adult > 60+ Yrs or Pregn ant (1 - 1-dose 75+ series) 2030 Hepatitis B Vaccines Aged Out No long er eligible based on patient's age to complete this topic RSV Ped < 20 months Aged Out No longe r eligible based on patient's age to complete this topic Care Teams Room Cooler Installer Relationship Specialty Start Date End Date Harriet Unger MD [address] [id number] PCP - General Internal Medicine 03/13/17
== END 2024-08-26 08:20 | disposition home or self-care (01) ==
LOC: HO.US 08:19
PROVIDERS: PCP Family Medicine Geriatric Medicine; Visit Provider Internal Medicine Gastroenterology
DX: R10.9 Unspecified abdominal pain (principal)
CPT/HCPCS: 76700

== ENCOUNTER → 2024-08-26 08:23 | Outpatient (BNV) | payer MEDICARE, MEDICAID, SELFPAY | PROVIDERS: PCP Family Medicine Geriatric Medicine; Visit Provider Specialist | DX: R10.9 Unspecified abdominal pain (principal) | CPT/HCPCS: 76700 ==

== ENCOUNTER 2025-01-10 12:29 | Outpatient (AMB) | payer MEDICARE, MEDICAID, SELFPAY ==
--- NOTE | 2025-01-10 12:33 | A.OFFVIS_ITS ---
Vital Signs 01/10/25 12:46 Height 5 ft 9 in Weight 126 lb BMI 18.6 BP 115/59 L Blood Pressure Location Lt brachial Position Sitting Pulse 84 Pulse Oximetry (%) 93 Oxygen Delivery Method Room Air Intake Visit Reasons: f/u swallowing Intake Note: Patient follow up Patient cc: vomiting with abdominal pain, acid reflux, swallowing difficulties/she said is time for EGD and also complaining of heavyness on her chest and back. Pewter Fab[employer]ator Required: No Accompanied by: Other Relationship Allergies monosodium glutamate (MSG) Allergy (Severe, Verified 01/10/25 12:44) throat close up morphine (MORPHINE) Allergy (Severe, Verified 01/10/25 12:44) Seizure ceftriaxone (CEFTRIAXONE) Allergy (Unknown, Verified 01/10/25 12:44) UNKNOWN HPI HPI f/u swallowing: Details: 69 yr old f here for f/u RECAP originally seen at [facility] issues with dysphagia, unkown etiology, prior dilation, also failure to thrive has g tube placed for feeding had been doing good but last 2 months increased dysphagia to solids, has to vomit back out, had been good for 9 months or so no abdo pain feels gtube gets clogeed easily and feels needs changed also asking about getting lower dentures to help chew no diarrhea or constipation chronic hand contractures. she had egd x 2 with dilation-- 11-14 mm balloon then further EGD w dilation 03/2019--balloon 15-17 mm with linear distal esophageal tear (Ba swallow before this wiht distal esophagus narrowing) PA called worried about d/c around G tube, had been treated with ABX EGD 05/2020-- erosive esophagitis, balloon dilation done 16.5 with tear noted EGD 01/2022--- 12--->13.5 mm balloon dilation EGD 01/16-- savary dilation 15 mm with small tears seen EGD: 06/10/23--savary dilation 16 mm EGD: 10/2013- dialation of UES and LES to 17 mm with small tear seen GES_ fast INTERIM: she has recurrecne of dysphagia, regurg and pain on swallowing she feels brain fog but very clear to me today no abdominal pain last stretch 06/2024-- lasted good till 11/18 on chronic opiates EXAM: GENERAL: The patient is relaxed, alert VITAL SIGNS:see workflow HEENT: Nonicteric sclerae, PERRLA, EOMI. Oropharynx clear. Moist mucous membranes. Conjunctivae appear well perfused. No thyroid mass. CHEST: Chest wall is nontender. HEART: Regular rate and rhythm without murmurs. LUNGS: Clear to auscultation bilaterally. ABDOMEN: Soft, positive bowel sounds, nontender, no organomegaly.no flank tenderness- SKIN: No rash, no excessive bruising, petechiae, or purpura. NEUROLOGIC: Cranial nerves II-XII intact without motor/sensory deficit. extremities: contractures of hands psych--normal affect, not depressed Assessments 1. 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 Constipation Anxiety COVID-19 vaccine series completed care home resident Gastrojejunostomy tube dislodgement Impaired mobility Osteoarthritis Back pain Hypothyroid DVT (deep venous thrombosis) Anemia History of pseudoachalasia of esophagus GERD (gastroesophageal reflux disease) Neuropathy Psychological disorder Cerebrovascular disease Chronic respiratory failure COPD (chronic obstructive pulmonary disease) Asthma HLD (hyperlipidemia) Dysphagia Surgical History History of inguinal hernia repair History of total right hip replacement Hx of colonoscopy History of esophagogastroduodenoscopy (EGD) (06/10/23) Social History Household Members Other:: resides in [facility] Housing Other:: [phone] ([address]) Are you a primary patient care manager to a significant other at home: No Do you presently have visiting nurse or other home services: No Patient Tobacco Use Status: Former Tobacco user Tobacco use type: Cigarette Cigarette Packs Per Day: 1 Cigarettes Per Day: 20.0 Years Smoked: 10 Advance Directives Date on File: 06/09/20 Physical Exam Vital Signs: Last Vital Signs Pulse 84 01/10/25 12:46 BP 115/59 L 01/10/25 12:46 Pulse Ox 93 01/10/25 12:46 Oxygen Delivery Method Room Air 01/10/25 12:46 BMI result Body Mass Index 18.6 Assessment & Plan Assessment & Plan (1) Dysphagia: Code(s): R13.10 - Dysphagia, unspecified Category: Medical Plan: as above Orders: Referrals GI Procedure Notification R13.10 - Dysphagia, unspecified Coding Level of Care Code Est Pt Level 3 (30899) Diagnoses Dysphagia R13.10
[2025-01-10 12:46] VITALS: BP 115/59; PULSE 84; O2SAT 93; BMI 18.6
== END 2025-01-10 12:55 | disposition home or self-care (01) ==
LOC: HO.HGI 12:29
PROVIDERS: PCP Family Medicine Geriatric Medicine; Visit Provider Internal Medicine Gastroenterology
DX: R13.10 Dysphagia, unspecified (principal)
CPT/HCPCS: 99213

== ENCOUNTER → 2025-01-10 12:29 | Outpatient (BNVA) | payer MEDICARE, MEDICAID, SELFPAY | PROVIDERS: PCP Family Medicine Geriatric Medicine; Visit Provider Internal Medicine Gastroenterology | DX: R13.10 Dysphagia, unspecified (principal); Z93.1 Gastrostomy status | CPT/HCPCS: 99212 ==

== ENCOUNTER 2025-01-18 13:38 | Day surgery (SDC) | payer MEDICARE, MEDICAID, SELFPAY ==
--- NOTE | 2025-01-18 13:23 | MHC.SHP ---
Pre-Procedural Eval Section A - 24 Hr Update-Section A only Date of Service: 01/18/25 The patient is an INPATIENT: No The patient has been examined within 24 hours of the surgical procedure. The History & Physical has been completed within 30 days and I have reviewed it.: Yes Section B - Complete if H&P > 30 days Chief Complaint: Dysphagia, unspecified Allergies: Allergies Allergy/AdvReac Type Severity Reaction Status Date / Time monosodium glutamate (MSG) Allergy Severe throat Verified 01/10/25 12:44 close up morphine (MORPHINE) Allergy Severe Seizure Verified 01/10/25 12:44 ceftriaxone (CEFTRIAXONE) Allergy Unknown UNKNOWN Verified 01/10/25 12:44 Plan Diagnosis/Plan: Unchanged I have reviewed the history and physical and performed a pertinent physical examination on my patient. No changes have occurred unless specified. Time Spent With Patient Time: Total time managing care of this patient today ____ minutes.
[2025-01-18 14:00] VITALS: BP 119/63; PULSE 88; RESP 16; TEMP 36.1; O2SAT 95; BMI 18.1
[2025-01-18] MEDS: Lactated Ringers 1,000 ML 100 ML IVCONT (14:10)
--- NOTE | 2025-01-18 14:20 | HO.ANESPROP2 ---
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 Constipation Anxiety COVID-19 vaccine series completed 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 Gastrojejunostomy tube dislodgement Impaired mobility Osteoarthritis Back pain Hypothyroid DVT (deep venous thrombosis) Anemia History of pseudoachalasia of esophagus GERD (gastroesophageal reflux disease) Neuropathy Psychological disorder Cerebrovascular disease Chronic respiratory failure COPD (chronic obstructive pulmonary disease) Asthma HLD (hyperlipidemia) Dysphagia Family History Family history of problems with anesthesia: No Surgical History Surgical History History of inguinal hernia repair History of total right hip replacement Hx of colonoscopy History of esophagogastroduodenoscopy (EGD) (06/10/23) History of Problems with Anesthesia: No Social History Social History Household Members Other:: resides in [facility] Housing Other:: [phone] ([address]) Are you a primary chronic care nurse to a significant other at home: No Do you presently have visiting nurse or other home services: No Patient Tobacco Use Status: Former Tobacco user Tobacco use type: Cigarette Cigarette Packs Per Day: 1 Cigarettes Per Day: 20.0 Years Smoked: 10 Use of substances other than those prescribed or required for medical reasons: No Are you DNR?: No Advance Directives: No Advance Directives Information Provided: Yes Advance Directives Date on File: 06/09/20 Meds Allergies Allergy/AdvReac Type Severity Reaction Status Date / Time monosodium glutamate (MSG) Allergy Severe throat Verified 01/18/25 14:00 close up morphine (MORPHINE) Allergy Severe Seizure Verified 01/18/25 14:00 ceftriaxone (CEFTRIAXONE) Allergy Unknown UNKNOWN Verified 01/18/25 14:00 Home Medications ?Medication ?Instructions ?Recorded ?Confirmed ?Last Taken ?Type divalproex 125 mg capsule,delayed 250 mg PO BEDTIME 06/08/20 01/18/25 11/19/23 History release sprinkle duloxetine 30 mg capsule,delayed 1 cap PO DAILY 06/08/20 01/18/25 11/20/23 History release ipratropium 20 mcg-albuterol 100 1 puff inhalation Q4H PRN 06/08/20 01/18/25 06/10/23 History mcg/actuation mist for inhalation Shortness Of Breath (Combivent Respimat) ondansetron HCl 4 mg tablet 4 mg PO Q6H PRN Nausea And Vomiting 06/08/20 01/18/25 Unknown History rivaroxaban 10 mg tablet (Xarelto) 1 tab PO DAILY 06/08/20 01/18/25 06/28/24 History acetaminophen 325 mg tablet 650 mg PO Q4H PRN Pain 02/07/22 01/18/25 Unknown History albuterol sulfate 90 mcg/actuation 1 inh inhalation QID PRN Shortness 02/07/22 01/18/25 Unknown History aerosol inhaler (ProAir HFA) Of Breath Or Wheezing calcium 600 mg (as 1 tab PO BID 02/07/22 01/18/25 Unknown History carbonate)-vitamin D3 5 mcg (200 unit) tablet (Calcium 600 + D(3)) carboxymethylcellulose sodium 2 drp ophthalmic (eye) BID 02/07/22 01/18/25 Unknown History levothyroxine 75 mcg tablet 1 tab PO DAILY 02/07/22 01/18/25 11/20/23 History atorvastatin 40 mg tablet (Lipitor) 40 mg PO BEDTIME 04/26/22 01/18/25 Unknown History sennosides 8.6 mg capsule (senna) 8.6 mg PO BID 04/26/22 01/18/25 Unknown History esomeprazole magnesium 40 mg 40 mg PO BID 11/28/22 01/18/25 11/20/23 History capsule,delayed release gabapentin 100 mg capsule 100 mg PO BEDTIME 11/28/22 01/18/25 Unknown History guaifenesin 600 mg tablet, 600 mg PO BID 01/20/23 01/18/25 Unknown History extended release 12 hr cholecalciferol (vitamin D3) 10 10 mcg PO DAILY 06/06/23 01/18/25 Unknown History mcg (400 unit) capsule ferrous sulfate 325 mg (65 mg 325 mg PO DAILY 06/06/23 01/18/25 Unknown History iron) tablet (Feosol) multivitamin 1 tab PO DAILY 06/06/23 01/18/25 Unknown History fluticasone furoate 200 1 ea inhalation DAILY 06/10/23 01/18/25 Unknown History mcg-vilanterol 25 mcg/dose inhalation powder (Breo Ellipta) fluticasone propionate 50 1 spray intranasal DAILY 11/28/23 01/18/25 Unknown History mcg/actuation nasal spray,suspension Assessment and Plan Final Anesthetic Review Family History of Problems with Anesthesia: No History of Problems with Anesthesia: No Documented by User: Daxa Rinaldi DO 01/18/25 14:21 [facility] Past Medical History Medical History Sepsis Peripheral vascular disease Bacteremia Cellulitis CHF (congestive heart failure) Respiratory failure with hypoxia Scoliosis Pneumothorax Contracture of hand Tachycardia Gastritis Major depressive disorder 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 Constipation Anxiety COVID-19 vaccine series completed 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 Gastrojejunostomy tube dislodgement Impaired mobility Osteoarthritis Back pain Hypothyroid DVT (deep venous thrombosis) Anemia History of pseudoachalasia of esophagus GERD (gastroesophageal reflux disease) Neuropathy Psychological disorder Cerebrovascular disease Chronic respiratory failure COPD (chronic obstructive pulmonary disease) Asthma HLD (hyperlipidemia) Dysphagia Family History Family history of problems with anesthesia: No Surgical History Surgical History History of inguinal hernia repair History of total right hip replacement Hx of colonoscopy History of esophagogastroduodenoscopy (EGD) (06/10/23) History of Problems with Anesthesia: No Social History Social History Household Members Other:: resides in [facility] Housing Other[phone] Are you a primary chronic care nurse to a significant other at home: No Do you presently have visiting nurse or other home services: No Patient Tobacco Use Status: Former Tobacco user Tobacco use type: Cigarette Cigarette Packs Per Day: 1 Cigarettes Per Day: 20.0 Years Smoked: 10 Use of substances other than those prescribed or required for medical reasons: No Are you DNR?: No Advance Directives: No Advance Directives Information Provided: Yes Advance Directives Date on File: 06/09/20 Meds Allergies Allergy/AdvReac Type Severity Reaction Status Date / Time monosodium glutamate (MSG) Allergy Severe throat Verified 01/18/25 14:00 close up morphine (MORPHINE) Allergy Severe Seizure Verified 01/18/25 14:00 ceftriaxone (CEFTRIAXONE) Allergy Unknown UNKNOWN Verified 01/18/25 14:00 Home Medications ?Medication ?Instructions ?Recorded ?Confirmed ?Last Taken ?Type divalproex 125 mg capsule,delayed 250 mg PO BEDTIME 06/08/20 01/18/25 11/19/23 History release sprinkle duloxetine 30 mg capsule,delayed 1 cap PO DAILY 06/08/20 01/18/25 11/20/23 History release ipratropium 20 mcg-albuterol 100 1 puff inhalation Q4H PRN 06/08/20 01/18/25 06/10/23 History mcg/actuation mist for inhalation Shortness Of Breath (Combivent Respimat) ondansetron HCl 4 mg tablet 4 mg PO Q6H PRN Nausea And Vomiting 06/08/20 01/18/25 Unknown History rivaroxaban 10 mg tablet (Xarelto) 1 tab PO DAILY 06/08/20 01/18/25 06/28/24 History acetaminophen 325 mg tablet 650 mg PO Q4H PRN Pain 02/07/22 01/18/25 Unknown History albuterol sulfate 90 mcg/actuation 1 inh inhalation QID PRN Shortness 02/07/22 01/18/25 Unknown History aerosol inhaler (ProAir HFA) Of Breath Or Wheezing calcium 600 mg (as 1 tab PO BID 02/07/22 01/18/25 Unknown History carbonate)-vitamin D3 5 mcg (200 unit) tablet (Calcium 600 + D(3)) carboxymethylcellulose sodium 2 drp ophthalmic (eye) BID 02/07/22 01/18/25 Unknown History levothyroxine 75 mcg tablet 1 tab PO DAILY 02/07/22 01/18/25 11/20/23 History atorvastatin 40 mg tablet (Lipitor) 40 mg PO BEDTIME 04/26/22 01/18/25 Unknown History sennosides 8.6 mg capsule (senna) 8.6 mg PO BID 04/26/22 01/18/25 Unknown History esomeprazole magnesium 40 mg 40 mg PO BID 11/28/22 01/18/25 11/20/23 History capsule,delayed release gabapentin 100 mg capsule 100 mg PO BEDTIME 11/28/22 01/18/25 Unknown History guaifenesin 600 mg tablet, 600 mg PO BID 01/20/23 01/18/25 Unknown History extended release 12 hr cholecalciferol (vitamin D3) 10 10 mcg PO DAILY 06/06/23 01/18/25 Unknown History mcg (400 unit) capsule ferrous sulfate 325 mg (65 mg 325 mg PO DAILY 06/06/23 01/18/25 Unknown History iron) tablet (Feosol) multivitamin 1 tab PO DAILY 06/06/23 01/18/25 Unknown History fluticasone furoate 200 1 ea inhalation DAILY 06/10/23 01/18/25 Unknown History mcg-vilanterol 25 mcg/dose inhalation powder (Breo Ellipta) fluticasone propionate 50 1 spray intranasal DAILY 11/28/23 01/18/25 Unknown History mcg/actuation nasal spray,suspension Exam Exam Date and Time: 01/18/25 1420 Height,Weight and Vital Signs: Height 5 ft 10 in Weight 57.107 kg Vital Signs Temperature 96.9 F 01/18/25 14:00 Pulse Rate 88 01/18/25 14:00 Respiratory Rate 16 01/18/25 14:00 Blood Pressure 119/63 01/18/25 14:00 Pulse Oximetry 95 01/18/25 14:00 Oxygen Delivery Method Room Air 01/18/25 14:00 Temperature 96.9 F 01/18/25 14:00 Pulse Rate 88 01/18/25 14:00 Respiratory Rate 16 01/18/25 14:00 Blood Pressure 119/63 01/18/25 14:00 Pulse Oximetry 95 01/18/25 14:00 Oxygen Delivery Method Room Air 01/18/25 14:00 Airway Mallampati Class: II TM Dist: >3cm Neck ROM: Limited Denture: Upper Heart: S1S2 Lungs: CTAB Assessment and Plan Assessment Anesthesia Assessment: Anesthesia Plan Discussed and Chart Reviewed Final Anesthetic Review Family History of Problems with Anesthesia: No History of Problems with Anesthesia: No NPO: Yes ASA Class: III Final Preanesthetic Review: No Changes in Pt Med Stat, Meds/Allgs Chart Reviewed, Consent Obtained/Reviewed and Anes Risks/Benef Reviewed Patient Risk: Intermediate Procedure Risk: Low Anesthetic Plan Anesthetic Plan: MAC: and Agree w/ Assess. and Plan Disposition: Standard PACU
--- NOTE | 2025-01-18 15:41 | W.PM.OPN ---
Operative Note Operative Note Date of Service: 01/18/25 Narrative: Procedure Description: EGD Indication: dysphagia Anesthesia: MAC FLEXIBLE TRANSORAL UPPER GASTROINTESTINAL ENDOSCOPY UPPER ENDOSCOPY Consent: Indications for the procedure and potential complications of bleeding, perforation, reaction to medications and missed diagnosis were discussed with the patient and informed consent was obtained. Instrument: Olympus GIF H 190 J mid size upper endoscope Monitoring: Vital signs and clinical assessment, continuous EKG monitoring, Pulse oximetry, Carbon Dioxide monitoring and blood pressure monitoring were done throughout the procedure. Procedure: The patient was placed in the left lateral decubitis position and pre-procedure medications were administered and a bite block was placed. The endoscope was inserted into the mouth and advanced under direct vision to the third part of duodenum. A careful inspection was made as the upper endoscope was withdrawn including a retroflexed examination of the proximal stomach; Findings and interventions are described below. Findings: Larynx: normal Esophagus: GE junction at 40 cm, with mild esophagitis. This esophagus was then dilated to 17 mm with savary wire guided bougie with superficial tears noted in upper esophagus. Stomach: Mild gastric erythema. Grade 2 flap valve on retroflexed examination of the cardia. Few fundic gland polyps noted. there was good gastric motility this time. Duodenum: normal, bx taken Intervention: savary wire guided dilation Impression and Post Procedure Diagnosis: Endoscopy Findings: esophageal stricture s/p dilation Plan: Continue present medications i.e PPI restart anti coagulation tomorrow morning can allow clears today and advance diet as tolerated tomorrow can use magic mouthwash prn for 1 week carafate,1 g BID if needed
[2025-01-18 15:45] VITALS: BP 107/52; PULSE 86; RESP 10; TEMP 36.5; O2SAT 95
[2025-01-18] MEDS: Mag&Al/Sim/Diphenhyd/Lidocaine 10 ML ORAL.SUSP PO (15:59)
[2025-01-18 16:00] VITALS: BP 116/56; PULSE 81; RESP 14; O2SAT 95
[2025-01-18 16:15] VITALS: BP 125/57; PULSE 84; RESP 16; TEMP 36.4; O2SAT 95
== END 2025-01-18 16:35 | disposition home or self-care (01) ==
PROVIDERS: PCP Family Medicine Geriatric Medicine; Visit Provider Internal Medicine Gastroenterology
PROC: 0DJ08ZZ Inspection of Upper Intestinal Tract, Via Natural or Artificial Opening Endoscopic (ICD-10-PCS; CPT 43235; principal; 2025-01-18 14:10)
DX: R13.10 Dysphagia, unspecified (principal); K31.7 Polyp of stomach and duodenum; K20.90 Esophagitis, unspecified without bleeding
CPT/HCPCS: 43248; J2003; J2704

== ENCOUNTER → 2025-01-18 13:38 | Outpatient (BNV) | payer MEDICARE, MEDICAID, SELFPAY | PROVIDERS: PCP Family Medicine Geriatric Medicine; Visit Provider Internal Medicine Gastroenterology | DX: R13.10 Dysphagia, unspecified (principal); K20.90 Esophagitis, unspecified without bleeding; K31.7 Polyp of stomach and duodenum | CPT/HCPCS: 43248 ==